=== PATIENT | male | born 1955 | race Caucasian/White ===

== ENCOUNTER → 2016-06-29 | Outpatient (CLI) | payer BC ==
[~2016-06-29] MED LIST: ASPCH81X PO; ASPI81TA28 PO; ESCI10TA17 PO; IMD2X PO; LISI20TA3 PO; LSN20 PO; MENTOIN TD; METO100T14 PO; METO25TA56 PO; NTRSLP4 SL; OMEP40CA41 PO; PRLSR20 PO; PSYL48.59 PO; PSYL55.43 PO; SALI0.657 NAE; SIMV80TA2 PO; TRIA0.5C9
[2016-06-29 13:11] LABS: MEAN CORPUSCULAR HGB CONC 32.9 g/dl (32-36)
[2016-06-29 13:21] LABS: HEMATOCRIT 30.1 % (42-52); MEAN CELL VOLUME 96.8 fL (80-100); MEAN CORPUSCULAR HEMOGLOBIN 31.8 pg (25-34); RED BLOOD COUNT 3.11 M/uL (4.7-6.1); WHITE BLOOD COUNT 4.25 K/uL (4.8-10.8)
[2016-06-29 13:33] LABS: BASO % 1.2 %; BASO ABS # 0.05 K/uL (0-0.2); COMPLETE YES; EOS % 29.4 %; LYMPH % 24.9 %; LYMPH ABS # 1.06 K/uL (1.2-3.4); MONO % 5.2 %; NEUT % 39.3 %; PLATELET COUNT 44 K/uL (130-400); PLT ESTIMATE DECREASED
== END | disposition home or self-care (01) ==
LOC: C.LABMFLN 08:52
PROVIDERS: ATTEND Internal Medicine
DX: D64.9 Anemia, unspecified (principal)

== ENCOUNTER → 2016-07-07 | Outpatient (CLI) | payer BC ==
--- NOTE | 2016-07-07 12:28 | DIAGNOSTIC IMAGING REPORT ---
NUCLEAR HEPATOBILIARY SCAN CLINICAL HISTORY: Right upper quadrant abdominal pain. COMPARISON STUDY: Abdominal CT dated 04/29/2016. TECHNIQUE: Dynamic images of the liver and anterior abdomen were obtained every 5 minutes for a total of 35 minutes following the IV administration of 5.5mCi of technetium 99m Choletec. FINDINGS: The hepatobiliary scan shows prompt and homogeneous hepatic uptake. There is visualized activity within the intra and extrahepatic biliary tree at 15 minutes, and within the gallbladder at 25 minutes. There is normal biliary to bowel transit, with small bowel visualized by 25 minutes. IMPRESSION: Unremarkable nuclear hepatobiliary scan. There is no scintigraphic evidence of cholecystitis. Electronically signed by: Raphael Reed M.D. 07/07/2016 12:26 PM Dictated Date/Time: 07/07/2016 12:25 PM
== END | disposition home or self-care (01) ==
LOC: C.NUCL 10:07
PROVIDERS: ATTEND Internal Medicine
DX: R10.9 Unspecified abdominal pain (principal)

== ENCOUNTER → 2016-09-29 | Day surgery (SDC) | payer BC ==
[2016-09-23 14:36] VITALS: BMI 26.0
[~2016-09-29] VITALS: Ht 177.8 cm; Wt 81.8 kg
[~2016-09-29] MED LIST changes: -ASPI81TA28 PO; -IMD2X PO; +LIDOCAINE HCL 2% 2 ML VIAL (20MG/ML) ONE; -LSN20 PO; -MENTOIN TD; -METO100T14 PO; -PRLSR20 PO; +PROPOFOL IV EMULSION 10 MG/ML 20 ML VIAL IV ONE; -PSYL55.43 PO; -SALI0.657 NAE; +SODIUM CHLORIDE 0.9% 500ML 500 ML IV ONE; -TRIA0.5C9
[2016-09-29 14:47] VITALS: Ht 177.8 cm; Wt 81.8 kg
--- NOTE | 2016-09-29 15:20 | Endo History and Physical ---
History & Physical Date of Service: September 29, 2016. Chief Complaint: ANEMIA Referring Physician: DR. KYLIE CHATTERJEE History of Present Illness 61 yo CM who presents for EGD secondary to anemia. Past Medical History Reflux, CABG, Heart Disease Past Surgical History Hx Cardiac Surgery: Yes (HEART CATH, AVR AND CAGG-3 VESSELS) Hx Internal Defibrillator: No Hx Pacemaker: No Hx Abdominal Surgery: Yes (RT INGUINAL HERNIA) Hx of Implantable Prosthesis: No Hx Post-Op Nausea and Vomiting: No Hx Cancer Surgery: No Hx Thoracic Surgery: No Hx Orthopedic: No Hx Urinary Tract Surgery: No Family History None Social History Smoking Status: Former Smoker Hx Substance Use: No Hx Alcohol Use: No Allergies Coded Allergies: Fluoxetine (Verified Allergy, Severe, rash, 09/23/16) Tramadol (Verified Allergy, Unknown, RASH, 09/23/16) Current Medications Reported Home Medications Medications Dose Route/Sig Max Daily Dose Days Date Category Metamucil (Psyllium) 48.57 % Pow 1 Dose PO DAILY PRN 09/23/16 Reported Zocor (Simvastatin) 80 Mg Tab 80 Mg PO QPM 09/23/16 Reported Prilosec (Omeprazole) 40 Mg Cap 40 Mg PO QAM 09/23/16 Reported Lopressor (Metoprolol Tartrate) 25 Mg Tab 25 Mg PO BID 09/23/16 Reported Prinivil (Lisinopril) 20 Mg Tab 20 Mg PO QAM 09/23/16 Reported Lexapro (Escitalopram Oxalate) 10 Mg Tab 10 Mg PO HS 09/23/16 Reported Aspirin Chewable (Aspirin) 81 Mg Chew 81 Mg PO QAM 09/23/16 Reported Vital Signs Weight (Kilograms): 81.82 Height (Feet): 5 Height (Inches): 10 Date Time Temp Pulse Resp B/P Pulse Ox O2 Delivery O2 Flow Rate FiO2 09/29/16 14:49 36.6 50 24 134/58 96 Room Air Physical Exam General Appearance: WD/WN, no apparent distress Respiratory/Chest: Auscultation: breath sounds normal Cardiovascular: Heart Auscultation: RRR Abdomen: Bowel Sounds: normal Inspection & Palpation: soft, non-distended, no tenderness, guarding & rebound Assessment and Plan Assessment: 61 yo CM who presents for EGD secondary to anemia. Plan: Proceed with EGD.
--- NOTE | 2016-09-29 16:06 | GI REPORT ---
Procedure Date: 09/29/2016 3:39 PM Procedure: Upper GI endoscopy Indications: Unexplained iron deficiency anemia Medicines: Monitored Anesthesia Care Complications: No immediate complications. Estimated Blood Loss: Estimated blood loss: none. Procedure: Pre-Anesthesia Assessment: - Prior to the procedure, a History and Physical was performed, and patient medications and allergies were reviewed. The patient's tolerance of previous anesthesia was also reviewed. The risks and benefits of the procedure and the sedation options and risks were discussed with the patient. All questions were answered, and informed consent was obtained. Prior Anticoagulants: The patient has taken aspirin, last dose was 1 day prior to procedure. ASA Grade Assessment: III - A patient with severe systemic disease. After reviewing the risks and benefits, the patient was deemed in satisfactory condition to undergo the procedure. After obtaining informed consent, the endoscope was passed under direct vision. Throughout the procedure, the patient's blood pressure, pulse, and oxygen saturations were monitored continuously. The scope was introduced through the mouth, and advanced to the second part of duodenum. The upper GI endoscopy was accomplished without difficulty. The patient tolerated the procedure well. Findings: The esophagus was normal. Localized mild inflammation characterized by erythema was found in the gastric antrum. Biopsies were taken with a cold forceps for histology. The examined duodenum was normal. Impression: - Normal esophagus. - Gastritis. Biopsied. - Normal examined duodenum. Recommendation: - Resume previous diet. - Continue present medications. - Await pathology results. - Return to GI office as previously scheduled. Emil Izquierdo DO 09/29/2016 4:06:35 PM This report has been signed electronically. Note Initiated On: 09/29/2016 3:39 PM I attest to the content of the Intraoperative Record and orders documented therein, exceptions below
--- NOTE | 2016-09-29 16:13 | Anesthesiology Progress Note ---
Anesthesia Post Op Note Date & Time September 29, 2016 at 16:12 Vital Signs Pain Intensity: 0 Vital Signs Past 12 Hours Date Time Temp Pulse Resp B/P Pulse Ox O2 Delivery O2 Flow Rate FiO2 09/29/16 16:00 36.6 49 16 131/55 96 Room Air 09/29/16 14:49 36.6 50 24 134/58 96 Room Air Notes Mental Status: alert / awake / arousable, participated in evaluation Pt Amnestic to Procedure: Yes Nausea / Vomiting: adequately controlled Pain: adequately controlled Airway Patency, RR, SpO2: stable & adequate BP & HR: stable & adequate Hydration State: stable & adequate Anesthetic Complications: no major complications apparent Pt doing very well.
[2016-09-29 16:22] VITALS: BP 151/62; PULSE 49; O2SAT 98
--- NOTE | 2016-09-29 16:22 | Discharge Instructions ---
Endoscopy Patient Instructions Date / Procedure(s) Performed September 29, 2016. EGD Allergy Information Coded Allergies: Fluoxetine (Verified Allergy, Severe, rash, 09/23/16) Tramadol (Verified Allergy, Unknown, RASH, 09/23/16) Discharge Date / Findings September 29, 2016. Gastritis s/p biopsies Medication Instructions Stopped Medication(s): ASPIRIN OK to resume all medications today as prescribed Reported Home Medications Medications Dose Route/Sig Max Daily Dose Days Date Category Metamucil (Psyllium) 48.57 % Pow 1 Dose PO DAILY PRN 09/23/16 Reported Zocor (Simvastatin) 80 Mg Tab 80 Mg PO QPM 09/23/16 Reported Prilosec (Omeprazole) 40 Mg Cap 40 Mg PO QAM 09/23/16 Reported Lopressor (Metoprolol Tartrate) 25 Mg Tab 25 Mg PO BID 09/23/16 Reported Prinivil (Lisinopril) 20 Mg Tab 20 Mg PO QAM 09/23/16 Reported Lexapro (Escitalopram Oxalate) 10 Mg Tab 10 Mg PO HS 09/23/16 Reported Aspirin Chewable (Aspirin) 81 Mg Chew 81 Mg PO QAM 09/23/16 Reported Provider Instructions Activity Restrictions - No exercising or heavy lifting for 24 hours. - Do not drink alcohol the day of the procedure. - Do not drive a car or operate machinery until the day after the procedure. - Do not make any important decisions or sign important papers in 24 hours after the procedure. Following Day: - Return to full activity which may include returning to work/school. Diet Start your diet with liquids and light foods (jello, soup, juice, toast). Then eat your usual diet if not nauseated. Treatment For Common After Affects For mild abdominal pain, bloating, or excessive gas: - Rest - Eat lightly - Lie on right side Follow-Up Information Follow-up with DR. KYLIE CHATTERJEE as scheduled Anesthesia Information What You Should Know You have had a procedure that required some medicine to reduce anxiety and discomfort. This treatment is called moderate sedation. After receiving the treatment, you may be sleepy, but you will be able to breathe on your own. The effects of the treatment may last for several hours. Follow these instructions along with Activity/Diet recommendations noted above: * Do NOT do anything where dizziness or clumsiness would be dangerous. * Rest quietly at home today, then you can be up and about tomorrow. * Have a responsible person stay with you the rest of today. * You may have had an I.V. today. If so, you may take the dressing off later today. Recommendations Call your doctor if: * Trouble breathing * Continuous vomiting for more than 24 hours * Temperature above 101 degrees * Severe abdominal pain or bloating * Pain not relieved by pain medicine ordered * There is increased drainage or redness from any incision * A large amount of rectal bleeding greater than 2-3 tablespoons. (If you had a polyp/s removed or have hemorrhoids, a small amount of blood - from the rectum is to be expected.) * You have any unanswered questions or concerns. IN THE EVENT OF A SERIOUS EMERGENCY, GO TO THE NEAREST EMERGENCY ROOM Your discharge instructions were prepared by provider Emil Izquierdo. Patient Instructions Signature Page Sinan Ibarra Patient (or Guardian) Signature/Date: I have read and understand the instructions given to me by my caregivers. Caregiver/RN/Doctor Signature/Date: The above-named patient and/or guardian has received patient instructions on this date. + Original Patient Signature Page (only) stays with chart. Please make copy for patient.
== END | disposition home or self-care (01) ==
LOC: C.GI 14:28
PROVIDERS: ATTEND Internal Medicine
DX: D64.9 Anemia, unspecified (principal); Z87.891 Personal history of nicotine dependence; Z79.82 Long term (current) use of aspirin

== ENCOUNTER → 2016-10-07 | Outpatient (CLI) | payer BC ==
[~2016-10-07] MED LIST changes: -LIDOCAINE HCL 2% 2 ML VIAL (20MG/ML) ONE; -PROPOFOL IV EMULSION 10 MG/ML 20 ML VIAL IV ONE; -SODIUM CHLORIDE 0.9% 500ML 500 ML IV ONE
[2016-10-07 18:30] LABS: BASO % 0.7 %; BASO ABS # 0.03 K/uL (0-0.2); COMPLETE YES; EOS % 7.8 %; IG% 0.2 %; LYMPH % 26.1 %; MEAN CELL VOLUME 100.6 fL (80-100); MEAN CORPUSCULAR HEMOGLOBIN 32.4 pg (25-34); MEAN CORPUSCULAR HGB CONC 32.2 g/dl (32-36); MONO % 9.5 %; NEUT % 55.7 %; PLATELET COUNT 74 K/uL (130-400); PLT ESTIMATE DECREASED; RED BLOOD COUNT 3.18 M/uL (4.7-6.1); WHITE BLOOD COUNT 4.22 K/uL (4.8-10.8)
== END | disposition home or self-care (01) ==
LOC: C.LABMFLN 10:58
PROVIDERS: ATTEND Internal Medicine Hematology & Oncology
DX: D69.6 Thrombocytopenia, unspecified (principal)

== ENCOUNTER 2017-01-21 07:30 | Emergency (ER) | payer BC ==
[~2017-01-21] VITALS: Ht 177.8 cm; Wt 85.8 kg
[~2017-01-21 07:30] MED LIST changes: -NTRSLP4 SL
[2017-01-21] MEDS ORDERED: SODIUM CHLORIDE 0.9% 1000ML 1,000 ML IV STA (07:44)
--- NOTE | 2017-01-21 07:45 | EMERGENCY ROOM VISIT NOTE ---
History Report prepared by Sarbjit: Morris Jeffrey Under the Supervision of: Dr. Moreno Alfaro M.D. First contact with patient: 07:35 Chief Complaint: CHEST PAIN Stated Complaint: CHEST/BACK/STOMACH PAINS Nursing Triage Summary: pt reports cp started 30 min ago radiates into back and abdomen History of Present Illness The patient is a 61 year old male who presents to the Emergency Room with complaints of a tearing chest pain that began 30 minutes ago. He rates his pain a 6/10 in severity. He states that his pain radiates into his back. At this time , the patient states his pain began in his abdomen, but then progressed into his chest. He has a past medical history of a CABG and a valve replacement. He denies any melena or hematochezia. He is not on a blood thinner. He notes that he is more pale than usual. Source of History: patient Onset: 30 minutes ago Position: chest Symptom Intensity: 6/10 Quality: other (tearing) Timing: constant Associated Symptoms: No melena, No hematochezia Note: He notes that he is more pale than usual. Review of Systems See HPI for pertinent positives & negatives. A total of 10 systems reviewed and were otherwise negative. 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 (5) Kidney disease Family History Diabetes mellitus FH: cancer FH: heart disease FH: lung disease Hypertension Idiopathic thrombocytopenic purpura Social History Smoking Status: Former Smoker Alcohol Use: none Drug Use: none Marital Status: Housing Status: lives with family Occupation Status: employed Current/Historical Medications Scheduled Aspirin (Aspirin Chewable), 81 MG PO QAM Escitalopram (Lexapro), 10 MG PO HS Lisinopril (Prinivil), 20 MG PO QAM Metoprolol Tartrate (Lopressor) (Lopressor), 25 MG PO BID Omeprazole (Prilosec), 40 MG PO QAM Simvastatin (Zocor), 80 MG PO QPM Scheduled PRN Psyllium (Metamucil), 1 DOSE PO DAILY PRN for PRN Allergies Coded Allergies: Fluoxetine (Verified Allergy, Severe, rash, 01/21/17) Tramadol (Verified Allergy, Unknown, RASH, 01/21/17) Physical Exam Vital Signs Date Time Temp Pulse Resp B/P (MAP) Pulse Ox O2 Delivery O2 Flow Rate FiO2 01/21/17 09:40 100 Room Air 01/21/17 09:18 53 18 126/70 100 Room Air 01/21/17 08:26 99 Room Air 01/21/17 08:26 59 18 123/57 99 Room Air 01/21/17 08:26 59 123/57 99 Room Air 01/21/17 08:07 50 18 120/51 01/21/17 07:43 55 01/21/17 07:32 36.7 47 20 89/51 96 Room Air Physical Exam GENERAL: Patient is pale, ill appearing, and in mild distress. HEENT: No acute trauma, normocephalic atraumatic, mucous membranes moist, no nasal congestion, no scleral icterus. NECK: No stridor, no adenopathy, no meningismus, trachea is midline. LUNGS: No dyspnea. Clear to auscultation and equal bilaterally. No wheeze, no rhonchi. HEART: Bradycardic rate and regular rhythm. Systolic murmur without any rubs or gallops appreciated. ABDOMEN: Soft, nontender, bowel sounds positive, no masses appreciated, no peritonitis. BACK: No midline tenderness, no CVA tenderness EXTREMITIES: Normal motion all extremities, no cyanosis, no edema. NEUROLOGIC: Alert and oriented, no acute motor or sensory deficits, no focal weakness, cranial nerves grossly intact. SKIN: No rash, no jaundice, no diaphoresis. Medical Decision & Procedures ER Provider Diagnostic Interpretation: Radiology results and stated below per my review and radiologist interpretation: CHEST COMBO ANGIOGRAPHY HISTORY: 61 years-old Male presents with acute chest pain with radiation to the back and abdomen. History of prostatic valve replacement COMPARISON: CT chest 06/25/2015 TECHNIQUE: CT angiogram of the chest was obtained both with and without the use of 94 mL Optiray 320. 3-D coronal and sagittal MIPS were obtained from the axial data set and cemented for review. Additional 3-D rendered images were generated from a separate workstation. A dose lowering technique was used consistent with the principals of [place]. FINDINGS: CTA CHEST: No intramural hematoma identified on the noncontrast scan. There is moderate to extensive atherosclerosis of the thoracic aorta and proximal great vessels. Prior median sternotomy and CABG. [place] coronary arterial calcifications are present. Prosthetic aortic valve is noted. There are annular calcifications of the mitral and aortic valve. Heart is mildly enlarged without pericardial effusion. The thoracic aorta is normal in caliber without aneurysm or dissection. 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 Reflux of contrast into the hepatic veins and IVC is likely secondary to technique. The opacified pulmonary arterial tree is within normal limits. CT CHEST: No dominant thyroid nodule. Mildly prominent likely physiologic right hilar lymph nodes are seen without pathologic adenopathy by CT size criteria. There is no pneumothorax. Small left pleural effusion is present with subsegmental consolidative opacities of the left lung base. There is minimal likely subsegmental atelectasis of the right lung. Central airways are patent with mild bronchial wall thickening of the left lung base. Nonspecific scattered nonenlarged gastrohepatic lymph nodes are seen. There is a small sliding-type hiatal hernia. Soft tissues are unremarkable. Bones are intact. IMPRESSION: 1. No thoracic aortic aneurysm or dissection. 2. Subsegmental consolidative opacities of the left lung base suggest pneumonia with associated small left pleural effusion. 3. Prior median sternotomy and CABG with prosthetic aortic valve. Moderate to extensive atherosclerotic plaquing involves the thoracic aorta and proximal great vessels. The above report was generated using voice recognition software. It may contain grammatical, syntax or spelling errors. Electronically signed by: Wenceslao Perez M.D. 01/21/2017 8:35 AM Dictated Date/Time: 01/21/2017 8:28 AM ANGIO ABD/PELVIS WITH CONTRAST CLINICAL HISTORY: 61 years-old Male presents with acute chest pain which radiates into the abdomen and back. History of aortic valve replacement and atherosclerotic vascular disease. COMPARISON STUDY: CTA chest of same day, CT abdomen and pelvis 04/29/2016. TECHNIQUE: Following the IV administration of 94 cc of Optiray 320, CT angiogram of the abdomen and pelvis was performed from the lung bases the proximal femora. Images are reviewed in the axial, sagittal, and coronal planes. 3-D MIPS images are created and assessed. IV contrast was administered without complication. A dose lowering technique was utilized adhering to the principles of ALARA. FINDINGS: CTA ABDOMEN AND PELVIS: Extensive atherosclerotic plaquing of the abdominal aorta and iliac vasculature is noted without aortic dissection or aneurysm. The celiac trunk, superior and inferior mesenteric arteries and iliac arteries are patent. Plaquing at the origin of the renal arteries, right greater than left appears to cause at least 50% stenosis. Atherosclerotic plaquing at the origins of the celiac trunk and superior mesenteric artery are nicely seen on image 40 of the sagittal MIPS series, with approximately 80% stenosis of the celiac trunk and 90% stenosis of the SMA. No filling defects are seen within the mesenteric vasculature. CT ABDOMEN/PELVIS: Small left pleural effusion is noted with subsegmental consolidative left basilar opacities, better evaluated on CT chest of same day. No pneumoperitoneum. Gallstones are seen layering within the gallbladder lumen. No CT evidence of acute cholecystitis. Liver, pancreas and adrenal glands are within normal limits. Spleen is mildly enlarged, 15 cm. There is mild to moderate right renal atrophy with probable cyst of the inferior pole, 4 mm. Left kidney is unremarkable. Ureters are within normal limits. Urinary bladder is partially collapsed. Scattered nonenlarged mesenteric and retroperitoneal lymph nodes are seen without pathologic adenopathy by CT size criteria. These may be reactive and appear unchanged from comparison. Small sliding type hiatal hernia. No bowel obstruction. Scattered noninflamed colonic diverticula are noted. No CT evidence of acute diverticulitis. Decreased caliber involving the descending colon and splenic flexure suggests nondistention without inflammatory stranding. Appendix is normal. Small left fat filled inguinal hernias present. Small fat filled periumbilical hernia is noted, diastases 1.5 cm. There is facet arthrosis of the lower lumbar spine. IMPRESSION: 1. Extensive atherosclerotic plaquing of the abdominal aorta and proximal branch vasculature without dissection or aneurysm. 2. 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 3. Narrowing of the bilateral renal artery origins, right greater than left is noted with moderate right renal atrophy which may be sequela of long-standing renal arterial hypertension. 4. Nonspecific splenomegaly. 5. Cholelithiasis without CT evidence of acute cholecystitis. 6. Colonic diverticulosis without CT evidence of acute diverticulitis. 7. Small sliding-type hiatal hernia. The above report was generated using voice recognition software. It may contain grammatical, syntax or spelling errors. Electronically signed by: Wenceslao Perez M.D. 01/21/2017 8:51 AM Dictated Date/Time: 01/21/2017 8:35 AM Laboratory Results 01/21/17 07:50 Red Blood Count 3.64, Mean Corpuscular Volume 96.4, Mean Corpuscular Hemoglobin 32.1, Mean Corpuscular Hemoglobin Concent 33.3, Neutrophils (%) (Auto) 59.7, Lymphocytes (%) (Auto) 25.4, Monocytes (%) (Auto) 8.7, Eosinophils (%) (Auto) 5.4, Basophils (%) (Auto) 0.8, Neutrophils # (Auto) 3.00, Lymphocytes # (Auto) 1.28, Monocytes # (Auto) 0.44, Eosinophils # (Auto) 0.27, Basophils # (Auto) 0.04 01/21/17 07:50 Test 01/21/17 07:50 01/21/17 07:55 01/21/17 08:22 White Blood Count 5.03 K/uL (4.8-10.8) Red Blood Count 3.64 M/uL (4.7-6.1) Hemoglobin 11.7 g/dL (14.0-18.0) Hematocrit 35.1 % (42-52) Mean Corpuscular Volume 96.4 fL (80-100) Mean Corpuscular Hemoglobin 32.1 pg (25-34) Mean Corpuscular Hemoglobin Concent 33.3 g/dl (32-36) Platelet Count 85 K/uL (130-400) Neutrophils (%) (Auto) 59.7 % Lymphocytes (%) (Auto) 25.4 % Monocytes (%) (Auto) 8.7 % Eosinophils (%) (Auto) 5.4 % Basophils (%) (Auto) 0.8 % Neutrophils # (Auto) 3.00 K/uL (1.4-6.5) Lymphocytes # (Auto) 1.28 K/uL (1.2-3.4) Monocytes # (Auto) 0.44 K/uL (0.11-0.59) Eosinophils # (Auto) 0.27 K/uL (0-0.5) Basophils # (Auto) 0.04 K/uL (0-0.2) RDW Standard Deviation 51.4 fL (36.4-46.3) RDW Coefficient of Variation 14.6 % (11.5-14.5) Immature Granulocyte % (Auto) 0.0 % Immature Granulocyte # (Auto) 0.00 K/uL (0.00-0.02) Platelet Estimate DECREASED Red Blood Cell Morphology Unremarkable Prothrombin Time 10.9 SECONDS (9.0-12.0) Prothromb Time International Ratio 1.0 (0.9-1.1) Activated Partial Thromboplast Time 23.1 SECONDS (21.0-31.0) Partial Thromboplastin Ratio 0.9 Est Creatinine Clear Calc Drug Dose 56.5 ml/min Estimated GFR () 62.0 Estimated GFR (Non- 53.5 BUN/Creatinine Ratio 22.4 (10-20) Calcium Level 9.1 mg/dl (8.5-10.1) Total Bilirubin 0.6 mg/dl (0.2-1) Aspartate Amino Transf (AST/SGOT) 30 U/L (15-37) Alanine Aminotransferase (ALT/SGPT) 33 U/L (12-78) Alkaline Phosphatase 94 U/L (45-117) Total Creatine Kinase 118 U/L (39-308) Creatine Kinase MB 3.0 ng/ml (0.5-3.6) Creatine Kinase MB Ratio 2.5 (0-3.0) Troponin I < 0.015 ng/ml (0-0.045) Total Protein 7.2 gm/dl (6.4-8.2) Albumin 3.6 gm/dl (3.4-5.0) Globulin 3.6 gm/dl (2.5-4.0) Albumin/Globulin Ratio 1.0 (0.9-2) Bedside Hemoglobin 12.2 g/dl (14.0-18.0) Bedside Hematocrit 36 % (42-52) Bedside Sodium 142 mEq/L (135-144) Bedside Potassium 3.8 mEq/L (3.3-5.0) Bedside Chloride 105 mEq/L (101-112) Bedside Total CO2 25 mEq/l (24-31) Anion Gap 17.0 mmol/L (16-25) Bedside Blood Urea Nitrogen 31 mg/dl (7-18) Bedside Creatinine 1.4 mg/dl (0.6-1.3) Bedside Glucose (other) 144 mg/dl (70-99) Bedside Ionized Calcium (Rogelio) 1.21 mmol/l (1.12-1.32) Bedside Troponin I < 0.030 ng/ml (0-0.045) Laboratory results as reviewed by me. Medications Administered Medications (Trade) Dose Ordered Sig/Brayan Route Start Time Stop Time Status Last Admin Dose Admin Sodium Chloride 1,000 ml @ 999 mls/hr Q1H1M STAT IV 01/21/17 07:44 01/21/17 08:44 DC 01/21/17 07:52 999 MLS/HR Sodium Chloride 1,000 ml @ 80 mls/hr [id number] IV 01/21/17 10:26 02/20/17 10:25 01/21/17 11:42 80 MLS/HR ECG Indication: chest pain Rate (beats per minute): 55 Rhythm: sinus bradycardia Findings: no acute ischemic change, no ectopy ED Course 734: The patient was evaluated in room B6. A complete history and physical exam was performed. 929: Upon reevaluation, the patient is resting. Discussed results and treatment plan with the patient. He verbalized understanding and agreement with the treatment plan. The patient will be evaluated Dr. Maureen CASTILLO, for further management. Medical Decision Differential: Cholecystitis, Gallbladder disfunction, Hepatic Disfunction, Gastritis/PUD, Pancreatitis, ACS, Aortic Pathology, amongst other pathologies entertained. Resident Physician Supervision Note: Dr. Maurilio Krishna was resident physician during care of patient. I separately evaluated patient and did history and exam. I discussed the case with the resident and generally agree with the findings and plan. 61 yr old male arrives with substernal chest pain, abdominal pain tearing in to back and is hypotensive. History of aortic replacement. Ill appearing and tail. Two IVs obtained, Istat with Cr 1.4 and taken emergently to CT to rule out dissection given history and exam. CTs without acute finding though does have severe SMA stenosis. It could be he is having periodic ischemia which would explain periodic abdominal pains. With improvement in BP he has resolution of symptoms and feeling much better. WIll need to come in for cardiac rule out given his history along with discussion of further evaluation of pain/symptoms. Medication Reconcilliation Current Medication List: was personally reviewed by me Blood Pressure Screening Patient's blood pressure: Low blood pressure Will be addressed as an inpatient. Consults Time Called: [phone] Consulting Physician: Dr. Maureen CASTILLO Returned Call: [phone] Discussed the patient's case. The patient will be evaluated for further treatment and disposition. Impression Primary Impression: Substernal chest pain Additional Impression: Hypotension Scribe Attestation The scribe's documentation has been prepared under my direction and personally reviewed by me in its entirety. I confirm that the note above accurately reflects all work, treatment, procedures, and medical decision making performed by me. Departure Information Dispostion Being Evaluated By Hospitalist Referrals Pro,Hill Willson M.D. (PCP) Patient Instructions [facility] Problem Qualifiers
[2017-01-21] MEDS ORDERED: OPTIRAY 320 IV PRN (08:00)
[2017-01-21 08:07] LABS: ISTAT CREATININE 1.4 mg/dl (0.6-1.3); ISTAT HEMOGLOBIN 12.2 g/dl (14.0-18.0); ISTAT IONIZED CALCIUM 1.21 mmol/l (1.12-1.32)
--- NOTE | 2017-01-21 08:11 | EMERGENCY ROOM VISIT NOTE ---
History First contact with patient: 07:35 Chief Complaint: CHEST PAIN Stated Complaint: CHEST/BACK/STOMACH PAINS Nursing Triage Summary: pt reports cp started 30 min ago radiates into back and abdomen History of Present Illness The patient is a 61 year old male with Hx of chronic ITP, paroxysmal atrial fibrillation, CABG and aortic valve replacement in 2014 who presents to the Emergency Room with complaints of abdominal/chest pain radiating to his back. This started 30 minutes before arrival in the ER. It started in his central abdomen then radiated to his chest and back, came on at rest shortly following a normal bowel movement, severity 8/10, was the worse it has been on onset then slowly progressively improved. He does not feel it is related to food. He has been having similar but less intense pains over the last week every other day lasting for around 5 minutes which come on at rest and when lying down. He also reports a similar pain the last year assessed at a different hospital but he cannot remember what he was diagnosed with. He remembers going up on his PPI at that time. He has never had an ME and denies angina but has coronary artery disease which was found on routine cardiac cath for pre-op assessment for his AVR. He took his metoprolol and aspirin as usual this morning. Review of Systems Constitutional: No fever, No chills Eyes: No worsening of vision ENT: No hearing loss Respiratory: No cough, No sputum, No wheezing, No shortness of breath Cardiovascular: + chest pain, No orthopnea, No PND, No edema, No claudication, No palpitations Abdomen: + pain, No nausea, No vomiting, No diarrhea, No constipation, No GI bleeding Musculoskeletal: No joint pain, No muscle pain Genitourinary - Male: No hematuria, No dysuria, No urinary frequency Endocrine: No fatigue, No excessive thirst, No excessive urination Hematologic / Lymphatic: No abnormal bleeding/bruising Integumentary: No rash, No itch Past Medical/Surgical History Medical Problems: (1) Diarrhea (2) Heart disease (3) Hypertension (4) 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 (5) Kidney disease Family History Diabetes mellitus FH: cancer FH: heart disease FH: lung disease Hypertension Idiopathic thrombocytopenic purpura Denies family history of aortic dissection or aneurysm Social History Smoking Status: Former Smoker Alcohol Use: none Drug Use: none Marital Status: Housing Status: lives with family Occupation Status: employed Current/Historical Medications Scheduled Aspirin (Aspirin Chewable), 81 MG PO QAM Escitalopram (Lexapro), 10 MG PO HS Lisinopril (Prinivil), 20 MG PO QAM Metoprolol Tartrate (Lopressor) (Lopressor), 25 MG PO BID Omeprazole (Prilosec), 40 MG PO QAM Simvastatin (Zocor), 80 MG PO QPM Scheduled PRN Psyllium (Metamucil), 1 DOSE PO DAILY PRN for PRN Physical Exam Vital Signs Date Time Temp Pulse Resp B/P (MAP) Pulse Ox O2 Delivery O2 Flow Rate FiO2 01/21/17 09:40 100 Room Air 01/21/17 09:18 53 18 126/70 100 Room Air 01/21/17 08:26 99 Room Air 01/21/17 08:26 59 18 123/57 99 Room Air 01/21/17 08:26 59 123/57 99 Room Air 01/21/17 08:07 50 18 120/51 01/21/17 07:43 55 01/21/17 07:32 36.7 47 20 89/51 96 Room Air Physical Exam General Appearance: no apparent distress, + pertinent finding (appears pale) Eyes: normal inspection, PERRL, EOMI Neck: supple, no adenopathy, no JVD, no carotid bruits, trachea midline Respiratory/Chest: chest non-tender, lungs clear, normal breath sounds, no respiratory distress, no accessory muscle use Cardiovascular: regular rate, rhythm, no murmur, normal peripheral pulses ( no radial-radial or left radial-left femoral delay) Abdomen / GI: normal bowel sounds, non tender, soft, no organomegaly Back: no CVA tenderness Extremities: normal inspection, no calf tenderness, normal capillary refill , no pedal edema 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 History of prostatic valve replacement COMPARISON: CT chest 06/25/2015 TECHNIQUE: CT angiogram of the chest was obtained both with and without the use of 94 mL Optiray 320. 3-D coronal and sagittal MIPS were obtained from the axial data set and cemented for review. Additional 3-D rendered images were generated from a separate workstation. A dose lowering technique was used consistent with the principals of HAMILTON. FINDINGS: CTA CHEST: No intramural hematoma identified on the noncontrast scan. There is moderate to extensive atherosclerosis of the thoracic aorta and proximal great vessels. Prior median sternotomy and CABG. [place] coronary arterial calcifications are present. Prosthetic aortic valve is noted. There are annular calcifications of the mitral and aortic valve. Heart is mildly enlarged without pericardial effusion. The thoracic aorta is normal in caliber without aneurysm or dissection. 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 Reflux of contrast into the hepatic veins and IVC is likely secondary to technique. The opacified pulmonary arterial tree is within normal limits. CT CHEST: No dominant thyroid nodule. Mildly prominent likely physiologic right hilar lymph nodes are seen without pathologic adenopathy by CT size criteria. There is no pneumothorax. Small left pleural effusion is present with subsegmental consolidative opacities of the left lung base. There is minimal likely subsegmental atelectasis of the right lung. Central airways are patent with mild bronchial wall thickening of the left lung base. Nonspecific scattered nonenlarged gastrohepatic lymph nodes are seen. There is a small sliding-type hiatal hernia. Soft tissues are unremarkable. Bones are intact. IMPRESSION: 1. No thoracic aortic aneurysm or dissection. 2. Subsegmental consolidative opacities of the left lung base suggest pneumonia with associated small left pleural effusion. 3. Prior median sternotomy and CABG with prosthetic aortic valve. Moderate to extensive atherosclerotic plaquing involves the thoracic aorta and proximal great vessels. The above report was generated using voice recognition software. It may contain grammatical, syntax or spelling errors. Electronically signed by: Wenceslao Perez M.D. 01/21/2017 8:35 AM Dictated Date/Time: 01/21/2017 8:28 AM ANGIO ABD/PELVIS WITH CONTRAST CLINICAL HISTORY: 61 years-old Male presents with acute chest pain which radiates into the abdomen and back. History of aortic valve replacement and atherosclerotic vascular disease. COMPARISON STUDY: CTA chest of same day, CT abdomen and pelvis 04/29/2016. TECHNIQUE: Following the IV administration of 94 cc of Optiray 320, CT angiogram of the abdomen and pelvis was performed from the lung bases the proximal femora. Images are reviewed in the axial, sagittal, and coronal planes. 3-D MIPS images are created and assessed. IV contrast was administered without complication. A dose lowering technique was utilized adhering to the principles of ALARA. FINDINGS: CTA ABDOMEN AND PELVIS: Extensive atherosclerotic plaquing of the abdominal aorta and iliac vasculature is noted without aortic dissection or aneurysm. The celiac trunk, superior and inferior mesenteric arteries and iliac arteries are patent. Plaquing at the origin of the renal arteries, right greater than left appears to cause at least 50% stenosis. Atherosclerotic plaquing at the origins of the celiac trunk and superior mesenteric artery are nicely seen on image 40 of the sagittal MIPS series, with approximately 80% stenosis of the celiac trunk and 90% stenosis of the SMA. No filling defects are seen within the mesenteric vasculature. CT ABDOMEN/PELVIS: Small left pleural effusion is noted with subsegmental consolidative left basilar opacities, better evaluated on CT chest of same day. No pneumoperitoneum. Gallstones are seen layering within the gallbladder lumen. No CT evidence of acute cholecystitis. Liver, pancreas and adrenal glands are within normal limits. Spleen is mildly enlarged, 15 cm. There is mild to moderate right renal atrophy with probable cyst of the inferior pole, 4 mm. Left kidney is unremarkable. Ureters are within normal limits. Urinary bladder is partially collapsed. Scattered nonenlarged mesenteric and retroperitoneal lymph nodes are seen without pathologic adenopathy by CT size criteria. These may be reactive and appear unchanged from comparison. Small sliding type hiatal hernia. No bowel obstruction. Scattered noninflamed colonic diverticula are noted. No CT evidence of acute diverticulitis. Decreased caliber involving the descending colon and splenic flexure suggests nondistention without inflammatory stranding. Appendix is normal. Small left fat filled inguinal hernias present. Small fat filled periumbilical hernia is noted, diastases 1.5 cm. There is facet arthrosis of the lower lumbar spine. IMPRESSION: 1. Extensive atherosclerotic plaquing of the abdominal aorta and proximal branch vasculature without dissection or aneurysm. 2. 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 3. Narrowing of the bilateral renal artery origins, right greater than left is noted with moderate right renal atrophy which may be sequela of long-standing renal arterial hypertension. 4. Nonspecific splenomegaly. 5. Cholelithiasis without CT evidence of acute cholecystitis. 6. Colonic diverticulosis without CT evidence of acute diverticulitis. 7. Small sliding-type hiatal hernia. The above report was generated using voice recognition software. It may contain grammatical, syntax or spelling errors. Electronically signed by: Wenceslao Perez M.D. 01/21/2017 8:51 AM Dictated Date/Time: 01/21/2017 8:35 AM Laboratory Results 01/21/17 07:50 Red Blood Count 3.64, Mean Corpuscular Volume 96.4, Mean Corpuscular Hemoglobin 32.1, Mean Corpuscular Hemoglobin Concent 33.3, Neutrophils (%) (Auto) 59.7, Lymphocytes (%) (Auto) 25.4, Monocytes (%) (Auto) 8.7, Eosinophils (%) (Auto) 5.4, Basophils (%) (Auto) 0.8, Neutrophils # (Auto) 3.00, Lymphocytes # (Auto) 1.28, Monocytes # (Auto) 0.44, Eosinophils # (Auto) 0.27, Basophils # (Auto) 0.04 01/21/17 07:50 Test 01/21/17 07:50 01/21/17 07:55 01/21/17 08:22 White Blood Count 5.03 K/uL (4.8-10.8) Red Blood Count 3.64 M/uL (4.7-6.1) Hemoglobin 11.7 g/dL (14.0-18.0) Hematocrit 35.1 % (42-52) Mean Corpuscular Volume 96.4 fL (80-100) Mean Corpuscular Hemoglobin 32.1 pg (25-34) Mean Corpuscular Hemoglobin Concent 33.3 g/dl (32-36) Platelet Count 85 K/uL (130-400) Neutrophils (%) (Auto) 59.7 % Lymphocytes (%) (Auto) 25.4 % Monocytes (%) (Auto) 8.7 % Eosinophils (%) (Auto) 5.4 % Basophils (%) (Auto) 0.8 % Neutrophils # (Auto) 3.00 K/uL (1.4-6.5) Lymphocytes # (Auto) 1.28 K/uL (1.2-3.4) Monocytes # (Auto) 0.44 K/uL (0.11-0.59) Eosinophils # (Auto) 0.27 K/uL (0-0.5) Basophils # (Auto) 0.04 K/uL (0-0.2) RDW Standard Deviation 51.4 fL (36.4-46.3) RDW Coefficient of Variation 14.6 % (11.5-14.5) Immature Granulocyte % (Auto) 0.0 % Immature Granulocyte # (Auto) 0.00 K/uL (0.00-0.02) Platelet Estimate DECREASED Red Blood Cell Morphology Unremarkable Prothrombin Time 10.9 SECONDS (9.0-12.0) Prothromb Time International Ratio 1.0 (0.9-1.1) Activated Partial Thromboplast Time 23.1 SECONDS (21.0-31.0) Partial Thromboplastin Ratio 0.9 Est Creatinine Clear Calc Drug Dose 56.5 ml/min Estimated GFR () 62.0 Estimated GFR (Non- 53.5 BUN/Creatinine Ratio 22.4 (10-20) Calcium Level 9.1 mg/dl (8.5-10.1) Total Bilirubin 0.6 mg/dl (0.2-1) Aspartate Amino Transf (AST/SGOT) 30 U/L (15-37) Alanine Aminotransferase (ALT/SGPT) 33 U/L (12-78) Alkaline Phosphatase 94 U/L (45-117) Total Creatine Kinase 118 U/L (39-308) Creatine Kinase MB 3.0 ng/ml (0.5-3.6) Creatine Kinase MB Ratio 2.5 (0-3.0) Troponin I < 0.015 ng/ml (0-0.045) Total Protein 7.2 gm/dl (6.4-8.2) Albumin 3.6 gm/dl (3.4-5.0) Globulin 3.6 gm/dl (2.5-4.0) Albumin/Globulin Ratio 1.0 (0.9-2) Bedside Hemoglobin 12.2 g/dl (14.0-18.0) Bedside Hematocrit 36 % (42-52) Bedside Sodium 142 mEq/L (135-144) Bedside Potassium 3.8 mEq/L (3.3-5.0) Bedside Chloride 105 mEq/L (101-112) Bedside Total CO2 25 mEq/l (24-31) Anion Gap 17.0 mmol/L (16-25) Bedside Blood Urea Nitrogen 31 mg/dl (7-18) Bedside Creatinine 1.4 mg/dl (0.6-1.3) Bedside Glucose (other) 144 mg/dl (70-99) Bedside Ionized Calcium (Rogelio) 1.21 mmol/l (1.12-1.32) Bedside Troponin I < 0.030 ng/ml (0-0.045) Medications Administered Medications (Trade) Dose Ordered Sig/Brayan Route Start Time Stop Time Status Last Admin Dose Admin Sodium Chloride 1,000 ml @ 999 mls/hr Q1H1M STAT IV 01/21/17 07:44 01/21/17 08:44 DC 01/21/17 07:52 999 MLS/HR ECG Indication: chest pain Rate (beats per minute): 55 Rhythm: sinus bradycardia Findings: no acute ischemic change Change: compared with EKG from 30 APR 2016 - no longer in atrial fibrillation, no longer having TWI in anterior leads ED Course 7:38am Brief history and physical performed in room B6 - concerning for aortic dissection 7:40am Patient was hypotensive, appeared pale with Hx chest/abdominal pain radiating to back (no current symptoms) therefore discussed case with Dr Alfaro who came to perform H&P 7:50am Complete history and physical performed by myself 8:50am Patient was reassessed and continues to be asymptomatic. Medical Decision Prior records/ancillary studies reviewed. Triage Nursing notes reviewed. Additional history obtained from patient. The patient's history was concerning for chest pain radiating to his back for aortic dissection. Differential diagnosis: Etiologies such as cardiac ischemia, aortic dissection, pulmonary embolism, pneumonia, pneumothorax, musculoskeletal, infections, pericarditis, myocarditis , esophageal rupture, gastrointestinal, as well as others were entertained. Physical examination: As above. VS initially showed hypotension which improved with fluid bolus. His HR is in the 50's which as per his last outpatient clinic note appears to be at his baseline. ER treatment provided: 1L NSS bolus On reassessment the patient was asymptomatic and blood pressure has improved. Diagnostic interpretation by me: The electrocardiogram was negative for ischemic change. The labs revealed decreased platelets consistent with his chronic ITP Imaging studies: CT Angio Aorta chest and abdo/pelvis did not reveal a dissection but he does have some stenosis of SMA and celiac trunks. Possible consolidation in left lower lobe although history not typical for pneumonia therefore was not treated while in the ER. Consultation: A consultation was placed with the [facility] hospitalist as a chest pain rule out given his cardiac history and severity of symptoms. As his EKG showed no ischemic changes and he took his 81mg of aspirin already this morning and given low platelets - no additional antiplatelet medication was given. The case was discussed and diagnostics were reviewed. The patient was evaluated in the ER for further treatment. Medication Reconcilliation Current Medication List: was personally reviewed by me Consults Time Called: 9:01am Consulting Physician: [facility] Hospitalist Returned Call: 9:28 am Impression Primary Impression: Chest pain, rule out acute myocardial infarction Additional Impression: Chronic ITP (idiopathic thrombocytopenia) Departure Information Dispostion Being Evaluated By Hospitalist Condition GOOD Referrals Pro,Hill Willson M.D. (PCP) Patient Instructions My [facility] Problem Qualifiers
[2017-01-21 08:17] LABS: PARTIAL THROMBOPLASTIN RATIO 0.9; PROTHROMBIN TIME (PATIENT) 10.9 SECONDS (9.0-12.0)
[2017-01-21 08:23] LABS: ALT/SGPT 33 U/L (12-78); BLOOD UREA NITROGEN 31 mg/dl (7-18); BUN/CREATININE RATIO 22.4 (10-20); CALCIUM 9.1 mg/dl (8.5-10.1); CARBON DIOXIDE 25 mmol/L (21-32); CHLORIDE 108 mmol/L (98-107); GLUCOSE 139 mg/dl (70-99); POTASSIUM 3.8 mmol/L (3.5-5.1); SODIUM 142 mmol/L (136-145)
[2017-01-21 08:28] LABS: ALKALINE PHOSPHATASE 94 U/L (45-117); AST/SGOT 30 U/L (15-37); CKMB/CK RATIO 2.5 (0-3.0)
--- NOTE | 2017-01-21 08:36 | DIAGNOSTIC IMAGING REPORT ---
CHEST COMBO ANGIOGRAPHY HISTORY: 61 years-old Male presents with acute chest pain with radiation to the back and abdomen. History of prostatic valve replacement COMPARISON: CT chest 06/25/2015 TECHNIQUE: CT angiogram of the chest was obtained both with and without the use of 94 mL Optiray 320. 3-D coronal and sagittal MIPS were obtained from the axial data set and cemented for review. Additional 3-D rendered images were generated from a separate workstation. A dose lowering technique was used consistent with the principals of H[place]. FINDINGS: CTA CHEST: No intramural hematoma identified on the noncontrast scan. There is moderate to extensive atherosclerosis of the thoracic aorta and proximal great vessels. Prior median sternotomy and CABG. [place] coronary arterial calcifications are present. Prosthetic aortic valve is noted. There are annular calcifications of the mitral and aortic valve. Heart is mildly enlarged without pericardial effusion. The thoracic aorta is normal in caliber without aneurysm or dissection. 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 Reflux of contrast into the hepatic veins and IVC is likely secondary to technique. The opacified pulmonary arterial tree is within normal limits. CT CHEST: No dominant thyroid nodule. Mildly prominent likely physiologic right hilar lymph nodes are seen without pathologic adenopathy by CT size criteria. There is no pneumothorax. Small left pleural effusion is present with subsegmental consolidative opacities of the left lung base. There is minimal likely subsegmental atelectasis of the right lung. Central airways are patent with mild bronchial wall thickening of the left lung base. Nonspecific scattered nonenlarged gastrohepatic lymph nodes are seen. There is a small sliding-type hiatal hernia. Soft tissues are unremarkable. Bones are intact. IMPRESSION: 1. No thoracic aortic aneurysm or dissection. 2. Subsegmental consolidative opacities of the left lung base suggest pneumonia with associated small left pleural effusion. 3. Prior median sternotomy and CABG with prosthetic aortic valve. Moderate to extensive atherosclerotic plaquing involves the thoracic aorta and proximal great vessels. The above report was generated using voice recognition software. It may contain grammatical, syntax or spelling errors. Electronically signed by: Wenceslao Perez M.D. 01/21/2017 8:35 AM Dictated Date/Time: 01/21/2017 8:28 AM
--- NOTE | 2017-01-21 08:52 | DIAGNOSTIC IMAGING REPORT ---
ANGIO ABD/PELVIS WITH CONTRAST CLINICAL HISTORY: 61 years-old Male presents with acute chest pain which radiates into the abdomen and back. History of aortic valve replacement and atherosclerotic vascular disease. COMPARISON STUDY: CTA chest of same day, CT abdomen and pelvis 04/29/2016. TECHNIQUE: Following the IV administration of 94 cc of Optiray 320, CT angiogram of the abdomen and pelvis was performed from the lung bases the proximal femora. Images are reviewed in the axial, sagittal, and coronal planes. 3-D MIPS images are created and assessed. IV contrast was administered without complication. A dose lowering technique was utilized adhering to the principles of ALARA. FINDINGS: CTA ABDOMEN AND PELVIS: Extensive atherosclerotic plaquing of the abdominal aorta and iliac vasculature is noted without aortic dissection or aneurysm. The celiac trunk, superior and inferior mesenteric arteries and iliac arteries are patent. Plaquing at the origin of the renal arteries, right greater than left appears to cause at least 50% stenosis. Atherosclerotic plaquing at the origins of the celiac trunk and superior mesenteric artery are nicely seen on image 40 of the sagittal MIPS series, with approximately 80% stenosis of the celiac trunk and 90% stenosis of the SMA. No filling defects are seen within the mesenteric vasculature. CT ABDOMEN/PELVIS: Small left pleural effusion is noted with subsegmental consolidative left basilar opacities, better evaluated on CT chest of same day. No pneumoperitoneum. Gallstones are seen layering within the gallbladder lumen. No CT evidence of acute cholecystitis. Liver, pancreas and adrenal glands are within normal limits. Spleen is mildly enlarged, 15 cm. There is mild to moderate right renal atrophy with probable cyst of the inferior pole, 4 mm. Left kidney is unremarkable. Ureters are within normal limits. Urinary bladder is partially collapsed. Scattered nonenlarged mesenteric and retroperitoneal lymph nodes are seen without pathologic adenopathy by CT size criteria. These may be reactive and appear unchanged from comparison. Small sliding type hiatal hernia. No bowel obstruction. Scattered noninflamed colonic diverticula are noted. No CT evidence of acute diverticulitis. Decreased caliber involving the descending colon and splenic flexure suggests nondistention without inflammatory stranding. Appendix is normal. Small left fat filled inguinal hernias present. Small fat filled periumbilical hernia is noted, diastases 1.5 cm. There is facet arthrosis of the lower lumbar spine. IMPRESSION: 1. Extensive atherosclerotic plaquing of the abdominal aorta and proximal branch vasculature without dissection or aneurysm. 2. 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 3. Narrowing of the bilateral renal artery origins, right greater than left is noted with moderate right renal atrophy which may be sequela of long-standing renal arterial hypertension. 4. Nonspecific splenomegaly. 5. Cholelithiasis without CT evidence of acute cholecystitis. 6. Colonic diverticulosis without CT evidence of acute diverticulitis. 7. Small sliding-type hiatal hernia. The above report was generated using voice recognition software. It may contain grammatical, syntax or spelling errors. Electronically signed by: Wenceslao Perez M.D. 01/21/2017 8:51 AM Dictated Date/Time: 01/21/2017 8:35 AM
[2017-01-21 08:55] LABS: HEMATOCRIT 35.1 % (42-52); MEAN CELL VOLUME 96.4 fL (80-100); MEAN CORPUSCULAR HEMOGLOBIN 32.1 pg (25-34); MEAN CORPUSCULAR HGB CONC 33.3 g/dl (32-36); PLATELET COUNT 85 K/uL (130-400); RED BLOOD COUNT 3.64 M/uL (4.7-6.1); WHITE BLOOD COUNT 5.03 K/uL (4.8-10.8)
[2017-01-21 08:57] LABS: BASO % 0.8 %; BASO ABS # 0.04 K/uL (0-0.2); COMPLETE YES; EOS % 5.4 %; LYMPH % 25.4 %; LYMPH ABS # 1.28 K/uL (1.2-3.4); MONO % 8.7 %; NEUT % 59.7 %; PLT ESTIMATE DECREASED
[2017-01-21 09:40] VITALS: O2SAT 100; Ht 177.8 cm; Wt 85.8 kg
--- NOTE | 2017-01-21 10:24 | History and Physical ---
History & Physical Date & Time of Service: Jan 21, 2017 at 09:55 Chief Complaint: Chest/Back/Stomach Pains Primary Care Physician: Hill Daniels M.D. History of Present Illness Source: patient This is a 61 yo M with PMHx of paroxysmal atrial fibrillation, HLD, HTN, CAD status post CABG x 3 and bioprosthetic AVR in 01/2015, GERD, thrombocytopenia secondary to ITP, chronic anemia, and anxiety/depression who presents with acute onset of substernal chest pain this morning. The patient's is present with him at bedside. 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 Pain then radiated up into his chest into his back. He notes that he went to the bathroom and moved his bowels, and the pain did not resolve. He denies any palpitation, flutter, shortness of breath, radiation to the jaw or arms. He has never experienced this type of pain before. This morning he took all of his normally scheduled medications. He presented to the ER and at the time the CT scan was being obtained his pain had subsided, which he thinks is between 30 min to 1 hour. The pain is completely resolved at the time of my interview. Here in the ER the patient was resuscitated with normal saline as he was initially slightly hypotensive in the 80s, vital signs otherwise appear to be stable. EKG reviewed showing sinus bradycardia, which he has a history of, and was without any ST-T wave inversions or signs of ischemic changes. Initial troponin was negative. Creatinine is 1.4, around his baseline Past Medical/Surgical History Medical Problems: (1) Heart disease Status: Chronic (2) Hypertension Status: Chronic (3) Kidney disease Status: Chronic Thrombocytopenia secondary to ITP CAD HTN Chronic anemia Dyslipidemia Paroxysmal atrial fibrillation AVR Anxiety/depression GERD Cholelithiasis Surgical history AVR and coronary artery bypass grafting x3 in 2014 Family History Diabetes mellitus FH: cancer FH: heart disease FH: lung disease Hypertension Idiopathic thrombocytopenic purpura Social History Smoking Status: Former Smoker Smokeless Tobacco Use: No Alcohol Use: none Drug Use: none Marital Status: Housing status: lives with significant other Occupational Status: employed Multi-Drug Resistant Organisms History of MDRO: No Allergies Coded Allergies: Fluoxetine (Verified Allergy, Severe, rash, 01/21/17) Tramadol (Verified Allergy, Unknown, RASH, 01/21/17) Home Medications Scheduled Aspirin (Aspirin Chewable), 81 MG PO QAM Escitalopram (Lexapro), 10 MG PO HS Lisinopril (Prinivil), 20 MG PO QAM Metoprolol Tartrate (Lopressor) (Lopressor), 25 MG PO BID Omeprazole (Prilosec), 40 MG PO QAM Simvastatin (Zocor), 80 MG PO QPM Scheduled PRN Psyllium (Metamucil), 1 DOSE PO DAILY PRN for PRN Review of Systems Constitutional: No fever, sweats or chills Eyes: No diplopia, no worsening or blurred vision ENT: normal hearing, no trouble swallowing Respiratory: No cough, sputum, dyspnea at rest or on exertion Cardiovascular: See HPI, no tightness or palpitations Abdomen: See HPI. No nausea, vomiting, diarrhea or constipation Musculoskeletal: No joint pain, calf pain, swelling Neurologic: No weakness, numbness/tingling, or balance problems Psychiatric: No anxiety or depression Skin: No rash or itch Physical Exam Vital Signs Date Time Temp Pulse Resp B/P (MAP) Pulse Ox O2 Delivery O2 Flow Rate FiO2 01/21/17 09:18 53 18 126/70 100 Room Air 01/21/17 08:26 99 Room Air 01/21/17 08:26 59 18 123/57 99 Room Air 01/21/17 08:26 59 123/57 99 Room Air 01/21/17 08:07 50 18 120/51 01/21/17 07:43 55 01/21/17 07:32 36.7 47 20 89/51 96 Room Air General: awake, alert, no apparent distress Head: Normocephalic, atraumatic ENT: PERRL, EOMI, no pharyngeal exudate, mucous membranes moist Chest: Clear to auscultation, on room air, no adventitious breath sounds Cardiac: Chest wall nontender to palpation, + sinus bradycardia, + holosystolic murmur, no JVD, normal peripheral pulses Abdominal: NABS x 4 quadrants, soft, nontender to palpation, no rebound, guarding or tenderness Extremities: Normal inspection, no peripheral edema or erythema, calfs nontender to palpation Psych: Normal mood and affect Neuro: AAO x 3, strength intact bilaterally and related 5/5, no motor deficits, speech is clear, no peripheral sensory deficits Diagnostics Laboratory Results Results Past 24 Hours Test 01/21/17 07:50 01/21/17 07:55 01/21/17 08:22 Range/Units White Blood Count 5.03 4.8-10.8 K/uL Red Blood Count 3.64 4.7-6.1 M/uL Hemoglobin 11.7 14.0-18.0 g/dL Hematocrit 35.1 42-52 % Mean Corpuscular Volume 96.4 80-100 fL Mean Corpuscular Hemoglobin 32.1 25-34 pg Mean Corpuscular Hemoglobin Concent 33.3 32-36 g/dl Platelet Count 85 130-400 K/uL Neutrophils (%) (Auto) 59.7 % Lymphocytes (%) (Auto) 25.4 % Monocytes (%) (Auto) 8.7 % Eosinophils (%) (Auto) 5.4 % Basophils (%) (Auto) 0.8 % Neutrophils # (Auto) 3.00 1.4-6.5 K/uL Lymphocytes # (Auto) 1.28 1.2-3.4 K/uL Monocytes # (Auto) 0.44 0.11-0.59 K/uL Eosinophils # (Auto) 0.27 0-0.5 K/uL Basophils # (Auto) 0.04 0-0.2 K/uL RDW Standard Deviation 51.4 36.4-46.3 fL RDW Coefficient of Variation 14.6 11.5-14.5 % Immature Granulocyte % (Auto) 0.0 % Immature Granulocyte # (Auto) 0.00 0.00-0.02 K/uL Platelet Estimate DECREASED Red Blood Cell Morphology Unremarkable Prothrombin Time 10.9 9.0-12.0 SECONDS Prothromb Time International Ratio 1.0 0.9-1.1 Activated Partial Thromboplast Time 23.1 21.0-31.0 SECONDS Partial Thromboplastin Ratio 0.9 Sodium Level 142 136-145 mmol/L Potassium Level 3.8 3.5-5.1 mmol/L Chloride Level 108 98-107 mmol/L Carbon Dioxide Level 25 21-32 mmol/L Anion Gap 9.0 17.0 16-25 mmol/L Blood Urea Nitrogen 31 7-18 mg/dl Creatinine 1.40 0.60-1.40 mg/dl Est Creatinine Clear Calc Drug Dose 56.5 ml/min Estimated GFR () 62.0 Estimated GFR (Non- 53.5 BUN/Creatinine Ratio 22.4 10-20 Random Glucose 139 70-99 mg/dl Calcium Level 9.1 8.5-10.1 mg/dl Total Bilirubin 0.6 0.2-1 mg/dl Aspartate Amino Transf (AST/SGOT) 30 15-37 U/L Alanine Aminotransferase (ALT/SGPT) 33 12-78 U/L Alkaline Phosphatase 94 45-117 U/L Total Creatine Kinase 118 39-308 U/L Creatine Kinase MB 3.0 0.5-3.6 ng/ml Creatine Kinase MB Ratio 2.5 0-3.0 Troponin I < 0.015 0-0.045 ng/ml Total Protein 7.2 6.4-8.2 gm/dl Albumin 3.6 3.4-5.0 gm/dl Globulin 3.6 2.5-4.0 gm/dl Albumin/Globulin Ratio 1.0 0.9-2 Bedside Hemoglobin 12.2 14.0-18.0 g/dl Bedside Hematocrit 36 42-52 % Bedside Sodium 142 135-144 mEq/L Bedside Potassium 3.8 3.3-5.0 mEq/L Bedside Chloride 105 101-112 mEq/L Bedside Total CO2 25 24-31 mEq/l Bedside Blood Urea Nitrogen 31 7-18 mg/dl Bedside Creatinine 1.4 0.6-1.3 mg/dl Bedside Glucose (other) 144 70-99 mg/dl Bedside Ionized Calcium (Rogelio) 1.21 1.12-1.32 mmol/l Bedside Troponin I < 0.030 0-0.045 ng/ml Diagnostic Radiology CHEST COMBO ANGIOGRAPHY HISTORY: 61 years-old Male presents with acute chest pain with radiation to the back and abdomen. History of prostatic valve replacement COMPARISON: CT chest 06/25/2015 TECHNIQUE: CT angiogram of the chest was obtained both with and without the use of 94 mL Optiray 320. 3-D coronal and sagittal MIPS were obtained from the axial data set and cemented for review. Additional 3-D rendered images were generated from a separate workstation. A dose lowering technique was used consistent with the principals of [place]. FINDINGS: CTA CHEST: No intramural hematoma identified on the noncontrast scan. There is moderate to extensive atherosclerosis of the thoracic aorta and proximal great vessels. Prior median sternotomy and CABG. [place] coronary arterial calcifications are present. Prosthetic aortic valve is noted. There are annular calcifications of the mitral and aortic valve. Heart is mildly enlarged without pericardial effusion. The thoracic aorta is normal in caliber without aneurysm or dissection. 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 Reflux of contrast into the hepatic veins and IVC is likely secondary to technique. The opacified pulmonary arterial tree is within normal limits. CT CHEST: No dominant thyroid nodule. Mildly prominent likely physiologic right hilar lymph nodes are seen without pathologic adenopathy by CT size criteria. There is no pneumothorax. Small left pleural effusion is present with subsegmental consolidative opacities of the left lung base. There is minimal likely subsegmental atelectasis of the right lung. Central airways are patent with mild bronchial wall thickening of the left lung base. Nonspecific scattered nonenlarged gastrohepatic lymph nodes are seen. There is a small sliding-type hiatal hernia. Soft tissues are unremarkable. Bones are intact. IMPRESSION: 1. No thoracic aortic aneurysm or dissection. 2. Subsegmental consolidative opacities of the left lung base suggest pneumonia with associated small left pleural effusion. 3. Prior median sternotomy and CABG with prosthetic aortic valve. Moderate to extensive atherosclerotic plaquing involves the thoracic aorta and proximal great vessels. The above report was generated using voice recognition software. It may contain grammatical, syntax or spelling errors. Electronically signed by: Wenceslao Perez M.D. 01/21/2017 8:35 AM Dictated Date/Time: 01/21/2017 8:28 AM The status of this report is Signed. ANGIO ABD/PELVIS WITH CONTRAST CLINICAL HISTORY: 61 years-old Male presents with acute chest pain which radiates into the abdomen and back. History of aortic valve replacement and atherosclerotic vascular disease. COMPARISON STUDY: CTA chest of same day, CT abdomen and pelvis 04/29/2016. TECHNIQUE: Following the IV administration of 94 cc of Optiray 320, CT angiogram of the abdomen and pelvis was performed from the lung bases the proximal femora. Images are reviewed in the axial, sagittal, and coronal planes. 3-D MIPS images are created and assessed. IV contrast was administered without complication. A dose lowering technique was utilized adhering to the principles of ALARA. FINDINGS: CTA ABDOMEN AND PELVIS: Extensive atherosclerotic plaquing of the abdominal aorta and iliac vasculature is noted without aortic dissection or aneurysm. The celiac trunk, superior and inferior mesenteric arteries and iliac arteries are patent. Plaquing at the origin of the renal arteries, right greater than left appears to cause at least 50% stenosis. Atherosclerotic plaquing at the origins of the celiac trunk and superior mesenteric artery are nicely seen on image 40 of the sagittal MIPS series, with approximately 80% stenosis of the celiac trunk and 90% stenosis of the SMA. No filling defects are seen within the mesenteric vasculature. CT ABDOMEN/PELVIS: Small left pleural effusion is noted with subsegmental consolidative left basilar opacities, better evaluated on CT chest of same day. No pneumoperitoneum. Gallstones are seen layering within the gallbladder lumen. No CT evidence of acute cholecystitis. Liver, pancreas and adrenal glands are within normal limits. Spleen is mildly enlarged, 15 cm. There is mild to moderate right renal atrophy with probable cyst of the inferior pole, 4 mm. Left kidney is unremarkable. Ureters are within normal limits. Urinary bladder is partially collapsed. Scattered nonenlarged mesenteric and retroperitoneal lymph nodes are seen without pathologic adenopathy by CT size criteria. These may be reactive and appear unchanged from comparison. Small sliding type hiatal hernia. No bowel obstruction. Scattered noninflamed colonic diverticula are noted. No CT evidence of acute diverticulitis. Decreased caliber involving the descending colon and splenic flexure suggests nondistention without inflammatory stranding. Appendix is normal. Small left fat filled inguinal hernias present. Small fat filled periumbilical hernia is noted, diastases 1.5 cm. There is facet arthrosis of the lower lumbar spine. IMPRESSION: 1. Extensive atherosclerotic plaquing of the abdominal aorta and proximal branch vasculature without dissection or aneurysm. 2. 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 3. Narrowing of the bilateral renal artery origins, right greater than left is noted with moderate right renal atrophy which may be sequela of long-standing renal arterial hypertension. 4. Nonspecific splenomegaly. 5. Cholelithiasis without CT evidence of acute cholecystitis. 6. Colonic diverticulosis without CT evidence of acute diverticulitis. 7. Small sliding-type hiatal hernia. The above report was generated using voice recognition software. It may contain grammatical, syntax or spelling errors. Electronically signed by: Wenceslao Perez M.D. 01/21/2017 8:51 AM Dictated Date/Time: 01/21/2017 8:35 AM The status of this report is Signed. EKG Vent. rate 55 BPM CA interval 144 ms QRS duration 88 ms QT/QTc 436/417 ms P-R-T axes 46 68 16 Sinus bradycardia Otherwise normal ECG When compared with ECG of 30-APR-2016 14:43, Sinus rhythm has replaced Atrial fibrillation Criteria for Septal infarct are no longer Present Impression Assessment and Plan 61 yo M with PMHx of paroxysmal atrial fibrillation, HLD, HTN, CAD status post CABG x 3 and bioprosthetic AVR in 01/2015, GERD, thrombocytopenia secondary to ITP, chronic anemia, and anxiety/depression who presents with acute onset of substernal chest pain this morning. Chest Pain HLD, HTN, CAD status post CABG x 3 and bioprosthetic AVR in 01/2015 - Admit to tele for observation - Most likely cardiac etiology with pt history, will consult cardiology with patient significant cardiac history. At this time chest pain is resolved. - Initial troponin is negative, trending cardiac biomarkers 2 more sets - CT of the chest and abdomen/ pelvis reviewed and are negative for any pulmonary embolism or other acute findings. - 2-D echo ordered - Continue metoprolol 25 mg BID, lisinopril 20 mg daily, aspirin 81 mg QAM, simvastatin 80 mg QHS - Check lipid panel in A1C for completion ITP: - PLT = 85, hgb stable at 11.7 - follows with Dr. Jacob Stacy as well as Dr. Hill Ervin at the [facility]. - Initially bone marrow biopsy and aspiration was performed in December 2011 revealing scattered immature lobed megakaryocytes, but there was no evidence of MDS or other intrinsic bone marrow disease. - his platelet count hovers in the 60,000-70,000 range regularly. - he has never required any form of treatment including corticosteroids or intravenous immunoglobulin. - Patient nothing by mouth except sips and chips for now, if no plans for procedure then will allow heart healthy diet CKG stage III -Creatinine currently 1.4, appears to be stable and around baseline GERD - Continue omeprazole 40 mg daily Anxiety/depression - Continue Lexapro 10 mg daily DVT prophylaxis: Teds, SCDs, no chemical anticoagulation in light of ITP CODE STATUS: Full code Disposition: Patient from home, lives with , no needs anticipated Level of Care Telemetry Advanced Directives Existing Advance Directive: No Existing Living Will: No Existing Power of Sde: No Existing Health Care Proxy: No Resuscitation Status FULL RESUSCITATION
[2017-01-21] MEDS ORDERED: POLYETHYLENE (MIRALAX) 17 GM PACK PO PRN (10:30)
[2017-01-21] MEDS ORDERED: NITROGLYCERIN 0.4 MG SL PER TAB CHARGE SL PRN (10:30)
[2017-01-21] MEDS ORDERED: ONDANSETRON INJ 2 MG/ML 2 ML VIAL IV PRN (10:30)
[2017-01-21] MEDS ORDERED: ACETAMINOPHEN 325 MG TAB PO PRN (10:30)
[2017-01-21 11:00] VITALS: O2SAT 96
[2017-01-21] MEDS: SODIUM CHLORIDE 0.9% 1000ML 1,000 ML IV SCH ×2 (11:42→22:13)
[2017-01-21 11:45] VITALS: BP 137/75; PULSE 56; TEMP 36.6; O2SAT 98
--- NOTE | 2017-01-21 13:11 | ECHOCARDIOGRAM REPORT ---
*NOTICE TO RECEIVING DEMOCRAT AGENCY This information is strictly Confidential and protected under [place] law. [place] law prohibits you from making any further disclosure of this information unless further disclosure is expressly permitted by the written consent of the person to whom it pertains or is authorized by law. A general authorization for the release of medical or other information is not sufficient for this purpose. Hospital accepts no responsibility if the information is made available to any other person, INCLUDING THE PATIENT. Interpretation Summary * Name: BREANNA LOWE Study Date: 01/21/2017 12:04 PM BP: 149/63 mmHg * Patient Location: .2T\S\E221\S\1 HR: 47 * : 1955 (M/d/yyyy) Gender: Male Height: 70 in * Age: 61 yrs Ethnicity: CA Weight: 189 lb * Ordering Physician: Martha Espino * Performed By: Teresa Oquendo * * Reason For Study: CHEST PAIN * BSA: 2.0 m2 * -- Conclusions -- * Left ventricular systolic function is normal. * No regional wall motion abnormalities noted. * Ejection Fraction = 65-70%. * There is mild concentric left ventricular hypertrophy. * There is mild to moderate tricuspid regurgitation. Procedure Details * A complete two-dimensional transthoracic echocardiogram was performed (2D, M-mode, Doppler and color flow Doppler). * A contrast injection of Definity was performed to improve assessment of LV function. * Contrast was injected into an intravenous site in the right arm. * One vial of Definity ultrasound contrast was diluted in normal saline to a total volume of 10 ml. A total of '3' ml of solution was administered during imaging. * Lot # [id number] of Definity utilized for procedure. * Expiration date 03/08. * The attending nurse who injected the contrast agent was PHILLIP KEARNEY RN. Left Ventricle * The left ventricle is normal in size. * There is mild concentric left ventricular hypertrophy. * Ejection Fraction = 65-70%. * Left ventricular systolic function is normal. * No regional wall motion abnormalities noted. Right Ventricle * The right ventricle is not well visualized. * The right ventricular systolic function is reduced as assessed by tricuspid annular plane systolic excursion (TAPSE) (TAPSE <1.6 cm). Atria * The left atrium is mildly dilated. * Right atrium not well visualized. * There is no evidence of atrial septal defect, but resolution does not allow assessment for a patent foramen ovale. Mitral Valve * The mitral valve is grossly normal. * There is moderate mitral annular calcification. * There is no mitral valve stenosis. * Significant mitral regurgitation is absent. Tricuspid Valve * The tricuspid valve is not well visualized, but is grossly normal. * There is no tricuspid stenosis. * There is mild to moderate tricuspid regurgitation. * Right ventricular systolic pressure is normal. Aortic Valve * There is no significant aortic regurgitation. * The prosthetic aortic valve is well-seated. * The gradient is normal for this prosthetic aortic valve. Pulmonic Valve * The pulmonary valve is not well seen, but the Doppler examination is normal without significant regurgitation or stenosis. Great Vessels * The aortic root and proximal ascending aorta are normal sized. * The pulmonary is not well visualized. Pericardium/Pleural * There is no pericardial effusion. Great Vessels * IVC not well visualized. Left Ventricular Diastolic Function * Grade I diastolic dysfunction, (abnormal relaxation pattern). MMode 2D Measurements and Calculations IVSd 1.5 cm IVSs 2.4 cm LVIDd 4.3 cm LVIDs 2.4 cm LVPWd 1.3 cm LVPWs 1.8 cm IVS/LVPW 1.1 FS 43.6 % EDV(Teich) 84.1 ml ESV(Teich) 20.9 ml EF(Teich) 75.1 % EDV(cubed) 80.7 ml ESV(cubed) 14.5 ml EF(cubed) 82.1 % % IVS thick 62.0 % % LVPW thick 36.5 % LV mass(C)d 233.0 grams LV mass(C)dI 114.3 grams/m\S\2 LV mass(C)s 230.3 grams LV mass(C)sI 113.0 grams/m\S\2 CO(Teich) 3.1 l/min CI(Teich) 1.5 l/min/m\S\2 SV(Teich) 63.2 ml SI(Teich) 31.0 ml/m\S\2 CO(cubed) 3.2 l/min CI(cubed) 1.6 l/min/m\S\2 SV(cubed) 66.3 ml SI(cubed) 32.5 ml/m\S\2 ACS 1.1 cm asc Aorta Diam 3.0 cm LVOT diam 1.5 cm LVOT area 1.7 cm\S\2 LVAd ap4 35.8 cm\S\2 LVLd ap4 8.9 cm EDV(MOD-sp4) 119.0 ml LVAs ap4 13.9 cm\S\2 LVLs ap4 6.1 cm ESV(MOD-sp4) 26.8 ml EF(MOD-sp4) 77.5 % LVAd ap2 33.5 cm\S\2 LVLd ap2 7.9 cm EDV(MOD-sp2) 116.0 ml LVAs ap2 13.4 cm\S\2 LVLs ap2 6.3 cm ESV(MOD-sp2) 23.8 ml EF(MOD-sp2) 79.5 % CO(MOD-sp4) 4.5 l/min CI(MOD-sp4) 2.2 l/min/m\S\2 SV(MOD-sp4) 92.2 ml SI(MOD-sp4) 45.2 ml/m\S\2 CO(MOD-sp2) 4.5 l/min CI(MOD-sp2) 2.2 l/min/m\S\2 SV(MOD-sp2) 92.2 ml SI(MOD-sp2) 45.2 ml/m\S\2 Doppler Measurements and Calculations MV E max ellen 114.0 cm/sec MV dec time 0.26 sec Ao V2 max 234.8 cm/sec Ao max PG 22.1 mmHg Ao max PG (full) 14.1 mmHg HAMMAD(V,A) 1.0 cm\S\2 [facility]AM[facility](V,D) 1.0 cm\S\2 LV V1 max PG 8.0 mmHg LV V1 max 141.2 cm/sec MR max ellen 314.9 cm/sec MR max PG 39.7 mmHg PA V2 max 86.3 cm/sec PA max PG 3.0 mmHg TR max ellen 263.3 cm/sec
[2017-01-21] MEDS ORDERED: IV FLUIDS COMPLETED PRN (13:45)
[2017-01-21 16:14] VITALS: BP 111/63; PULSE 54; TEMP 36.9; O2SAT 96
[2017-01-21 19:30] VITALS: BP 137/72; PULSE 59; TEMP 37; O2SAT 96
[2017-01-21] MEDS: METOPROLOL TARTRATE 25 MG TAB PO SCH (20:38)
[2017-01-21] MEDS ORDERED: SIMVASTATIN 80 MG TAB PO SCH (21:00)
[2017-01-21] MEDS ORDERED: ESCITALOPRAM OXALATE 10 MG TAB PO SCH (21:00)
[2017-01-21] MEDS ORDERED: HEPARIN SOD 5000 UNIT/0.5 ML CARP SQ SCH (21:00)
[2017-01-22] VITALS (7 sets, daily range): BP systolic 128–173; BP diastolic 63–86; PULSE 50–55; TEMP 36.4–36.9; O2SAT 94–97
--- NOTE | 2017-01-22 00:19 | CARDIOLOGY CONSULTATION ---
DATE OF CONSULTATION: 01/21/2017 PERTINENT HISTORY: Mr. Ibarra is a 61-year-old white male with known coronary artery disease, who presented to the Emergency Room earlier today with complaints of abdominal, chest and back discomfort. This consultation was ordered to assist in his cardiac management. Of note, the patient follows with Dr. Fransico Villafuerte in the outpatient setting. The patient claims he was in his usual state of health until approximately 6:00 this morning. After the patient had been moving around trays of bread while at work, he realized he had to use the bathroom. While on the toilet and possibly straining, the patient noted severe abdominal discomfort which radiated to his chest and back. He also became diaphoretic and quite concerned. There was no associated shortness of breath, nausea, vomiting or palpitations. The patient explains his boss said he was "very pale." The patient presented to the Emergency Room and his discomfort resolved spontaneously. Total duration of discomfort was approximately 45 minutes. Of note, the patient claims that he had not taken his daily Metamucil nor had a bowel movement in 48 hours. The patient walks his dogs on a daily basis around the track. He has never experienced exertional angina pectoris or limiting dyspnea. He further denies syncope, presyncope, PND, orthopnea and palpitations. The patient does carry a history of coronary artery disease. He underwent a 3-vessel bypass which included an MARY to the LAD, a vein graft to obtuse marginal branch, and a vein graft to the right PDA in 01/2015 at [facility]. He also had placement of a bioprosthetic aortic valve and an ascending thoracic aortic graft. The patient also carries a history of paroxysmal atrial fibrillation. He is not treated with anticoagulant therapy due to his chronic thrombocytopenia. There has been no recent arrhythmia to the best of his knowledge. Currently, the patient is resting comfortably in bed without complaints. PAST MEDICAL HISTORY: 1. Coronary artery disease. 2. CABG x3 -- 01/2015 -- see above. 3. Bioprosthetic aortic valve and aortic graft -- 01/2015. 4. Paroxysmal atrial fibrillation -- no anticoagulation due to thrombocytopenia. 5. Hypertension. 6. Hypercholesterolemia. 7. Chronic renal failure. 8. ITP - with chronic thrombocytopenia. 9. Anemia of chronic disease. 10. GERD. 11. Anxiety/depression. 12. Cholelithiasis. MEDICATIONS: 1. Metoprolol tartrate 25 mg b.i.d. 2. Lisinopril 20 mg per day. 3. Aspirin 81 mg per day. 4. Simvastatin 80 mg at bedtime. 5. Protonix 40 mg per day. 6. Metamucil 1 packet daily. 7. Lexapro 10 mg at bedtime. ALLERGIES: 1. FLUOXETINE -- RASH. 2. TRAMADOL -- RASH. SOCIAL HISTORY: The patient is and lives with his . He works at the [employer]. Quit tobacco use 30 years ago. Does not use alcohol. FAMILY HISTORY: Father at age 87 from emphysema. Mother is alive at 88. REVIEW OF SYSTEMS: A 10-point review of systems was negative except for that described above. PHYSICAL EXAMINATION: GENERAL: This is a well-developed, well-nourished white male in no acute distress. VITAL SIGNS: Blood pressure 149/63 with a regular pulse of 50. Respiratory rate is 16 and the patient is afebrile at 36.7 degrees Celsius. Saturation is 96% on room air. HEENT: Negative. NECK: Supple with full carotid upstrokes. There are no carotid bruits. Jugular venous pressure is flat at 90 degrees. There is no thyromegaly. CARDIOVASCULAR: Reveals a regular rhythm with normal S1 and S2. A 1/6 systolic murmur is heard along the left sternal border. No S3 or S4. LUNGS: Clear without rales, rhonchi or wheezes. ABDOMEN: Soft and nontender without bruits. EXTREMITIES: Reveal intact radial artery pulses bilaterally. Trace pretibial edema is noted. DATA: CBC notes hemoglobin 12.2, hematocrit 36.0, white count 5.0, platelet count 85,000. Electrolytes note sodium of 142, potassium 3.8, chloride 105, bicarbonate 25, BUN 31, creatinine 1.4, glucose 144. [id number] troponin was undetectable at less than 0.03. Laboratory troponin was undetectable at less than 0.015. CK is 118 with an MB fraction of 3.0. EKG notes sinus rhythm with a nonspecific ST-T wave abnormality. CT scan of the chest fails to show dissection. There is moderate plaquing seen throughout the thoracic aorta. 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 Moderate plaquing again noted. IMPRESSION: Mr. Ibarra was admitted with an atypical chest pain syndrome. EKG is unremarkable and 2 early troponin I levels are undetectable. Would continue to trend cardiac enzymes and monitor his symptoms. He will be seen by Dr. Villafuerte tomorrow and further diagnostic workup will be decided at that time. PLAN: 1. Agree with continuation of usual cardiac medications. 2. Trend cardiac enzymes and EKGs. 3. Further recommendations depending on his clinical course. Dr. Villafuerte will assume care tomorrow.
[2017-01-22 06:22] LABS: BASO % 0.7 %; BASO ABS # 0.02 K/uL (0-0.2); COMPLETE YES; EOS % 5.3 %; HEMATOCRIT 31.5 % (42-52); IG% 0.3 %; LYMPH % 26.2 %; LYMPH ABS # 0.79 K/uL (1.2-3.4); MEAN CELL VOLUME 96.3 fL (80-100); MEAN CORPUSCULAR HEMOGLOBIN 31.2 pg (25-34); MEAN CORPUSCULAR HGB CONC 32.4 g/dl (32-36); MONO % 8.3 %; NEUT % 59.2 %; PLATELET COUNT 53 K/uL (130-400); PLT ESTIMATE DECREASED; RED BLOOD COUNT 3.27 M/uL (4.7-6.1); WHITE BLOOD COUNT 3.02 K/uL (4.8-10.8)
[2017-01-22 06:42] LABS: CHOLESTEROL/HDL RATIO 2.4
[2017-01-22] MEDS: METOPROLOL TARTRATE 25 MG TAB PO SCH (07:46)
[2017-01-22] MEDS ORDERED: PSYLLIUM 58.6% PWD PACK S\\F PO SCH (09:00)
[2017-01-22] MEDS ORDERED: LISINOPRIL 20 MG TAB PO SCH (09:00)
[2017-01-22] MEDS ORDERED: ASPIRIN 81 MG ECTAB PO SCH (09:00)
[2017-01-22] MEDS ORDERED: PANTOprazole SOD 40 MG TAB PO SCH (09:00)
--- NOTE | 2017-01-22 09:04 | Progress Note ---
Subjective Date of Service: Jan 22, 2017. Subjective Pt evaluation today including: conversation w/ patient, conversation w/ family , physical exam, chart review, lab review, review of studies, review of inpatient medication list Doing okay, eating breakfast first, no complaining, denied chest pain, denies any sign or bluish, Problem List Medical Problems: (1) Acute kidney injury Status: Acute (2) Chest pain, rule out acute myocardial infarction Status: Acute (3) Chronic ITP (idiopathic thrombocytopenia) Status: Acute (4) Hypotension Status: Acute (5) Substernal chest pain Status: Acute Review of Systems Constitutional: No fever, No chills, No sweats, No weight loss, No weakness, No fatigue, No problem reported Eyes: No worsening of vision, No eye pain, No redness, No discharge, No diplopia ENT: No hearing loss, No unusual epistaxis, No nasal symptoms, No sore throat, No tinnitus, No dental problems, No trouble swallowing Respiratory: No cough, No sputum, No wheezing, No shortness of breath, No dyspnea on exertion, No dyspnea at rest, No hemoptysis Cardiac: No chest pain, No orthopnea, No PND, No edema, No claudication, No palpitations Abdomen: No pain, No nausea, No vomiting, No diarrhea, No constipation Musculoskeletal: No joint pain, No muscle pain, No swelling, No calf pain Male : No dysuria, No urinary frequency, No incontinence, No nocturia more than once/night, No slowing stream, No hematuria Neurologic: No memory loss, No paralysis, No weakness, No numbness/tingling, No vertigo, No balance problems Psychiatric: No depression symptoms, No anhedonism, No anxiety, No insomnia, No substance abuse Heme: No abnormal bleeding/bruising, No clotting problems, No swollen lymph nodes, No night sweats Endo: No fatigue, No excessive thirst, No excessive urination Skin: No rash, No itch, No new/changing skin lesions, No color change, No bleeding Objective Vital Signs Date Time Temp Pulse Resp B/P (MAP) Pulse Ox O2 Delivery O2 Flow Rate FiO2 01/22/17 07:49 50 01/22/17 07:18 36.7 55 18 156/63 (94) 96 Room Air 01/22/17 04:00 36.6 50 17 139/86 (103) 97 Room Air 01/22/17 04:00 Room Air 01/22/17 00:00 36.8 51 17 128/66 (86) 94 Room Air 01/21/17 23:59 Room Air 01/21/17 20:00 Room Air 01/21/17 19:30 37.0 59 22 137/72 (93) 96 Room Air 01/21/17 16:14 36.9 54 22 111/63 (79) 96 Room Air 01/21/17 16:00 Room Air 01/21/17 12:00 Room Air 01/21/17 11:45 36.6 56 17 137/75 (95) 98 Room Air 01/21/17 11:00 47 16 149/63 96 Room Air 01/21/17 10:50 47 01/21/17 10:34 58 16 132/59 98 Room Air 01/21/17 09:40 100 Room Air 01/21/17 09:18 53 18 126/70 100 Room Air Physical Exam General Appearance: WD/WN, no apparent distress Eyes: normal inspection, PERRL, EOMI, sclerae normal ENT: normal ENT inspection, hearing grossly normal, pharynx normal Neck: supple, no adenopathy, thyroid normal, no JVD, no carotid bruits, trachea midline Respiratory/Chest: chest non-tender, lungs clear, normal breath sounds, no respiratory distress, no accessory muscle use, + decreased breath sounds Cardiovascular: regular rate, rhythm, no edema, no gallop, no JVD, no murmur, + systolic murmur (4 about 6), + irregularly irregular Abdomen: normal bowel sounds, non tender, soft, no organomegaly, no pulsatile mass Extremities: normal range of motion, non-tender, normal inspection, no pedal edema, no calf tenderness, normal capillary refill, pelvis stable Neurologic/Psychiatric: 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, no motor/sensory deficits, alert, normal mood/affect, oriented x 3 Skin: normal color, warm/dry, no rash Lymphatic: no adenopathy Laboratory Results Last 24 Hours Test 01/21/17 16:02 01/22/17 00:10 01/22/17 05:36 Troponin I < 0.015 ng/ml < 0.015 ng/ml White Blood Count 3.02 K/uL Red Blood Count 3.27 M/uL Hemoglobin 10.2 g/dL Hematocrit 31.5 % Mean Corpuscular Volume 96.3 fL Mean Corpuscular Hemoglobin 31.2 pg Mean Corpuscular Hemoglobin Concent 32.4 g/dl Platelet Count 53 K/uL Neutrophils (%) (Auto) 59.2 % Lymphocytes (%) (Auto) 26.2 % Monocytes (%) (Auto) 8.3 % Eosinophils (%) (Auto) 5.3 % Basophils (%) (Auto) 0.7 % Neutrophils # (Auto) 1.79 K/uL Lymphocytes # (Auto) 0.79 K/uL Monocytes # (Auto) 0.25 K/uL Eosinophils # (Auto) 0.16 K/uL Basophils # (Auto) 0.02 K/uL RDW Standard Deviation 51.8 fL RDW Coefficient of Variation 14.9 % Immature Granulocyte % (Auto) 0.3 % Immature Granulocyte # (Auto) 0.01 K/uL Platelet Estimate DECREASED Triglycerides Level 138 mg/dl Cholesterol Level 93 mg/dl HDL Cholesterol 39 mg/dl LDL Cholesterol, Calculated 26 mg/dl VLDL Cholesterol, Calculated 28 mg/dl Cholesterol/HDL Ratio 2.4 Assessment and Plan 61 yo M admitted on 01/21/2017 because of acute onset of substernal chest pain this morning. PMHx of paroxysmal atrial fibrillation, HLD, HTN, CAD status post CABG x 3 and bioprosthetic AVR in 01/2015, GERD, thrombocytopenia secondary to ITP, chronic anemia, and anxiety/depression Chest Pain, need to rule out ACS HLD, HTN, CAD status post CABG x 3 and bioprosthetic AVR in 01/2015 Continue tele for observation Need to have cardiology input because has a significant cardiac history. Cardiac enzyme troponin has been negative 3 sets - CT of the chest and abdomen/ pelvis reviewed and are negative for any pulmonary embolism or other acute findings. - 2-D echo was done, reported below - Continue metoprolol 25 mg BID, lisinopril 20 mg daily, aspirin 81 mg QAM, simvastatin 80 mg QHS - Checked lipid panel, LDL 26 , has ordered A1C , we will follow-up results - Pending cardiology further nput echo 01/21/2017: per report: Left ventricular systolic function is normal. * No regional wall motion abnormalities noted. * Ejection Fraction = 65-70%. * There is mild concentric left ventricular hypertrophy. * There is mild to moderate tricuspid regurgitation. ITP: - PLT = 85 upon admission, today is 53, significant drop - follows with Dr. Jacob Stacy as well as Dr. Hill Ervin at the [facility], has ordered lab to follow, and consult hematology - Per report Initially bone marrow biopsy and aspiration was performed in December 2011 revealing scattered immature lobed megakaryocytes, but there was no evidence of MDS or other intrinsic bone marrow disease. - his platelet count hovers in the 60,000-70,000 range regularly. - he has never required any form of treatment including corticosteroids or intravenous immunoglobulin. CKG stage III, stable -Creatinine currently 1.4, appears to be stable and around baseline Discussed with patient about the care plan, answered all questions next steps Will pending on cardiology input and hematology input Continued [facility] stay due to: home environment unsafe for pt Discharge planning: home
[2017-01-22] MEDS: SODIUM CHLORIDE 0.9% 1000ML 1,000 ML IV SCH (10:56)
--- NOTE | 2017-01-22 15:12 | Cardiology Follow-Up ---
Subjective Subjective Date of Service: Jan 22, 2017. Pt evaluation today including: conversation w/ patient, conversation w/ family , physical exam, chart review, lab review, review of studies, review of inpatient medication list Additional Details: Feeling well. No recurrent chest pain. No other new concerns. Tele reviewed -- no events overnight. Problem List Medical Problems: (1) Acute kidney injury Status: Acute (2) Chest pain, rule out acute myocardial infarction Status: Acute (3) Chronic ITP (idiopathic thrombocytopenia) Status: Acute (4) Hypotension Status: Acute (5) Substernal chest pain Status: Acute Review of Systems Constitutional: No fever, No chills, No sweats, No weight loss, No weakness, No fatigue, No problem reported Eyes: No worsening of vision, No eye pain, No redness, No discharge, No diplopia ENT: No hearing loss, No unusual epistaxis, No nasal symptoms, No sore throat, No tinnitus, No dental problems, No trouble swallowing Respiratory: No cough, No sputum, No wheezing, No shortness of breath, No dyspnea on exertion, No dyspnea at rest, No hemoptysis Cardiac: No chest pain, No orthopnea, No PND, No edema, No claudication, No palpitations Abdomen: No pain, No nausea, No vomiting, No diarrhea, No constipation Musculoskeletal: No joint pain, No muscle pain, No swelling, No calf pain Male : No dysuria, No urinary frequency, No incontinence, No nocturia more than once/night, No slowing stream, No hematuria Neurologic: No memory loss, No paralysis, No weakness, No numbness/tingling, No vertigo, No balance problems Psychiatric: No depression symptoms, No anhedonism, No anxiety, No insomnia, No substance abuse Heme: No abnormal bleeding/bruising, No clotting problems, No swollen lymph nodes, No night sweats Endo: No fatigue, No excessive thirst, No excessive urination Skin: No rash, No itch, No new/changing skin lesions, No color change, No bleeding Objective Vital Signs Last Vital Signs Documentation Date Time Temp Pulse Resp B/P (MAP) Pulse Ox O2 Delivery O2 Flow Rate FiO2 01/22/17 11:31 36.4 55 18 173/72 (105) 97 Room Air Physical Exam: General Appearance: no apparent distress ENT: hearing grossly normal Neck: no JVD Respiratory/Chest: lungs clear, normal breath sounds Cardiovascular: regular rate, rhythm, no edema, + systolic murmur (crisp bioprothestic closure; 2/6 RUBI), + irregularly irregular Abdomen: normal bowel sounds, non tender, soft Extremities: no pedal edema, no calf tenderness Neurologic/Psychiatric: alert, normal mood/affect, oriented x 3 Skin: normal color, warm/dry, no rash Assessment and Plan 1. Chest pain 2. H/o bioprosthetic AVR 3. CAD s/p 3V CABG 4. AF 5. ITP with thrombocytopenia (baseline 40-60K since 2011) Remains chest pain free. Troponins negative. ECG and echocardiogram unremarkable. Suspicion for ACS is low Prior to yesterday had been doing well with no exertional symptoms and concern for progression of stable ischemic heart disease also low. From a cardiac standpoint feel patient safe for discharge. Can follow-up as an outpatient for repeat CBC. Scheduled follow-up with me next month. Continued [facility] stay due to: home environment unsafe for pt Discharge planning: home Medications: Current Inpatient Medications Medications (Trade) Dose Ordered Sig/Brayan Route Start Time Stop Time Status Last Admin Dose Admin Ioversol (Optiray 320) 125 ml UD PRN IV 01/21/17 08:00 01/25/17 07:59 Sodium Chloride 1,000 ml @ 80 mls/hr [id number] IV 01/21/17 10:26 02/20/17 10:25 01/22/17 10:56 80 MLS/HR Acetaminophen (Tylenol Tab) 650 mg Q4H PRN PO 01/21/17 10:30 02/20/17 10:29 Ondansetron HCl (Zofran Inj) 4 mg Q6H PRN IV 01/21/17 10:30 02/20/17 10:29 Nitroglycerin (Nitrostat Tab) 0.4 mg UD PRN SL 01/21/17 10:30 02/20/17 10:29 Aspirin (Ecotrin Tab) 81 mg QAM PO 01/22/17 09:00 02/21/17 08:59 01/22/17 07:47 81 MG Polyethylene (Miralax Powder Packet) 17 gm DAILY PRN PO 01/21/17 10:30 02/20/17 10:29 Escitalopram Oxalate (Lexapro Tab) 10 mg HS PO 01/21/17 21:00 02/20/17 20:59 01/21/17 20:39 10 MG Lisinopril (Zestril Tab) 20 mg QAM PO 01/22/17 09:00 02/21/17 08:59 01/22/17 07:47 20 MG Metoprolol Tartrate (Lopressor Tab) 25 mg BID PO 01/21/17 21:00 02/20/17 20:59 01/21/17 20:38 25 MG Simvastatin (Zocor Tab) 80 mg QPM PO 01/21/17 21:00 02/20/17 20:59 01/21/17 20:39 80 MG Pantoprazole Sodium (Protonix Tab) 40 mg QAM PO 01/22/17 09:00 02/21/17 08:59 01/22/17 07:47 40 MG Psyllium Hydrophilic Mucilloid (Metamucil Powder) 1 pkt QAM PO 01/22/17 09:00 02/21/17 08:59 Miscellaneous (Iv Fluids Completed) 1 ea PRN PRN N/A 01/21/17 13:45 01/21/18 13:44 Lab Results: Test 01/22/17 00:10 01/22/17 05:36 01/22/17 15:03 Troponin I < 0.015 ng/ml (0-0.045) RDW Standard Deviation 51.8 fL (36.4-46.3) RDW Coefficient of Variation 14.9 % (11.5-14.5) Immature Granulocyte % (Auto) 0.3 % White Blood Count 3.02 K/uL (4.8-10.8) Red Blood Count 3.27 M/uL (4.7-6.1) Hemoglobin 10.2 g/dL (14.0-18.0) Hematocrit 31.5 % (42-52) Mean Corpuscular Volume 96.3 fL (80-100) Mean Corpuscular Hemoglobin 31.2 pg (25-34) Mean Corpuscular Hemoglobin Concent 32.4 g/dl (32-36) Platelet Count 53 K/uL (130-400) Neutrophils (%) (Auto) 59.2 % Lymphocytes (%) (Auto) 26.2 % Monocytes (%) (Auto) 8.3 % Eosinophils (%) (Auto) 5.3 % Basophils (%) (Auto) 0.7 % Neutrophils # (Auto) 1.79 K/uL (1.4-6.5) Lymphocytes # (Auto) 0.79 K/uL (1.2-3.4) Monocytes # (Auto) 0.25 K/uL (0.11-0.59) Eosinophils # (Auto) 0.16 K/uL (0-0.5) Basophils # (Auto) 0.02 K/uL (0-0.2) Immature Granulocyte # (Auto) 0.01 K/uL (0.00-0.02) Platelet Estimate DECREASED Triglycerides Level 138 mg/dl (0-150) Cholesterol Level 93 mg/dl (0-200) HDL Cholesterol 39 mg/dl LDL Cholesterol, Calculated 26 mg/dl VLDL Cholesterol, Calculated 28 mg/dl Cholesterol/HDL Ratio 2.4
[2017-01-22 15:59] LABS: HEMATOCRIT 31.3 % (42-52); MEAN CELL VOLUME 95.4 fL (80-100); MEAN CORPUSCULAR HEMOGLOBIN 31.4 pg (25-34); MEAN CORPUSCULAR HGB CONC 32.9 g/dl (32-36); PLATELET COUNT 70 K/uL (130-400); RED BLOOD COUNT 3.28 M/uL (4.7-6.1); WHITE BLOOD COUNT 2.57 K/uL (4.8-10.8)
[2017-01-22 16:00] LABS: GIANT PLATELETS 1+; PLT ESTIMATE DECREASED; POLYCHROMASIA 1+; TEAR DROP CELLS 1+
[2017-01-22 16:01] LABS: BASO ABS # 0.02 K/uL (0-0.2); BASOPHIL % 0.9 % (0-2); EOSINOPHIL % 3.6 %; LYMPH ABS # 0.88 K/uL (1.2-3.4); LYMPHOCYTE % 34.2 %; NEUTROPHILS % 56.8 %
[2017-01-22] MEDS ORDERED: NTRSLP4 SL (16:44)
--- NOTE | 2017-01-22 16:45 | Discharge Instructions ---
Discharge Instructions Date of Service Jan 22, 2017. Admission Reason for Admission: Substernal Chest Pain Discharge Discharge Diagnosis / Problem: acute onset of substernal chest pain, likley atypical chest pain Discharge Goals Goal(s): Decrease discomfort, Improve function, Increase independence, Improve disease control, Improve nutritional status, Learn about illness, Diagnostic testing, Therapeutic intervention, Prevent Disease Progression, Specific goals Activity Recommendations Activity Limitations: resume your previous activity . Instructions / Follow-Up Instructions / Follow-Up you have acute onset of substernal chest pain prior to admission you have history of paroxysmal atrial fibrillation, HLD, HTN, CAD status post CABG x 3 and bioprosthetic AVR in 01/2015, you need to follow up with your health and safety inspector as instructed you have thrombocytopenia secondary to ITP, you need to follow up with your bleach liquor maker in 1 week, repeat labs - you need to follow up with your primary care physician in 1 week, - take medication as instructed, never overdose or any misuse, or take with alcohol, because misuse of medicine may cause organ damage or , call your primary care physician if have questions of medicaitons. - call your primary care physician OR go to local emergency room if has any fever/chill, chest pain, shortness of breathing, nausea/vomiting/abdominal pain , facial droop/slurry speech/local weakness, or if has any questions. - fall precaution - diet as instructed - you need to follow up with your subspecialist - you should understand that it is important to follow up the above instruction , and "not following the above instruction" may cause delayed or missed care of your medical conditions which may cause permanent organ damage and even . Current Hospital Diet Patient's current hospital diet: AHA Diet (Heart Healthy) Discharge Diet Recommended Diet: AHA Diet (Heart Healthy) Procedures Procedures Performed: no Pending Studies Studies pending at discharge: no Laboratory Results Hemoglobin A1c Test 01/22/17 05:36 Range/Units Lipid Panel Test 01/22/17 05:36 Range/Units Triglycerides Level 138 0-150 mg/dl Cholesterol Level 93 0-200 mg/dl HDL Cholesterol 39 mg/dl Cholesterol/HDL Ratio 2.4 LDL Cholesterol, Calculated 26 mg/dl Medical Emergencies . Who to Call and When: Medical Emergencies: If at any time you feel your situation is an emergency, please call 911 immediately. . Non-Emergent Contact Non-Emergency issues call your: Primary Care Provider, Sales Coordinator, Oncologist . . "Provider Documentation" section prepared by Moreno Reddy. . VTE Core Measure Inpt VTE Proph given/why not?: Unfractionated heparin SQ
--- NOTE | 2017-01-22 18:34 | Discharge Summary ---
Discharge Summary Date of Service Jan 22, 2017. Discharge Summary Admission Date: Jan 21, 2017 at 10:31 Discharge Date: Jan 22, 2017 Principal Diagnosis: atypical chest pain Problems/Secondary Diagnoses: history of paroxysmal atrial fibrillation, HLD, HTN, CAD status post CABG x 3 and bioprosthetic AVR in 01/2015, thrombocytopenia secondary to ITP Procedures: no Consultations: cardio Medication Reconciliation New Medications: Nitroglycerin (Nitrostat) 0.4 Mg/1 Tab Subl 0.4 MG SL UD PRN for Chest Pain for 30 Days Continued Medications: Aspirin (Aspirin Chewable) 81 Mg Chew 81 MG PO QAM Escitalopram (Lexapro) 10 Mg Tab 10 MG PO HS, TAB Lisinopril (Prinivil) 20 Mg Tab 20 MG PO QAM, TAB Metoprolol Tartrate (Lopressor) (Lopressor) 25 Mg Tab 25 MG PO BID, TAB Omeprazole (Prilosec) 40 Mg Cap 40 MG PO QAM, CAP Psyllium (Metamucil) 48.57 % Pow 1 DOSE PO DAILY PRN for PRN Simvastatin (Zocor) 80 Mg Tab 80 MG PO QPM, TAB Discharge Exam see today's note Review of Systems: Constitutional: + problem reported (see today's note) Physical Exam: General Appearance: + pertinent finding (see today's note) Hospital Course 61 yo M admitted on 01/21/2017 because of acute onset of substernal chest pain this morning. PMHx of paroxysmal atrial fibrillation, HLD, HTN, CAD status post CABG x 3 and bioprosthetic AVR in 01/2015, GERD, thrombocytopenia secondary to ITP, chronic anemia, and anxiety/depression Chest Pain, need to rule out ACS HLD, HTN, CAD status post CABG x 3 and bioprosthetic AVR in 01/2015 Continue tele for observation Cardiac enzyme troponin has been negative 3 sets - CT of the chest and abdomen/ pelvis reviewed and are negative for any pulmonary embolism or other acute findings. - 2-D echo was done, reported below - Continue metoprolol 25 mg BID, lisinopril 20 mg daily, aspirin 81 mg QAM, simvastatin 80 mg QHS - Checked lipid panel, LDL 26 , has ordered A1C , we will follow-up results operations architect saw patient, feel is very low probability has acs and recs to discharge patient home , with out patient follow up echo 01/21/2017: per report: Left ventricular systolic function is normal. * No regional wall motion abnormalities noted. * Ejection Fraction = 65-70%. * There is mild concentric left ventricular hypertrophy. * There is mild to moderate tricuspid regurgitation. ITP: - PLT = 85 upon admission, today is 53, significant drop - follows with Dr. Jacob Stacy as well as Dr. Hill Ervin at the [facility], has ordered lab to follow, which is better, advised patient to follow up with customer support agent, cancelled consult hematology - Per report Initially bone marrow biopsy and aspiration was performed in December 2011 revealing scattered immature lobed megakaryocytes, but there was no evidence of MDS or other intrinsic bone marrow disease. - his platelet count hovers in the 60,000-70,000 range regularly. - he has never required any form of treatment including corticosteroids or intravenous immunoglobulin. CKG stage III, stable -Creatinine currently 1.4, appears to be stable and around baseline Discussed with patient about the care plan, answered all questions Instructions / Follow-Up you have acute onset of substernal chest pain prior to admission you have history of paroxysmal atrial fibrillation, HLD, HTN, CAD status post CABG x 3 and bioprosthetic AVR in 01/2015, you need to follow up with your operations architect as instructed you have thrombocytopenia secondary to ITP, you need to follow up with your customer support agent in 1 week, repeat labs - you need to follow up with your primary care physician in 1 week, - take medication as instructed, never overdose or any misuse, or take with alcohol, because misuse of medicine may cause organ damage or , call your primary care physician if have questions of medicaitons. - call your primary care physician OR go to local emergency room if has any fever/chill, chest pain, shortness of breathing, nausea/vomiting/abdominal pain , facial droop/slurry speech/local weakness, or if has any questions. - fall precaution - diet as instructed - you need to follow up with your subspecialist - you should understand that it is important to follow up the above instruction , and "not following the above instruction" may cause delayed or missed care of your medical conditions which may cause permanent organ damage and even . Total Time Spent: Less than 30 minutes This includes examination of the patient, discharge planning, medication reconciliation, and communication with other providers. Discharge Instructions Please refer to the electronic Patient Visit Report (Discharge Instructions) for additional information. Additional Copies To Fransico Villafuerte MD; Jacob Stacy MD; Hill Daniels M.D.
[2017-01-23 06:39] LABS: ESTIMATED AVERAGE GLUCOSE 103 mg/dl; HA1C FLAG Normal (Normal)
[2017-01-24 11:23] LABS: COMPLETE YES
== END 2017-01-22 17:57 | disposition home or self-care (01) ==
LOC: C.EDB 07:32 → C.2T 10:31 → ENRESERV 10:52
PROVIDERS: ADMIT Hospitalist; ATTEND Hospitalist
DX: R07.89 Other chest pain (principal); I95.9 Hypotension, unspecified; D69.3 Immune thrombocytopenic purpura; I48.0 Paroxysmal atrial fibrillation; K21.9 Gastro-esophageal reflux disease without esophagitis; E78.5 Hyperlipidemia, unspecified; N18.3 Chronic kidney disease, stage 3 (moderate); I12.9 Hypertensive chronic kidney disease with stage 1 through stage 4 chronic kidney disease, or unspecified chronic kidney disease; F41.8 Other specified anxiety disorders; I25.10 Atherosclerotic heart disease of native coronary artery without angina pectoris; Z83.3 Family history of diabetes mellitus; Z82.49 Family history of ischemic heart disease and other diseases of the circulatory system; Z83.6 Family history of other diseases of the respiratory system; Z87.891 Personal history of nicotine dependence; Z79.82 Long term (current) use of aspirin; Z95.1 Presence of aortocoronary bypass graft; Z95.2 Presence of prosthetic heart valve; Z79.899 Other long term (current) drug therapy

== ENCOUNTER → 2017-05-03 | Outpatient (CLI) | payer BC ==
[~2017-05-03] MED LIST changes: +NTRSLP4 SL
[2017-05-03 12:34] LABS: ALT/SGPT 52 U/L (12-78); AST/SGOT 41 U/L (15-37); BLOOD UREA NITROGEN 25 mg/dl (7-18); BUN/CREATININE RATIO 20.3 (10-20); CALCIUM 8.6 mg/dl (8.5-10.1); CARBON DIOXIDE 23 mmol/L (21-32); CHLORIDE 108 mmol/L (98-107); CREATININE 1.24 mg/dl (0.60-1.40); GLUCOSE 105 mg/dl (70-99); POTASSIUM 3.8 mmol/L (3.5-5.1); SODIUM 139 mmol/L (136-145)
[2017-05-03 12:58] LABS: PROSTATE SPECIFIC ANTIGEN 0.014 ng/ml (0.000-4.000)
== END | disposition home or self-care (01) ==
LOC: C.LABMFLN 08:03
PROVIDERS: ATTEND Internal Medicine
DX: E78.5 Hyperlipidemia, unspecified (principal); I10 Essential (primary) hypertension; Z12.5 Encounter for screening for malignant neoplasm of prostate

== ENCOUNTER → 2017-06-08 | Outpatient (CLI) | payer BC ==
[2017-06-08 18:13] LABS: BLOOD UREA NITROGEN 30 mg/dl (7-18); CREATININE 1.57 mg/dl (0.60-1.40)
== END | disposition home or self-care (01) ==
LOC: C.LABMFLN 15:23
PROVIDERS: ATTEND Psychiatry & Neurology Neurology
DX: H53.2 Diplopia (principal); Z00.00 Encounter for general adult medical examination without abnormal findings

== ENCOUNTER → 2017-06-13 | Outpatient (CLI) | payer BC ==
[~2017-06-13] MED LIST changes: +GADAVIST IV PRN
--- NOTE | 2017-06-13 08:52 | DIAGNOSTIC IMAGING REPORT ---
MRI OF THE BRAIN COMBO CLINICAL HISTORY: Ptosis. Headache. Diplopia. COMPARISON STUDY: No priors. TECHNIQUE: MRI of the brain was performed utilizing various T1 and T2-weighted sequences in the axial, sagittal, and coronal planes. Contrast-enhanced sequences were acquired following the administration of 8.5 cc of Gadavist. FINDINGS: Brain parenchyma: There is mild patchy subcortical and periventricular microangiopathic disease. A tiny chronic lacunar infarct is seen in the right basal ganglia. There is no hemorrhage or mass effect. There is no restricted diffusion to suggest acute ischemia. No enhancing mass lesion is identified on the postcontrast images. Robles-white matter differentiation is preserved. No extra-axial fluid collection is seen. The cerebellar tonsils are normal in configuration. Ventricles, sulci, and cisterns: Normal in configuration. Pituitary and sella: Unremarkable. Intracranial vasculature: Normal flow voids are maintained at the skull base. Orbits: The bony orbits are grossly intact. Orbital contents are normal in appearance. Sinuses and mastoids: The paranasal sinuses are clear. There is a left mastoid effusion. The right mastoid air cells are clear. Calvarium: Unremarkable. Cervical cord: Partially visualized cervical spinal cord is normal in morphology and signal intensity. IMPRESSION: 1. No acute intracranial abnormality. 2. Mild microangiopathic disease as above. Electronically signed by: Raphael Reed M.D. 06/13/2017 8:51 AM Dictated Date/Time: 06/13/2017 8:48 AM
== END | disposition home or self-care (01) ==
LOC: C.MRI 07:30
PROVIDERS: ATTEND Psychiatry & Neurology Neurology
DX: H53.2 Diplopia (principal); R51 Headache; H02.401 Unspecified ptosis of right eyelid

== ENCOUNTER → 2017-08-03 | Outpatient (CLI) | payer BC ==
[~2017-08-03] MED LIST changes: -GADAVIST IV PRN
[2017-08-03 18:26] LABS: BLOOD UREA NITROGEN 26 mg/dl (7-18); CREATININE 1.33 mg/dl (0.60-1.40)
== END | disposition home or self-care (01) ==
LOC: C.LABMFLN 15:14
PROVIDERS: ATTEND Psychiatry & Neurology Neurology
DX: N28.9 Disorder of kidney and ureter, unspecified (principal)

== ENCOUNTER → 2017-08-16 | Outpatient (CLI) | payer BC ==
[~2017-08-16] MED LIST changes: +GADAVIST IV PRN
--- NOTE | 2017-08-16 08:09 | DIAGNOSTIC IMAGING REPORT ---
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 There is moderate artifact from midline sternotomy sutures. Prevascular lymph nodes remain at the upper limits of normal in size. There are no mediastinal masses suspicious for a thymoma, given the limitations of the anterior mediastinal artifact induced by the midline sternotomy clips. Slight infiltration of the anterior mediastinal fat, remain similar to the prior CT scan. This is not masslike, and is likely postsurgical There is a trace right pleural effusion and small left pleural effusion. There is no evidence of thoracic aortic dilatation. There are stable parenchymal opacities at the left lung base, likely atelectatic. IMPRESSION: 1. Anterior mediastinal artifact secondary to midline sternotomy roger 2. No MRI evidence of a thymoma 3. Trace right pleural effusion and small left pleural effusion 4. Left lower lobe parenchymal opacities, likely atelectatic 5. Stable prevascular lymph nodes at the upper limits of normal in size 6. Mild infiltration of the anterior mediastinal fat, unchanged from the prior study and likely related to prior surgery Electronically signed by: Kevin Vargas M.D. 08/16/2017 8:07 AM Dictated Date/Time: 08/16/2017 8:00 AM
== END | disposition home or self-care (01) ==
LOC: C.MRIBC 06:47
PROVIDERS: ATTEND Psychiatry & Neurology Neurology
DX: G70.00 Myasthenia gravis without (acute) exacerbation (principal)

== ENCOUNTER → 2018-01-03 | Outpatient (CLI) | payer BC ==
[~2018-01-03] MED LIST changes: -GADAVIST IV PRN
--- NOTE | 2018-01-03 10:33 | DIAGNOSTIC IMAGING REPORT ---
L FOOT MIN 3 VIEWS ROUTINE CLINICAL HISTORY: 62 years-old Male presenting with M79.672 Acute foot pain, left. TECHNIQUE: Frontal, oblique, and lateral views of the left foot were obtained. COMPARISON: None. FINDINGS: Incidental note made of a bipartite and medial sesamoid at the level of the first metatarsal head. No acute fracture or malalignment. No advanced degenerative change. No radiographic soft tissue abnormality. IMPRESSION: No acute osseous injury. Electronically signed by: Lincoln Rehman M.D. 01/03/2018 10:31 AM Dictated Date/Time: 01/03/2018 10:30 AM
== END | disposition home or self-care (01) ==
LOC: C.RAD1850 09:36
PROVIDERS: ATTEND Physician Assistant
DX: M79.672 Pain in left foot (principal)

== ENCOUNTER 2021-12-08 12:41 | Inpatient (IN) ==
--- NOTE | 2021-12-08 13:25 | Emergency Department Note ---
Impression & Plan Fall, Weak, Acute anemia, Low back pain, Closed fracture of transverse process of lumbar vertebra ED Provider Note Provider: Chip Jacob MD DATE OF SERVICE: 12/08/2021 CHIEF COMPLAINT: Fall, weak HISTORY OF PRESENT ILLNESS: Patient is a 66-year-old with a history of hypertension, CKD, CAD, and atrial fibrillation on Eliquis with a history of anemia requiring transfusion presenting today states he is feeling weak and a bit dizzy at times. With getting up out of his truck today to walk in his house and felt a farley and lightheaded and then fell on the steps trying to get into his house onto his side. States he has some abrasions but no significant pain over the left elbow and forearm region. Patient states he went and and sat down and rested for an hour or 2 and then had some difficulty making the bathroom due to some back pain as well as feeling weak. Had lunch and was feeling bit better but then contacted his doctors at the cancer center given he felt this seemed a bit similar to when he was anemic for and they referred him here for further evaluation. He denies striking his head. Denies headache or nausea. Denies shortness of breath at this time. Denies feeling dizzy at this time. REVIEW OF SYSTEMS: A total of 10 review of systems was obtained and negative exc ept as stated above in the HPI. PAST MEDICAL HISTORY: As noted above MEDICATIONS: SOCIAL HISTORY: PHYSICAL EXAM: GENERAL: alert and oriented in no acute distress on stretcher Head: normocephalic and atraumatic EYES: No injection, discharge or icterus. NECK: Trachea midline. Supple no posterior midline tenderness. ENT: Mucous membranes pink and moist. LUNGS: Airway patent. No retractions. Breath sounds clear HEART: Irregular rate and rhythm. No chest wall tenderness ABDOMEN: Soft and non-tender, without guarding or rebound. BACK: Some slight midline to left lumbar tenderness with an area of contusion here in the low back. No step-offs. SKIN: Acyanotic, warm, dry, without rashes, slightly pale EXTREMITIES: Without swelling, tenderness or deformity NEUROLOGICAL: No focal deficits. No aphasia. No facial droop or slurred speech. Normal strength and tone in the extremities. Sensation to gross touch normal EK bpm atrial fibrillation without acute ST segment elevation with some inferior lateral ST depression and a QTC of 437. Compared to previous from October 04, 2020 similar. CONTINUOUS CARDIAC MONITORING: was ordered and showed a heart rate of 50s-70s bpm in atrial fibrillation PDMP was checked without noted issue. GCS 15. Patient's laboratory studies and imaging reviewed. Differential includes Infection, dehydration, metabolic abnormality, hypo/hyperglycemia, electrolyte disturbance, anemia, hypoxia, cardiac sources, intracerebral event, toxicologic, neurologic, as well as other pathologies. IMPRESSION/MEDICAL DECISION MAKING: Patient with some weakness and suffered a fall this morning. Patient states he has some black stools related to iron usage. Patient states his last transfusion was made with history of anemia and is on Eliquis currently. Complaining of back pain and some bruising to the low back. Denies any numbness in lower extremities. CT the head as well as abdomen pelvis and lumbar spine given the trauma and the use of anticoagulation will be completed. Blood work here does return with significant anemia. Some continued thrombocytopenia is noted. Patient consented for blood and 2 units of blood ordered. Discussed the patient given over the past 3 to 4 weeks he is dropped 4 points of hemoglobin and the need for transfusion given his cardiac history recommend further care here at the hospital. Doubt this represents an upper GI bleed. Troponin not elevated. CT imaging reports reviewed. 2 transverse process fracture lumbar spine noted. No other significant bleeds or findings noted. Discussed with the patient as well as a hospitalist for further care here. Patient declined pain medicine. DIAGNOSIS: Weakness, fall, lower back pain, acute anemia transverse process fractures lumbar spine DISPOSITION: Hospitalist will evaluate Patient was agreeable with this plan. Critical Care I have personally spent 34 minutes of critical care time in the direct management of this patient. This includes bedside care, interpretation of diagnostic studies, and testing, discussion with consultants, patient, and family members, and other required patient management activities. These 34 minutes is in excess of all separately billable procedures. Past Med/Surg History Medical History Anemia HX Anxiety and depression Atrial fibrillation F/U DR MILTON MEDINA CAD (coronary artery disease) Chronic back pain GERD without esophagitis History of anal fissures History of ITP Hyperlipidemia Kidney disease HX MILD Neuropathy Ocular myasthenia gravis Osteoarthritis Plantar fasciitis Surgical History H/O prostate biopsy [facility] History of colonoscopy History of ERCP History of esophagogastroduodenoscopy (EGD) History of herniorrhaphy History of tooth extraction S/P aortic valve replacement with [facility]op[facility] valve 2015 [facility] S/P CABG x 3 2014 [facility] Family History Sister Arthritis Mother Arthritis Cardiac disorder Hypertension Grandfather (Paternal) No problems noted. Grandfather (Maternal) Cancer Father Emphysema lung Brother Cardiac disorder Family/Other Breast cancer Other No family history of adverse response to anesthesia Denies family history of Ovarian cancer Prostate cancer Myocardial infarction Colorectal cancer Social History Smoking Status: Never smoker Second Hand Exposure: Yes ( A CHILD); Hx Alcohol Use: No Hx Substance Use: No Preferred Language: Indian Communication Ability: Effective Visual Impairment: No Limitations Hearing Ability: Normal Executive Assistant Required: No Beliefs That Will Affect Care: None marital status: Current Living Situation: Spouse current occupational status: retired other: Former [employer] employee Feels Safe at Home: Yes Childhood Exposure to Second-Hand Smoke: Yes Dental Care, Regularly: No Physical Activity Frequency: Daily Physical Activity Frequency Comment: 30 min Seatbelt Use: always Sunscreen Use: No Assistive Devices: Denture - Upper, Denture - Lower, Glasses and Hearing Aid - Bilateral Allergies Allergies Allergy/AdvReac Type Severity Reaction Status Date / Time fluoxetine Allergy Intermediate rash Verified 12/08/21 15:27 tramadol Allergy Intermediate RASH Verified 12/08/21 15:27 Home Meds Home Medications Medication Instructions Recorded Confirmed aspirin 81 mg tablet,delayed 81 mg PO QAM 10/04/20 12/08/21 release folic acid 400 mcg tablet 0.4 mg PO QAM 10/04/20 12/08/21 triamcinolone acetonide 0.1 % 1 applic topical BID PRN Skin 10/01/21 12/08/21 topical cream Irritation cholecalciferol (vitamin D3) 50 50 mcg PO QAM 10/04/21 12/08/21 mcg (2,000 unit) capsule pyridostigmine bromide 60 mg tablet See Rx Instructions .Route .COMPLEX 11/05/21 12/08/21 ferrous sulfate 325 mg (65 mg 325 mg PO QAM 11/10/21 12/08/21 iron) tablet,delayed release Previous Rx's Medication Instructions Recorded metoprolol tartrate 50 mg tablet 50 mg PO BID #180 tabs 02/22/21 escitalopram oxalate 10 mg tablet 10 mg PO HS #90 tabs 03/02/21 (Lexapro) fluticasone propionate 50 2 spray intranasal QAM #54 grams 03/22/21 mcg/actuation nasal spray,suspension (Flonase Allergy Relief) apixaban 5 mg tablet (Eliquis) 5 mg PO BID #180 tabs 03/24/21 losartan 50 mg tablet 50 mg PO QAM #90 tabs 05/04/21 simvastatin 40 mg tablet 40 mg PO HS #90 tabs 05/04/21 omeprazole 40 mg capsule,delayed 40 mg PO BID #60 caps 11/15/21 release Results & Data (ED) Vital Signs Vital Signs - 24 hr 12/08/21 12:49 12/08/21 13:31 12/08/21 13:33 Temperature 36.8 C Temperature Source Oral Pulse Rate - Lying Pulse Rate - Sitting Pulse Rate - Standing Pulse Rate 67 Pulse Rate [Right Finger] 58 L Pulse Strength [Right Finger] Normal Respiratory Rate 18 24 Respiratory Effort / Characteristics Non-Labored Non-Labored Spontaneous Respiratory Depth Normal Normal Respiratory Pattern Regular Blood Pressure - Lying Blood Pressure - Sitting Blood Pressure- Standing Blood Pressure 102/64 Blood Pressure [Right Arm] 165/57 H Blood Pressure Mean 76 Blood Pressure Mean [Right Arm] 93 Blood Pressure Position [Right Arm] Lying Pulse Oximetry 98 98 98 Oxygen Delivery Method Room Air Room Air Room Air Sepsis Recent Fever Within 48 Hours No Sepsis New/Unexplained Change in Mental Status No Sepsis Action Taken by Nursing No Action Required 12/08/21 13:35 12/08/21 14:00 12/08/21 15:18 Temperature Temperature Source Pulse Rate - Lying 62 Pulse Rate - Sitting 68 Pulse Rate - Standing 71 Pulse Rate Pulse Rate [Right Finger] 60 64 Pulse Strength [Right Finger] Normal Normal Respiratory Rate 17 17 Respiratory Effort / Characteristics Non-Labored Spontaneous Non-Labored Spontaneous Respiratory Depth Normal Normal Respiratory Pattern Regular Regular Blood Pressure - Lying 125/50 L Blood Pressure - Sitting 106/51 L Blood Pressure- Standing 107/57 L Blood Pressure Blood Pressure [Right Arm] 113/64 115/60 Blood Pressure Mean Blood Pressure Mean [Right Arm] 80 78 Blood Pressure Position [Right Arm] Lying Lying Pulse Oximetry 97 97 Oxygen Delivery Method Room Air Room Air Sepsis Recent Fever Within 48 Hours Sepsis New/Unexplained Change in Mental Status Sepsis Action Taken by Nursing Laboratory Data Result diagrams: 12/08/21 13:08 12/08/21 13:08 Lab Results 12/08/21 12/08/21 12/08/21 Range/Units 13:08 13:08 13:08 WBC 6.52 (4.8-10.8) K/ul RBC 2.10 L (4.63-6.08) M/uL Hgb 6.4 L* (14.0-18.0) g/dl Hct 20.6 L* (40.1-51.0) % MCV 98.1 (80.0-100.0) fL MCH 30.5 (25.0-34.0) pg MCHC 31.1 L (32.0-36.0) g/dL RDW Std Deviation 65.9 H (36.4-46.3) fL RDW Coeff of Juan 18.6 H (11.5-14.5) % Plt Count 78 L (130-400) K/uL Absolute Nucleated RBC 0.05 H (0-0) K/uL Nucleated RBC % (auto) 0.8 % Platelet Estimate Decreased L (Normal) PT 12.4 H (9.0-12.0) Seconds INR 1.2 H (0.9-1.1) APTT 26.3 (21.0-31.0) Seconds PTT Ratio 1.0 Sodium (136-145) mmol/L Potassium (3.5-5.1) mmol/L Chloride (98-107) mmol/L Carbon Dioxide (21-32) mmol/L Anion Gap (3-11) BUN (6-23) mg/dl Creatinine (0.6-1.4) mg/dl Est Cr Clr Drug Dosing ml/min Est GFR ( Amer) ml/min Est GFR (Non-Af Amer) ml/min BUN/Creatinine Ratio (10-20) Glucose (70-99(Fasting)) mg/dl Calcium (8.5-10.1) mg/dl Iron (35-175) mcg/dl TIBC (250-450) mcg/dl Unsaturated IBC (155-355) mcg/dl Transferrin % Sat (20-50) % Ferritin (8-388) ng/ml Total Bilirubin (0.2-1.0) mg/dl AST (13-39) U/L ALT (7-52) U/L Alkaline Phosphatase (34-104) U/L Troponin I High Sens (0-20) pg/ml Total Protein (6.0-8.3) gm/dl Albumin (3.4-5.0) gm/dl Globulin (2.5-4.0) gm/dl Albumin/Globulin Ratio (0.9-2) SARS-CoV-2, RNA, NAAT (NEGATIVE) Blood Type A Positive Antibody Screen NEGATIVE Crossmatch See Detail 12/08/21 12/08/21 12/08/21 Range/Units 13:08 13:08 14:44 WBC (4.8-10.8) K/ul RBC (4.63-6.08) M/uL Hgb (14.0-18.0) g/dl Hct (40.1-51.0) % MCV (80.0-100.0) fL MCH (25.0-34.0) pg MCHC (32.0-36.0) g/dL RDW Std Deviation (36.4-46.3) fL RDW Coeff of Juan (11.5-14.5) % Plt Count (130-400) K/uL Absolute Nucleated RBC (0-0) K/uL Nucleated RBC % (auto) % Platelet Estimate (Normal) PT (9.0-12.0) Seconds INR (0.9-1.1) APTT (21.0-31.0) Seconds PTT Ratio Sodium 136 (136-145) mmol/L Potassium 3.6 (3.5-5.1) mmol/L Chloride 107 (98-107) mmol/L Carbon Dioxide 23 (21-32) mmol/L Anion Gap 6 (3-11) BUN 34 H (6-23) mg/dl Creatinine 1.28 (0.6-1.4) mg/dl Est Cr Clr Drug Dosing 57.8 ml/min Est GFR ( Amer) 66.7 ml/min Est GFR (Non-Af Amer) 57.5 ml/min BUN/Creatinine Ratio 26.6 H (10-20) Glucose 129 H (70-99(Fasting)) mg/dl Calcium 8.5 (8.5-10.1) mg/dl Iron 29 L (35-175) mcg/dl TIBC 333 (250-450) mcg/dl Unsaturated IBC 304 (155-355) mcg/dl Transferrin % Sat 9 L (20-50) % Ferritin 17.9 (8-388) ng/ml Total Bilirubin 0.5 (0.2-1.0) mg/dl AST 22 (13-39) U/L ALT 15 (7-52) U/L Alkaline Phosphatase 67 (34-104) U/L Troponin I High Sens 12.3 (0-20) pg/ml Total Protein 6.5 (6.0-8.3) gm/dl Albumin 3.6 (3.4-5.0) gm/dl Globulin 2.9 (2.5-4.0) gm/dl Albumin/Globulin Ratio 1.2 (0.9-2) SARS-CoV-2, RNA, NAAT NEGATIVE (NEGATIVE) Blood Type Antibody Screen Crossmatch Administered Medications Discontinued Medications Acetaminophen (Acetaminophen 500 Mg Tab) 1,000 mg PO NOW STA Stop: 12/08/21 15:03 Last Admin: 12/08/21 15:19 Dose: 1,000 mg Documented By: CDV Ioversol (Optiray 320 100ml) 95 ml IV ONCE ONE Stop: 12/08/21 14:44 Last Admin: 12/08/21 14:26 Dose: 95 ml Documented By: [facility] Imaging Data Radiologist's Impression: Abdomen/Pelvis CT 12/08/21 13:20 CT SCAN OF THE ABDOMEN AND PELVIS WITH IV CONTRAST; CT SCAN OF THE LUMBAR SPINE WITH IV CONTRAST CLINICAL HISTORY: Dizziness. Fall. Low back pain. COMPARISON STUDY: Abdominal CT dated 10/04/2020. TECHNIQUE: Following the IV administration of 95 cc of Optiray 320, CT scan of the abdomen and pelvis is performed from the lung bases to the proximal femora. Additionally, CT scan of the lumbar spine is performed from the lower thoracic spine to the sacrum. Images for both examinations are reviewed in the axial, sagittal, and coronal planes. IV contrast was administered without complication. A dose lowering technique was utilized adhering to the principles of ALARA. CT DOSE: 1297.07 mGy.cm FINDINGS: Lung bases: The patient is status post midline sternotomy. The heart is enlarged and without pericardial effusion. The coronary arteries are densely calcified. Suspect previous mitral valve surgery. A small hiatal hernia is noted. There is trace left pleural effusion with left basilar scarring/atelectasis. No airspace consolidation is seen typical for pneumonia. Mild intralobular septal thickening is noted at the lung bases. Liver: The contrast-enhanced liver is cirrhotic in morphology and heterogeneous in attenuation. There is hypertrophy of the left lobe and nodularity of the hepatic surface contour. There is no intrahepatic biliary ductal dilatation. The hepatic veins and portal veins are patent. Gallbladder: Surgically absent noting clips in the gallbladder fossa. Spleen: The spleen is enlarged, measuring 16.3 cm in length. Pancreas: Unremarkable. Adrenal glands: Unremarkable. Kidneys: There is asymmetric cortical atrophy of the right kidney as compared to the left. No hydronephrosis is seen. The right kidney enhances heterogeneously. A 14 mm calculus is noted in the right lower pole. No left or a calculi are clearly identified on this contrast-enhanced examination. A 15 mm cyst arises from the lower pole of the right kidney. Abdominal vasculature: The abdominal aorta is normal in course and caliber n oting advanced atherosclerotic calcification. Bowel: There is no bowel obstruction. The appendix is well-visualized and normal. Peritoneum: There is no intraperitoneal free air or abdominal ascites. There is a fat-containing umbilical hernia. Lymphadenopathy: Prominent lymph nodes in the steve hepatis are likely related to chronic liver disease. Pelvic viscera: The prostate gland is diminutive and heterogeneous. The bladder is distended but otherwise normal as imaged. There is a fat-containing left inguinal hernia. Skeletal structures: See below for dedicated discussion of lumbar spine. The bony pelvis and proximal femora appear intact. No lytic or blastic lesions are seen. LUMBAR SPINE: Vertebral body height and alignment are maintained throughout the lumbar spine. There are minimally displaced left transverse process fractures of L3 and L4. The remaining transverse processes and the spinous processes are intact. No additional acute fracture is identified. There is no evidence of spondylolysis. The disc spaces are preserved. The paraspinous soft tissues are within normal limits. IMPRESSION: 1. There is no evidence of solid organ injury in the abdomen or pelvis. 2. There are acute left transverse process fractures of L3 and L4. 3. No additional fracture is identified involving the lumbar spine. 4. Cirrhotic liver morphology and splenomegaly. 5. Cardiomegaly and trace left pleural effusion. Mild intralobular septal thickening at the lung bases could represent acute versus chronic congestive change and clinical correlation will be required. 6. There is asymmetric cortical atrophy of the right kidney as compared to the left, and the right kidney enhances heterogeneously. Correlate with clinical findings and urinalysis. 7. Right-sided nephrolithiasis. 8. Additional findings as above. ACT 112: Negative or not required by law. Electronically signed by: Raphael Reed M.D. 12/08/2021 2:[address] 12/08/21 13:20 CT SCAN OF THE BRAIN WITHOUT IV CONTRAST CLINICAL HISTORY: Dizziness. Fall. COMPARISON STUDY: MRI of the brain dated 06/13/2017. TECHNIQUE: Unenhanced axial CT scan of the brain is performed from the vertex to the skull base. A dose lowering technique was utilized adhering to the principles of ALARA. FINDINGS: Brain parenchyma: There is age-related involutional change noting mild subcortical and periventricular microangiopathic disease. There is no hemorrhage, mass effect, or evidence of acute territorial ischemia by CT criteria. Robles-white matter differentiation is preserved. No extra-axial fluid collection is seen. Mineralization is noted in the basal ganglia. Ventricles, sulci, cisterns: Prominent secondary to involutional change. Intracranial vasculature: There is atherosclerotic calcification of the cavernous carotid and vertebral arteries. Calvarium: No depressed calvarial fracture is identified. Sinuses and mastoids: The visualized paranasal sinuses are clear. There is a left mastoid effusion. The right mastoid air cells are well pneumatized. Orbits: The bony orbits are grossly intact. IMPRESSION: There is no hemorrhage, mass effect, or evidence of acute territorial ischemia by CT criteria. ACT 112: Negative or not required by law. Electronically signed by: Raphael Reed M.D. 12/08/2021 2:[address] 12/08/21 13:20 CT SCAN OF THE ABDOMEN AND PELVIS WITH IV CONTRAST; CT SCAN OF THE LUMBAR SPINE WITH IV CONTRAST CLINICAL HISTORY: Dizziness. Fall. Low back pain. COMPARISON STUDY: Abdominal CT dated 10/04/2020. TECHNIQUE: Following the IV administration of 95 cc of Optiray 320, CT scan of the abdomen and pelvis is performed from the lung bases to the proximal femora. Additionally, CT scan of the lumbar spine is performed from the lower thoracic spine to the sacrum. Images for both examinations are reviewed in the axial, sagittal, and coronal planes. IV contrast was administered without complication. A dose lowering technique was utilized adhering to the principles of ALARA. CT DOSE: 1297.07 mGy.cm FINDINGS: Lung bases: The patient is status post midline sternotomy. The heart is enlarged and without pericardial effusion. The coronary arteries are densely calcified. Suspect previous mitral valve surgery. A small hiatal hernia is noted. There is trace left pleural effusion with left basilar scarring/atelectasis. No airspace consolidation is seen typical for pneumonia. Mild intralobular septal thickening is noted at the lung bases. Liver: The contrast-enhanced liver is cirrhotic in morphology and heterogeneous in attenuation. There is hypertrophy of the left lobe and nodularity of the hepatic surface contour. There is no intrahepatic biliary ductal dilatation. The hepatic veins and portal veins are patent. Gallbladder: Surgically absent noting clips in the gallbladder fossa. Spleen: The spleen is enlarged, measuring 16.3 cm in length. Pancreas: Unremarkable. Adrenal glands: Unremarkable. Kidneys: There is asymmetric cortical atrophy of the right kidney as compared to the left. No hydronephrosis is seen. The right kidney enhances heterogeneously. A 14 mm calculus is noted in the right lower pole. No left or a calculi are clearly identified on this contrast-enhanced examination. A 15 mm cyst arises from the lower pole of the right kidney. Abdominal vasculature: The abdominal aorta is normal in course and caliber noting advanced atherosclerotic calcification. Bowel: There is no bowel obstruction. The appendix is well-visualized and normal. Peritoneum: There is no intraperitoneal free air or abdominal ascites. There is a fat-containing umbilical hernia. Lymphadenopathy: Prominent lymph nodes in the steve hepatis are likely related to chronic liver disease. Pelvic viscera: The prostate gland is diminutive and heterogeneous. The bladder is distended but otherwise normal as imaged. There is a fat-containing left inguinal hernia. Skeletal structures: See below for dedicated discussion of lumbar spine. The bony pelvis and proximal femora appear intact. No lytic or blastic lesions are seen. LUMBAR SPINE: Vertebral body height and alignment are maintained throughout the lumbar spine. There are minimally displaced left transverse process fractures of L3 and L4. The remaining transverse processes and the spinous processes are intact. No additional acute fracture is identified. There is no evidence of spondylolysis. The disc spaces are preserved. The paraspinous soft tissues are within normal limits. IMPRESSION: 1. There is no evidence of solid organ injury in the abdomen or pelvis. 2. There are acute left transverse process fractures of L3 and L4. 3. No additional fracture is identified involving the lumbar spine. 4. Cirrhotic liver morphology and splenomegaly. 5. Cardiomegaly and trace left pleural effusion. Mild intralobular septal thickening at the lung bases could represent acute versus chronic congestive change and clinical correlation will be required. 6. There is asymmetric cortical atrophy of the right kidney as compared to the left, and the right kidney enhances heterogeneously. Correlate with clinical findings and urinalysis. 7. Right-sided nephrolithiasis. 8. Additional findings as above. ACT 112: Negative or not required by law. Electronically signed by: Raphael Reed M.D. 12/08/2021 2:49 PM Chest X-Ray 12/08/21 13:24 XR chest 1V portable CLINICAL HISTORY: fall TECHNIQUE: Single frontal radiograph of the chest was obtained. Comparison: Comparison is made to chest radiograph 10/04/2020 FINDINGS: Median sternotomy wires are unchanged. Cardiomegaly is noted. Atelectasis is noted in the left lung base. No evidence of pleural effusion or pneumothorax. IMPRESSION: No acute chest disease. ACT 112: Negative or not required by law. Electronically signed by: Darren Meade M.D. 12/08/2021 1:49 PM Discharge Plan Visit Data Chief Complaint: Fall Stated Complaint: fall ED Provider: Chip Jacob Discharge Problem: Fall, Weak, Acute anemia, Low back pain, Closed fracture of transverse process of lumbar vertebra Patient Disposition: Being Evaluated by Hospitalist Discharge Instructions Interventions: ED Discharge Assessment Last Done: 12/08/21 17:21
[2021-12-08 13:41] LABS: Hematocrit (blood only) 20.6 % (40.1-51.0); Hemoglobin 6.4 g/dl (14.0-18.0); Mean Corpuscular Hemoglobin 30.5 pg (25.0-34.0); Mean Corpuscular Hgb Conc 31.1 g/dL (32.0-36.0); Mean Corpuscular Volume 98.1 fL (80.0-100.0); Nucleated RBC # (auto) 0.05 K/uL (0-0); Nucleated RBC % (auto) 0.8 %; RDW Coefficient of Variation 18.6 % (11.5-14.5); RDW Standard Deviation 65.9 fL (36.4-46.3); White Blood Count 6.52 K/ul (4.8-10.8)
[2021-12-08 13:49] LABS: INR 1.2 (0.9-1.1); Partial Thromboplastin Time 26.3 Seconds (21.0-31.0); Prothrombin Time 12.4 Seconds (9.0-12.0)
--- NOTE | 2021-12-08 13:51 | XRay Report ---
XR chest 1V portable CLINICAL HISTORY: fall TECHNIQUE: Single frontal radiograph of the chest was obtained. Comparison: Comparison is made to chest radiograph 10/04/2020 FINDINGS: Median sternotomy wires are unchanged. Cardiomegaly is noted. Atelectasis is noted in the left lung b ase. No evidence of pleural effusion or pneumothorax. IMPRESSION: No acute chest disease. ACT 112: Negative or not required by law. Electronically signed by: Darren Meade M.D. 12/08/2021 1:49 PM
[2021-12-08 13:58] LABS: Albumin Globulin Ratio 1.2 (0.9-2); Albumin Level 3.6 gm/dl (3.4-5.0); BUN Creatinine Ratio 26.6 (10-20); Bilirubin,Total 0.5 mg/dl (0.2-1.0); Calcium 8.5 mg/dl (8.5-10.1); Creatinine Clr Calc Pharmacy 57.8 ml/min; Est GFR (African American) 66.7 ml/min; Est GFR (Non-African American) 57.5 ml/min; Globulin 2.9 gm/dl (2.5-4.0); Potassium 3.6 mmol/L (3.5-5.1); Total Protein 6.5 gm/dl (6.0-8.3)
[2021-12-08 14:01] LABS: Troponin I High Sensitivity 12.3 pg/ml (0-20)
[2021-12-08 14:02] LABS: Platelet Count 78 K/uL (130-400)
[2021-12-08] MEDS ORDERED: SODIUM CHLORIDE 0.9% 250 ML IV PRN (14:04)
[2021-12-08 14:05] LABS: Platelet Estimate Decreased (Normal)
--- NOTE | 2021-12-08 14:39 | CT Scan Report ---
CT SCAN OF THE BRAIN WITHOUT IV CONTRAST CLINICAL HISTORY: Dizziness. Fall. COMPARISON STUDY: MRI of the brain dated 06/13/2017. TECHNIQUE: Unenhanced axial CT scan of the brain is performed from the vertex to the skull base. A do se lowering technique was utilized adhering to the principles of ALARA. FINDINGS: Brain parenchyma: There is age-related involutional change noting mild subcortical and periventricula r microangiopathic disease. There is no hemorrhage, mass effect, or evidence of acute territorial isc hemia by CT criteria. Robles-white matter differentiation is preserved. No extra-axial fluid collection is seen. Mineralization is noted in the basal ganglia. Ventricles, sulci, cisterns: Prominent secondary to involutional change. Intracranial vasculature: There is atherosclerotic calcification of the cavernous carotid and vertebr al arteries. Calvarium: No depressed calvarial fracture is identified. Sinuses and mastoids: The visualized paranasal sinuses are clear. There is a left mastoid effusion. T he right mastoid air cells are well pneumatized. Orbits: The bony orbits are grossly intact. IMPRESSION: There is no hemorrhage, mass effect, or evidence of acute territorial ischemia by CT yasmeen rios. ACT 112: Negative or not required by law. Electronically signed by: Raphael Reed M.D. 12/08/2021 2:37 PM
[2021-12-08] MEDS ORDERED: OPTIRAY 320 100ml IV ONE (14:43)
--- NOTE | 2021-12-08 14:51 | CT Scan Report ---
CT SCAN OF THE ABDOMEN AND PELVIS WITH IV CONTRAST; CT SCAN OF THE LUMBAR SPINE WITH IV CONTRAST CLINICAL HISTORY: Dizziness. Fall. Low back pain. COMPARISON STUDY: Abdominal CT dated 10/04/2020. TECHNIQUE: Following the IV administration of 95 cc of Optiray 320, CT scan of the abdomen and pelvi s is performed from the lung bases to the proximal femora. Additionally, CT scan of the lumbar spine is performed from the lower thoracic spine to the sacrum. Images for both examinations are reviewed i n the axial, sagittal, and coronal planes. IV contrast was administered without complication. A dose lowering technique was utilized adhering to the principles of ALARA. CT DOSE: 1297.07 mGy.cm FINDINGS: Lung bases: The patient is status post midline sternotomy. The heart is enlarged and without pericard ial effusion. The coronary arteries are densely calcified. Suspect previous mitral valve surgery. A s mall hiatal hernia is noted. There is trace left pleural effusion with left basilar scarring/atelecta sis. No airspace consolidation is seen typical for pneumonia. Mild intralobular septal thickening is noted at the lung bases. Liver: The contrast-enhanced liver is cirrhotic in morphology and heterogeneous in attenuation. There is hypertrophy of the left lobe and nodularity of the hepatic surface contour. There is no intrahepa tic biliary ductal dilatation. The hepatic veins and portal veins are patent. Gallbladder: Surgically absent noting clips in the gallbladder fossa. Spleen: The spleen is enlarged, measuring 16.3 cm in length. Pancreas: Unremarkable. Adrenal glands: Unremarkable. Kidneys: There is asymmetric cortical atrophy of the right kidney as compared to the left. No hydrone phrosis is seen. The right kidney enhances heterogeneously. A 14 mm calculus is noted in the right lo wer pole. No left or a calculi are clearly identified on this contrast-enhanced examination. A 15 mm cyst arises from the lower pole of the right kidney. Abdominal vasculature: The abdominal aorta is normal in course and caliber noting advanced atheroscle rotic calcification. Bowel: There is no bowel obstruction. The appendix is well-visualized and normal. Peritoneum: There is no intraperitoneal free air or abdominal ascites. There is a fat-containing umbi lical hernia. Lymphadenopathy: Prominent lymph nodes in the steve hepatis are likely related to chronic liver disea se. Pelvic viscera: The prostate gland is diminutive and heterogeneous. The bladder is distended but othe rwise normal as imaged. There is a fat-containing left inguinal hernia. Skeletal structures: See below for dedicated discussion of lumbar spine. The bony pelvis and proximal femora appear intact. No lytic or blastic lesions are seen. LUMBAR SPINE: Vertebral body height and alignment are maintained throughout the lumbar spine. There a re minimally displaced left transverse process fractures of L3 and L4. The remaining transverse proce sses and the spinous processes are intact. No additional acute fracture is identified. There is no ev idence of spondylolysis. The disc spaces are preserved. The paraspinous soft tissues are within osbaldo l limits. IMPRESSION: 1. There is no evidence of solid organ injury in the abdomen or pelvis. 2. There are acute left transverse process fractures of L3 and L4. 3. No additional fracture is identified involving the lumbar spine. 4. Cirrhotic liver morphology and splenomegaly. 5. Cardiomegaly and trace left pleural effusion. Mild intralobular septal thickening at the lung base s could represent acute versus chronic congestive change and clinical correlation will be required. 6. There is asymmetric cortical atrophy of the right kidney as compared to the left, and the right ki dney enhances heterogeneously. Correlate with clinical findings and urinalysis. 7. Right-sided nephrolithiasis. 8. Additional findings as above. ACT 112: Negative or not required by law. Electronically signed by: Raphael Reed M.D. 12/08/2021 2:49 PM
--- NOTE | 2021-12-08 15:01 | History & Physical Report ---
Date of Service December 08, 2021 Assessment & Plan (1) Acute anemia: Plan: Sinan Ibarra is a 66-year-old male with a past medical history of atrial fibrillation on Eliquis with a history of anemia requiring transfusion, CAD, CKD, hypertension who presents with lightheadedness and dizziness when standing from his truck and attempting to walk. Did sustain a fall attempting to walk to his house to his side, did not strike his head. Continue to feel weak through the afternoon, consult the [facility] who were concerned that this was similar to prior anemia and recommended he be seen in the emergency department. Acute on chronic anemia, history of iron deficiency. No clinical bleeding Hemoglobin 6.4 from last 10.1 (11/16/2021) No electrolyte abnormalities Creatinine normal Iron panel pending High-sensitivity troponin normal EGD 11/15/2021: Normal esophagus, gastritis. Recommended to continue PPI twice daily. Normal duodenum Colonoscopy 11/15/2021: Diverticulosis, nonbleeding internal hemorrhoids, no specimens collected. Recommended for 10-year colonoscopy surveillance Patient follows with [facility] and Carmen Wild as outpatient, was pending follow-up bone marrow biopsy next month per patient B12/folate pending Also with paroxysmal A. fib [id number] 3+ at high risk/require anticoagulation given no evidence of acute clinical bleeding, will transfuse with PRBCs, hold DOAC, and if recheck stable with appropriate rise will place on low-dose heparin overnight with trended H&H. If patient experiences continued hemoglobin drop consistent with acute bleeding or does not have appropriate rise hold heparin. History of ITP/pancytopenia with progressively worsening anemia Platelet count as low as 50-80 K, hemoglobin and low nines Has undergone several bone marrow biopsies last 10/2016 without overt features of blasts/dysplastic cells. Flow cytometry unrevealing. Copper level normal, fluorescent in situ hybridization for MDS was negative at the time. Peripheral smear ordered, no additional labs at this time on discussion with [facility] provider - Plt 78, no indication for steroids/xfusion at this time Ocular myasthenia Follows with neurology Recurrent ptosis and double vision when fatigued 2021 acetylcholine receptor antibodies negative, MU SK antibody negative No evidence of thymoma Improved clinically with pyridostigmine 60 mg p.o. 3 times daily with extra half tablet as needed A. fib on anticoagulation, chronic anemia requiring transfusions No signs of active bleeding clinically, recent EGD/[place] unremarkable Undergoing 2 units of transfusion, apixaban held - Rate controlled, continue MTP - In afib at bedside CAD with history of CABG Continue losartan Continue metoprolol, hold for hypotension Continue aspirin, hold if evidence of active acute bleeding as noted Fall due to weakness 2/2 anemia C/B L3/L4 transverse process fracture CXR: No acute findings CT abdomen/pelvis: No solid organ injury appreciated. Left transverse process fracture of L3 and L4. Cirrhotic liver appearance with splenomegaly. Cardiomegaly with trace left pleural effusion. Right cortical atrophy of the kidney. Right-sided nephrolithiasis. CThead: No acute findings Tylenol, lidocaine patch for pain control Liver cirrhosis Appreciated on CT above. Prior imaging 2020 with splenomegaly, steatosis and possible cirrhosis Patient previously refused hepatitis screening Denies alcohol use Lipids, hep C pending DVT prophylaxis: Heparin/NOAC as noted Diet: Heart healthy Disposition: Telemetry CODE STATUS: Full code (2) Low back pain: (3) Iron deficiency anemia: (4) Hypertension: (5) Anxiety disorder: (6) Aortic stenosis: (7) Diastolic heart failure: (8) Thrombocytopenia: (9) Status post coronary artery bypass graft: (10) CAD (coronary artery disease): (11) GERD without esophagitis: (12) Hyperlipidemia: (13) S/P CABG x 3: (14) S/P aortic valve replacement with bioprosthetic valve: (15) Atrial fibrillation: History of Present Illness Primary Care Provider: Hill Daniels MD Sinan Ibarra is a 66-year-old male with a past medical history of atrial fibrillation on Eliquis with a history of anemia requiring transfusion, CAD, CKD, hypertension who presents with lightheadedness and dizziness when standing from his truck and attempting to walk. Did sustain a fall attempting to walk to his house to his side, did not strike his head. Continue to feel weak through the afternoon, consult the cancer care center who were concerned that this was similar to prior anemia and recommended he be seen in the emergency department. No bloody BMS. Recent EGD/[place] Per pt feeling fatigued for a few days. "A had them symptoms like this before my last blood transfusion in October. Dizzy, a little worse when standing and almost falling." Noticed increased lightheadedness and general weakness for ~ 1 week. No bleeding. No chest pain No chest pressure No shortness of breath Last BM this afternoon, dark from iron pills but no blood and no recent change. No abdominal pain, gerd, reflux. Last outpt hematology visit was last month. Sees Carmen Wild. Was pending a followup and repeat testing at the end of this month 'but didn't make it that far.' Talked to [facility] nurse and was recommended to go to ER for ?anemia. Weak & lightheaded. Follows with [facility]. No myesthenia sx w/ pyridostigmine. Low back pain since falling. Medical History: Reviewed Medications: Reviewed Surgical History: Reviewed Allergies: Reviewed Social History: No tobacoc product use, no alcohol use, no MM use Code Status: Surrogate DM would be Pepper Ibarra. Full Code. Allergies Allergy/AdvReac Type Severity Reaction Status Date / Time fluoxetine Allergy Intermediate rash Verified 12/08/21 15:27 tramadol Allergy Intermediate RASH Verified 12/08/21 15:27 Home Medications Medication Instructions Recorded Confirmed Type aspirin 81 mg tablet,delayed 81 mg PO QAM 10/04/20 11/15/21 History release folic acid 400 mcg tablet 0.4 mg PO QAM 10/04/20 11/15/21 History metoprolol tartrate 50 mg tablet 50 mg PO BID #180 tabs 02/22/21 11/15/21 Rx escitalopram oxalate 10 mg tablet 10 mg PO HS #90 tabs 03/02/21 11/15/21 Rx (Lexapro) fluticasone propionate 50 2 spray intranasal QAM #54 grams 03/22/21 11/15/21 Rx mcg/actuation nasal spray,suspension (Flonase Allergy Relief) apixaban 5 mg tablet (Eliquis) 5 mg PO BID #180 tabs 03/24/21 11/15/21 Rx losartan 50 mg tablet 50 mg PO QAM #90 tabs 05/04/21 11/15/21 Rx simvastatin 40 mg tablet 40 mg PO HS #90 tabs 05/04/21 11/15/21 Rx triamcinolone acetonide 0.1 % 1 applic topical BID PRN Skin 10/01/21 11/15/21 History topical cream Irritation cholecalciferol (vitamin D3) 50 50 mcg PO QAM 10/04/21 11/15/21 History mcg (2,000 unit) capsule pyridostigmine bromide 60 mg tablet 60 mg PO DIRECTED 11/05/21 11/15/21 History ferrous sulfate 325 mg (65 mg 325 mg PO QAM 11/10/21 11/15/21 History iron) tablet,delayed release omeprazole 40 mg capsule,delayed 40 mg PO BID #60 caps 11/15/21 Rx release Past Med/Surg History Medical History Anemia HX Anxiety and depression Atrial fibrillation F/U DR MILTON MEDINA CAD (coronary artery disease) Chronic back pain GERD without esophagitis History of anal fissures History of ITP Hyperlipidemia Kidney disease HX MILD Neuropathy Ocular myasthenia gravis Osteoarthritis Plantar fasciitis Surgical History H/O prostate biopsy History of cholecystectomy 11/24/20/[place] History of colonoscopy History of ERCP History of esophagogastroduodenoscopy (EGD) History of herniorrhaphy History of tooth extraction S/P aortic valve replacement with bioprosthetic valve 2014 AT [place] S/P CABG x 3 2014 AT [place] Family History Sister Arthritis Mother Arthritis Cardiac disorder Hypertension Grandfather (Paternal) No problems noted. Grandfather (Maternal) Cancer Father Emphysema lung Brother Cardiac disorder Family/Other Breast cancer Other No family history of adverse response to anesthesia Denies family history of Ovarian cancer Prostate cancer Myocardial infarction Colorectal cancer Social History Smoking Status: Never smoker Second Hand Exposure: Yes ( A CHILD); Hx Alcohol Use: No Hx Substance Use: No Preferred Language: Luxembourgish Communication Ability: Effective Visual Impairment: No Limitations Hearing Ability: Normal Bleach Range Operator Required: No Beliefs That Will Affect Care: None marital status: Current Living Situation: Spouse current occupational status: retired other: Former [employer] employee Feels Safe at Home: Yes Childhood Exposure to Second-Hand Smoke: Yes Dental Care, Regularly: No Physical Activity Frequency: Daily Physical Activity Frequency Comment: 30 min Seatbelt Use: always Sunscreen Use: No Assistive Devices: Denture - Upper, Denture - Lower, Glasses and Hearing Aid - Bilateral Review of Systems Review of Systems: All systems reviewed & are unremarkable except as noted in Subjective Physical Exam Physical Exam: General: A&Ox3. NAD. Cooperative. +pallor HEENT: Atraumatic, normocephalic. Vision grossly intact, hearing grossly intact. ON sustained upward gave minimal L eye ptosis, pt reports more trouble with R eye when sleepy. Pulm: CTAB A&P. -wheezes, -rales, -rhonchi. Symmetrical chest rise. No increased work of breathing. No respiratory distress. Cardiac: irir, +sm Radial pulses intact and symmetrical. Abdominal: Nontender, nondistended, soft. BS present. Sensation to soft touch in ankles intact bilat. Ankle dorsi/plantarflexion 5/5. Hip flexion limited by pain in low back. No saddle anesthesia.x Results & Data Results & Data ([facility]) Vital Signs (Past 12 Hours) Vital Signs Temp Pulse Pulse Resp BP BP Pulse Ox 12/08/21 14:00 60 17 113/64 97 12/08/21 13:33 58 L 24 165/57 H 98 12/08/21 13:31 98 12/08/21 12:49 36.8 C 67 18 102/64 98 O2 Del Method 12/08/21 14:00 Room Air 12/08/21 13:33 Room Air 12/08/21 13:31 Room Air 12/08/21 12:49 Room Air PG Care Time/CCT Total # of Minutes Spent Total Time Spent with Patient: Total time spent is greater than 50% in coordination of care (as documented) at patient's floor/unit and/or counseling patient: Coding Level of Care Code 41109 Initial Inpt Care Lvl 3 Diagnoses Acute anemia D64.9 Low back pain M54.50 Iron deficiency anemia D50.9 Hypertension I10 Anxiety disorder F41.9 Aortic stenosis I35.0 Diastolic heart failure I50.30 Thrombocytopenia D69.6 Status post coronary artery bypass graft Z95.1 CAD (coronary artery disease) I25.10 GERD without esophagitis K21.9 Hyperlipidemia E78.5 S/P CABG x 3 Z95.1 S/P aortic valve replacement with bioprosthetic valve Z95.3 Atrial fibrillation I48.0 Atrial fibrillation type: paroxysmal (1) Atrial fibrillation Atrial fibrillation type: paroxysmal Qualified Code(s): I48.0 - Paroxysmal atrial fibrillation
[2021-12-08] MEDS ORDERED: ACETAMINOPHEN 500 MG TAB PO STA (15:02)
[2021-12-08 15:21] LABS: Ferritin 17.9 ng/ml (8-388)
--- NOTE | 2021-12-08 16:56 | Electrocardiogram Report ---
Test Reason : Blood Pressure : / mmHG Vent. Rate : 058 BPM Atrial Rate : 051 BPM P-R Int : 000 ms QRS Dur : 098 ms QT Int : 446 ms P-R-T Axes : 000 070 -42 degrees QTc Int : 437 ms Atrial fibrillation with slow ventricular response Abnormal ECG When compared with ECG of 04-OCT-2020 09:48, No significant change was found Confirmed by Hill Walsh ([id number]) on 12/08/2021 4:55:28 PM Referred By: REFERRED SELF Confirmed By:Hill Walsh
[2021-12-08] MEDS ORDERED: ONDANSETRON INJ 2 MG/ML 2 ML VIAL IV PRN (17:13)
[2021-12-08] MEDS ORDERED: FLUTICASONE PROPIONATE NA SPR 16 GM BTL PRN (17:13)
[2021-12-08] MEDS ORDERED: POLYETHYLENE (MIRALAX) 17 GM PACK PO PRN (17:13)
[2021-12-08] MEDS: ACETAMINOPHEN 325 MG TAB PO PRN (20:42)
[2021-12-08] MEDS: LIDOCAINE 5% 1 PATCH TD SCH (20:43)
[2021-12-08] MEDS: HEPARIN SODIUM/DEXTROSE 25,000 UNITS/500 ML BAG IV SCH (20:44)
[2021-12-08] MEDS: METOPROLOL TARTRATE 50 MG TAB PO SCH (20:44)
[2021-12-08] MEDS: ESCITALOPRAM OXALATE 10 MG TAB PO SCH (20:44)
[2021-12-08] MEDS: SIMVASTATIN 40 MG TAB PO SCH (20:50)
[2021-12-08] MEDS ORDERED: Heparin IV Adult Wt-Based Low-Dose *NO* Bolus Protocol IV ONE (21:00)
[2021-12-08] MEDS ORDERED: PYRIDOSTIGMINE BROMIDE 60 MG TAB PO SCH (21:00)
[2021-12-08] MEDS ORDERED: Heparin Adult LOW DOSE Wt-Based Dextrose 5% 25,000 units/500 mL IV SCH (21:00)
[2021-12-08] MEDS ORDERED: Nursing to Pharmacy Communication SCH (21:30)
[2021-12-09] MEDS: ACETAMINOPHEN 325 MG TAB PO PRN ×3 (02:16→19:59)
[2021-12-09 03:33] LABS: BUN Creatinine Ratio 21.1 (10-20); Calcium 8.2 mg/dl (8.5-10.1); Chol HDL Ratio 4.3 (0-5); Creatinine Clr Calc Pharmacy 55.6 ml/min; Est GFR (African American) 63.7 ml/min; Est GFR (Non-African American) 54.9 ml/min; Potassium 3.7 mmol/L (3.5-5.1)
[2021-12-09 03:38] LABS: Partial Thromboplastin Ratio 1.8
[2021-12-09 04:01] LABS: Partial Thromboplastin Time 50.2 Seconds (21.0-31.0)
[2021-12-09 04:09] LABS: Folate (Folic Acid) > 22.30 ng/ml (>5.38); Hematocrit (blood only) 26.3 % (40.1-51.0); Hemoglobin 8.3 g/dl (14.0-18.0); Mean Corpuscular Hemoglobin 28.8 pg (25.0-34.0); Mean Corpuscular Hgb Conc 31.6 g/dL (32.0-36.0); Mean Corpuscular Volume 91.3 fL (80.0-100.0); Nucleated RBC # (auto) 0.03 K/uL (0-0); Nucleated RBC % (auto) 0.8 %; Platelet Count 56 K/uL (130-400); RDW Coefficient of Variation 21.8 % (11.5-14.5); RDW Standard Deviation 72.2 fL (36.4-46.3); Red Blood Count 2.88 M/uL (4.63-6.08); Vitamin B12 413 pg/ml (180-914); White Blood Count 3.95 K/ul (4.8-10.8)
[2021-12-09 04:34] LABS: Basophils # (auto) 0.04 K/uL (0-0.2); Eosinophils # (auto) 0.17 K/uL (0-0.50); Eosinophils % (auto) 4.3 %; Immature Granulocytes # (auto) 0.02 K/uL (0.00-0.02); Immature Granulocytes % (auto) 0.5 %; Lymphocytes # (auto) 1.06 K/uL (1.2-3.4); Lymphocytes % (auto) 26.8 %; Monocytes % (auto) 7.6 %; Neutrophils # (auto) 2.36 K/uL (1.4-6.5); Neutrophils % (auto) 59.8 %; Polychromasia 1+
[2021-12-09] MEDS ORDERED: IRON SUCROSE 300 MG in SODIUM CHLORIDE 0.9% 250 ML IV ONE (09:00)
[2021-12-09] MEDS: ASPIRIN 81 MG ECTAB PO SCH (09:26)
[2021-12-09] MEDS: PYRIDOSTIGMINE BROMIDE 60 MG TAB PO SCH ×3 (09:27→16:47)
[2021-12-09] MEDS: LOSARTAN POTASSIUM 50 MG TAB PO SCH (09:27)
[2021-12-09] MEDS: FERROUS SULFATE 325 MG TAB PO SCH (09:27)
[2021-12-09] MEDS: FOLIC ACID 400 MCG TAB PO SCH (09:27)
[2021-12-09] MEDS: PANTOprazole 40 MG TAB PO SCH (09:27)
[2021-12-09] MEDS: METOPROLOL TARTRATE 50 MG TAB PO SCH ×2 (10:13→19:56)
--- NOTE | 2021-12-09 12:14 | Hospitalist Progress Note ---
Date of Service December 09, 2021 Assessment & Plan (1) Acute anemia: Plan: Sinan Ibarra is a 66-year-old male with a past medical history of atrial fibrillation on Eliquis with a history of anemia requiring transfusion, CAD, CKD, hypertension who presents with lightheadedness and dizziness when standing from his truck and attempting to walk. Did sustain a fall attempting to walk to his house to his side, did not strike his head. Continue to feel weak through the afternoon, consult the [facility] who were concerned that this was similar to prior anemia and recommended he be seen in the emergency department. Acute on chronic anemia, history of iron deficiency. No clinical bleeding Hemoglobin 6.4 from last 10.1 (11/16/2021) No electrolyte abnormalities Creatinine normal Iron panel with severe iron deficiency High-sensitivity troponin normal EGD 11/15/2021: Normal esophagus, gastritis. Recommended to continue PPI twice daily. Normal duodenum Colonoscopy 11/15/2021: Diverticulosis, nonbleeding internal hemorrhoids, no specimens collected. Recommended for 10-year colonoscopy surveillance Patient follows with [facility] and Carmen Wild as outpatient, was pending follow-up bone marrow biopsy next month per patient B12/folate pending - Tsat% 9. Venofer ordered. x1 given 12/09. Second dose to be given tomorrow AM. - If patient experiences continued hemoglobin drop consistent with acute bleedi ng or does not have appropriate rise hold heparin. If doing well/stable restart DOAC tomorrow AM. - FOBT+. If hgb stable --> outpt GI followup. If hgb continue sto drop --> inpt consultation. No clinical melena/saniya blood. Has had EGD/[place] in last month as noted above History of ITP/pancytopenia with progressively worsening anemia Platelet trends as low as 50-80 K, hemoglobin generally low nines Has undergone several bone marrow biopsies last 10/2016 without overt features of blasts/dysplastic cells. Flow cytometry unrevealing. Copper level normal, fluorescent in situ hybridization for MDS was negative at the time. Peripheral smear ordered, no additional labs at this time on discussion with [facility] provider - Plt 56, no indication for steroids/xfusion at this time Ocular myasthenia Follows with neurology Recurrent ptosis and double vision when fatigued 2021 acetylcholine receptor antibodies negative, MU SK antibody negative No evidence of thymoma Improved clinically with pyridostigmine 60 mg p.o. 3 times daily with extra half tablet as needed A. fib on anticoagulation, chronic anemia requiring transfusions No signs of active bleeding clinically, recent EGD/[place] unremarkable Undergoing 2 units of transfusion, apixaban held - Rate controlled, continue MTP - In afib at bedside CAD with history of CABG Continue losartan Continue metoprolol, hold for hypotension Continue aspirin, hold if evidence of active acute bleeding as noted Fall due to weakness 2/2 anemia C/B L3/L4 transverse process fracture CXR: No acute findings CT abdomen/pelvis: No solid organ injury appreciated. Left transverse process fracture of L3 and L4. Cirrhotic liver appearance with splenomegaly. Cardiomegaly with trace left pleural effusion. Right cortical atrophy of the kidney. Right-sided nephrolithiasis. CThead: No acute findings Tylenol, lidocaine patch for pain control Liver cirrhosis Appreciated on CT above. Prior imaging 2020 with splenomegaly, steatosis and possible cirrhosis Patient previously refused hepatitis screening Denies alcohol use Lipids, hep C pending DVT prophylaxis: Heparin/NOAC as noted Diet: Heart healthy Disposition: Telemetry CODE STATUS: Full code (2) Low back pain: (3) Iron deficiency anemia: (4) Hypertension: (5) Anxiety disorder: (6) Aortic stenosis: (7) Diastolic heart failure: (8) Thrombocytopenia: (9) Status post coronary artery bypass graft: (10) CAD (coronary artery disease): (11) GERD without esophagitis: (12) Hyperlipidemia: (13) S/P CABG x 3: (14) S/P aortic valve replacement with bioprosthetic valve: (15) Atrial fibrillation: Admission and Anticipated Discharge Date Admission Date: December 08, 2021 Subjective Seen at bedside. Feels much better this AM. Walking the halls with improved energy. No cp/cp/sob/dyspnea. Denies any bleeding. No ab pain. Hemooccult +. Color greatly improved per pts at bedside Review of Systems Review of Systems: All systems reviewed & are unremarkable except as noted in Subjective Physical Exam Physical Exam: General: A&Ox3. NAD. Cooperative. Pallor improved today HEENT: Atraumatic, normocephalic. Vision grossly intact, hearing grossly intact. Pulm: CTAB A&P. -wheezes, -rales, -rhonchi. Symmetrical chest rise. No increased work of breathing. No respiratory distress. Cardiac: irir, +sm Radial pulses intact and symmetrical. Abdominal: Nontender, nondistended, soft. BS present. Sensation to soft touch in ankles intact bilat. Moves all extremities equally. Walking halls prior to exam. Results & Data Results & Data ([facility]) Vital Signs (Past 12 Hours) Vital Signs Temp Pulse Pulse Resp BP BP Pulse Ox 12/09/21 11:44 36.8 C 57 L 18 135/71 96 12/09/21 07:51 36.7 C 61 18 149/72 H 94 12/09/21 07:26 54 L 12/09/21 03:48 36.7 C 61 20 128/60 96 12/09/21 02:14 36.8 C 56 L 18 144/76 H 97 12/09/21 01:13 36.8 C 60 16 133/74 96 12/09/21 00:13 36.8 C 58 L 16 99/61 L 95 O2 Del Method 12/09/21 11:44 Room Air 12/09/21 07:51 Room Air 12/09/21 07:26 12/09/21 03:48 Room Air 12/09/21 02:14 12/09/21 01:13 12/09/21 00:13 PG Care Time/CCT Total # of Minutes Spent Total Time Spent with Patient: Total time spent is greater than 50% in coordination of care (as documented) at patient's floor/unit and/or counseling patient: Coding Level of Care Code 71316 Subseq Hosp Care Lvl 3 Diagnoses Acute anemia D64.9 Low back pain M54.50 Back pain laterality: midline Chronicity: acute Sciatica presence: without sciatica Iron deficiency anemia D50.9 Hypertension I10 Anxiety disorder F41.9 Aortic stenosis I35.0 Diastolic heart failure I50.30 Thrombocytopenia D69.6 Status post coronary artery bypass graft Z95.1 CAD (coronary artery disease) I25.10 GERD without esophagitis K21.9 Hyperlipidemia E78.5 S/P CABG x 3 Z95.1 S/P aortic valve replacement with bioprosthetic valve Z95.3 Atrial fibrillation I48.0 Atrial fibrillation type: paroxysmal (1) Low back pain Back pain laterality: midline Chronicity: acute Sciatica presence: without sciatica Qualified Code(s): M54.50 - Low back pain, unspecified (2) Atrial fibrillation Atrial fibrillation type: paroxysmal Qualified Code(s): I48.0 - Paroxysmal atrial fibrillation
[2021-12-09] MEDS: LIDOCAINE 5% 1 PATCH TD SCH (17:58)
[2021-12-09 18:09] LABS: Hematocrit (blood only) 27.8 % (40.1-51.0); Hemoglobin 8.6 g/dl (14.0-18.0)
--- NOTE | 2021-12-09 18:39 | Discharge Summary ---
Date of Service December 10, 2021 Admission HPI Per Admitting Provider Sinan Ibarra is a 66-year-old male with a past medical history of atrial fibrillation on Eliquis with a history of anemia requiring transfusion, CAD, CKD, hypertension who presents with lightheadedness and dizziness when standing from his truck and attempting to walk. Did sustain a fall attempting to walk to his house to his side, did not strike his head. Continue to feel weak through the afternoon, consult the cancer care center who were concerned that this was similar to prior anemia and recommended he be seen in the emergency department. No bloody BMS. Recent EGD/colo Per pt feeling fatigued for a few days. "A had them symptoms like this before my last blood transfusion in October. Dizzy, a little worse when standing and almost falling." Noticed increased lightheadedness and general weakness for ~ 1 week. No bleeding. No chest pain No chest pressure No shortness of breath Last BM this afternoon, dark from iron pills but no blood and no recent change. No abdominal pain, gerd, reflux. Last outpt hematology visit was last month. Sees [facility]en [facility]. Was pending a followup and repeat testing at the end of this month 'but didn't make it that far.' Talked to [facility] nurse and was recommended to go to ER for ?anemia. Weak & lightheaded. Follows with [facility]. No myesthenia sx w/ pyridostigmine. Low back pain since falling. Medical History: Reviewed Medications: Reviewed Surgical History: Reviewed Allergies: Reviewed Social History: No tobacoc product use, no alcohol use, no MM use Code Status: Surrogate DM would be Pepper Ibarra. Full Code. Principal Diagnosis Acute on Chronic Anemia, severe iron deficiency Discharge Exam General: A&Ox3. NAD. Cooperative. Pallor improved today HEENT: Atraumatic, normocephalic. Vision grossly intact, hearing grossly intact. Pulm: CTAB A&P. -wheezes, -rales, -rhonchi. Symmetrical chest rise. No increased work of breathing. No respiratory distress. Cardiac: irir, +sm Radial pulses intact and symmetrical. Abdominal: Nontender, nondistended, soft. BS present. Sensation to soft touch in ankles intact bilat. Moves all extremities equally. Walking halls prior to exam. Discharge Data Allergies Allergy/AdvReac Type Severity Reaction Status Date / Time fluoxetine Allergy Intermediate rash Verified 12/08/21 15:27 tramadol Allergy Intermediate RASH Verified 12/08/21 15:27 Consultations 12/08/21 14:54 ED Decision to Admit Stat Ordered Studies 12/08/21 13:20 CT abd pelvis IV con only Stat CT head/brain wo con Stat CT lumbar spine w con Stat Hospital Course (1) Acute anemia: Sinan Ibarra is a 66-year-old male with a past medical history of atrial fibrillation on Eliquis with a history of anemia requiring transfusion, CAD, CKD, hypertension who presents with lightheadedness and dizziness when standing from his truck and attempting to walk. Did sustain a fall attempting to walk to his house to his side, did not strike his head. Continue to feel weak through the afternoon, consult the [facility] who were concerned that this was similar to prior anemia and recommended he be seen in the emergency department. He does not show any acute large volume blood loss, did have an occult positive stool with last colonoscopy/EGD within 1 month. Was profoundly iron deficient with TSAT of less than 10%, did have appropriate rise in hemoglobin after 2 units of blood, and was spontaneously uptrending following Venofer infusions. Completed to 300 mg Venofer infusions prior to discharge. To Do As Outpatient: 1. Followup to PCP, GI, Hemeonc 2. Repeat Hgb for stability in ~1 week 3. COntinue oral iron (may take QoD to minimize constipation) Acute on chronic anemia, history of iron deficiency. No clinical bleeding Hemoglobin 6.4 from last 10.1 (11/16/2021) No electrolyte abnormalities Creatinine normal Iron panel with severe iron deficiency High-sensitivity troponin normal EGD 11/15/2021: Normal esophagus, gastritis. Recommended to continue PPI twice daily. Normal duodenum Colonoscopy 11/15/2021: Diverticulosis, nonbleeding internal hemorrhoids, no specimens collected. Recommended for 10-year colonoscopy surveillance Patient follows with [facility] and [facility]en [facility] as outpatient, was pending follow-up bone marrow biopsy next month per patient B12/folate pending - Tsat% 9. Venofer ordered. x1 given 12/09. Second dose given 12/10 prior to discharge. - Hgb uptrending and stable - FOBT positive, pt with recent colo and EGD. Hemodynamically stable, outpt f/u History of ITP/pancytopenia with progressively worsening anemia Platelet trends as low as 50-80 K, hemoglobin generally low nines Has undergone several bone marrow biopsies last 10/2016 without overt features of blasts/dysplastic cells. Flow cytometry unrevealing. Copper level normal, fluorescent in situ hybridization for MDS was negative at the time. Peripheral smear ordered, no additional labs at this time on discussion with [facility] provider - Plt <100k during admit, no indication for steroids/xfusion Ocular myasthenia Follows with neurology Recurrent ptosis and double vision when fatigued 2021 acetylcholine receptor antibodies negative, MU SK antibody negative No evidence of thymoma Improved clinically with pyridostigmine 60 mg p.o. 3 times daily with extra half tablet as needed A. fib on anticoagulation, chronic anemia requiring transfusions No signs of active bleeding clinically, recent EGD/[place] unremarkable Undergoing 2 units of transfusion, apixaban held - Rate controlled, continue MTP - In afib at bedside CAD with history of CABG Continue losartan Continue metoprolol, hold for hypotension Continue aspirin, hold if evidence of active acute bleeding as noted Fall due to weakness 2/2 anemia C/B L3/L4 transverse process fracture CXR: No acute findings CT abdomen/pelvis: No solid organ injury appreciated. Left transverse process fracture of L3 and L4. Cirrhotic liver appearance with splenomegaly. Cardiomegaly with trace left pleural effusion. Right cortical atrophy of the kidney. Right-sided nephrolithiasis. CThead: No acute findings Tylenol, lidocaine patch for pain control Liver cirrhosis Appreciated on CT above. Prior imaging 2020 with splenomegaly, steatosis and possible cirrhosis Patient previously refused hepatitis screening Denies alcohol use Lipids, hep C pending DVT prophylaxis: Heparin/NOAC as noted Diet: Heart healthy Disposition: Telemetry CODE STATUS: Full code (2) Low back pain: (3) Iron deficiency anemia: (4) Hypertension: (5) Anxiety disorder: (6) Aortic stenosis: (7) Diastolic heart failure: (8) Thrombocytopenia: (9) Status post coronary artery bypass graft: (10) CAD (coronary artery disease): (11) GERD without esophagitis: (12) Hyperlipidemia: (13) S/P CABG x 3: (14) S/P aortic valve replacement with bioprosthetic valve: (15) Atrial fibrillation: Total Time Total Time Spent Total Time Spent (In Minutes): Time spend day of discharge 35 minutes including direct patient care, documentation, review of labs and images, and coordination of care. Discharge Plan Discharge Items Patient Disposition: Home - Self-Care Reason For Visit: ACUTE ON CHRONIC ANEMIA Discharge Diagnosis: Acute on chronic anemia, iron deficiency Activity: Resume your previous activity Non-emergency contact: Primary Care Provider Call non-emergency contact if: you have any medication questions, your symptoms worsen and your pain is not controlled Follow-up/Referrals: Hill Daniels MD [Primary Care Provider] - Diet: Heart Healthy Addtl Attending Provider Instructions: You were seen in the hospital for acute on chronic anemia. You received 2 units of blood with an appropriate rise in your blood levels, and did not show evidence of severe ongoing bleeding. You did have trace blood in your bowel movement (a fecal occult blood test was positive). You had a recent colonoscopy and EGD, a repeat as inpatient was not recommended and your blood levels remained stable and were increasing at time of discharge. Follow-up with your primary care provider and outpatient follow-up with GI is being arranged for you. You had sustained a fall fall with transverse process fractures of your back which did not require surgical intervention. He may take Tylenol [id number] as directed by package labeling for pain control. If you have not adequate pain control with Tylenol alone please discuss potential lidocaine patches and other interventions with your primary care provider at follow-up. You are at increased risk of stroke due to your A. fib. Your anticoagulation was converted to a heparin drip which could be stopped quickly in the case that you continued bleeding, fortunately you tolerated your anticoagulation well without further signs of bleeding or decreased blood levels. Your apixaban was continued at discharge, Your labs show evidence of extreme iron deficiency, with a transferrin saturation of less than 10% (normal is 20 to 50%). You received 2 infusions of IV iron 300 mg prior to discharge, and have been continued on an iron supplement every other day. There is no difference in efficacy between taking oral iron daily versus every other day. Follow-up is being scheduled for your primary care provider as above. If you do not receive a call to confirm your appointment within 48 hours please call their office directly. If you develop any new or worsening symptoms including fever, chills, sweats, chest pain, chest pressure, difficulty breathing, uncontrolled nausea/vomiting, rash, wheezing, passing out or nearly passing out, bleeding, black/bloody bowel movements, or other new or concerning symptoms please call your primary care physician, or call 911 for re-evaluation in the emergency department if you are very concerned. Pending Studies at Discharge: No Stand-Alone Forms: My [facility], Smoking Cessation Medications and DC Order Prescriptions: Continued metoprolol tartrate 50 mg tablet 50 mg PO BID Qty: 180 3RF escitalopram oxalate [Lexapro] 10 mg tablet 10 mg PO HS Qty: 90 3RF Rx Instructions: 1 tablet per day. fluticasone propionate [Flonase Allergy Relief] 50 mcg/actuation spray,suspension 2 spray INTNAS QAM Qty: 54 3RF Rx Instructions: administer into each nostril Eliquis 5 mg tablet 5 mg PO BID Qty: 180 3RF losartan 50 mg tablet 50 mg PO QAM Qty: 90 3RF simvastatin 40 mg tablet 40 mg PO HS Qty: 90 3RF cholecalciferol (vitamin D3) 50 mcg (2,000 unit) capsule 50 mcg PO QAM triamcinolone acetonide 0.1 % cream 1 applic topical BID PRN (Reason: Skin Irritation) ferrous sulfate 325 mg (65 mg iron) tablet,delayed release (DR/EC) 325 mg PO QAM omeprazole 40 mg capsule,delayed release(DR/EC) 40 mg PO BID Qty: 60 5RF pyridostigmine bromide 60 mg tablet See Rx Instructions .ROUTE .COMPLEX Rx Instructions: 60 mg orally; TAKES 60 MG QAM, THEN 30 MG WITH LUNCH AND DINNER folic acid 400 mcg Tablet 0.4 mg PO QAM aspirin 81 mg Tablet,Delayed Release (Dr/Ec) 81 mg PO QAM Discharge Orders: Discharge Order (Routine); Ordered 12/10/21 Ordered By: Lincoln Jackson Admission Data Admit Date/Time: 12/08/21 15:35 Attending Provider: Lincoln Jackson Admit Provider: Lincoln Jackson Primary Care Provider: Hill Daniels Other Providers: Lincoln Jackson Coding Level of Care Code D/C DAY MANAGEMENT >30 MINS Diagnoses Acute anemia D64.9 Low back pain M54.50 Back pain laterality: midline Chronicity: acute Sciatica presence: without sciatica Iron deficiency anemia D50.9 Hypertension I10 Anxiety disorder F41.9 Aortic stenosis I35.0 Diastolic heart failure I50.30 Thrombocytopenia D69.6 Status post coronary artery bypass graft Z95.1 CAD (coronary artery disease) I25.10 GERD without esophagitis K21.9 Hyperlipidemia E78.5 S/P CABG x 3 Z95.1 S/P aortic valve replacement with bioprosthetic valve Z95.3 Atrial fibrillation I48.0 Atrial fibrillation type: paroxysmal
[2021-12-09] MEDS: HEPARIN SODIUM/DEXTROSE 25,000 UNITS/500 ML BAG IV SCH (19:55)
[2021-12-09] MEDS: SIMVASTATIN 40 MG TAB PO SCH (19:55)
[2021-12-09] MEDS: ESCITALOPRAM OXALATE 10 MG TAB PO SCH (19:56)
[2021-12-10 07:34] LABS: BUN Creatinine Ratio 19.4 (10-20); Calcium 8.7 mg/dl (8.5-10.1); Creatinine Clr Calc Pharmacy 57.4 ml/min; Est GFR (African American) 66.1 ml/min; Potassium 3.7 mmol/L (3.5-5.1)
[2021-12-10 07:40] LABS: Anisocytosis Present; Basophils # (auto) 0.04 K/uL (0-0.2); Basophils % (auto) 0.9 %; Eosinophils # (auto) 0.29 K/uL (0-0.50); Eosinophils % (auto) 6.3 %; Hematocrit (blood only) 28.5 % (40.1-51.0); Hemoglobin 8.7 g/dl (14.0-18.0); Hypochromasia Present; Immature Granulocytes # (auto) 0.02 K/uL (0.00-0.02); Immature Granulocytes % (auto) 0.4 %; Lymphocytes # (auto) 1.07 K/uL (1.2-3.4); Lymphocytes % (auto) 23.3 %; Mean Corpuscular Hemoglobin 28.2 pg (25.0-34.0); Mean Corpuscular Hgb Conc 30.5 g/dL (32.0-36.0); Mean Corpuscular Volume 92.5 fL (80.0-100.0); Monocytes # (auto) 0.37 K/uL (0.24-0.82); Neutrophils # (auto) 2.81 K/uL (1.4-6.5); Neutrophils % (auto) 61.1 %; Nucleated RBC # (auto) 0.07 K/uL (0-0); Nucleated RBC % (auto) 1.5 %; Platelet Count 68 K/uL (130-400); Polychromasia 1+; RDW Coefficient of Variation 21.9 % (11.5-14.5); RDW Standard Deviation 72.4 fL (36.4-46.3); Red Blood Count 3.08 M/uL (4.63-6.08)
[2021-12-10 07:53] LABS: Partial Thromboplastin Ratio 2.6
[2021-12-10 08:22] LABS: Partial Thromboplastin Time 71.9 Seconds (21.0-31.0)
[2021-12-10] MEDS: ASPIRIN 81 MG ECTAB PO SCH (08:49)
[2021-12-10] MEDS: PANTOprazole 40 MG TAB PO SCH (08:49)
[2021-12-10] MEDS: METOPROLOL TARTRATE 50 MG TAB PO SCH (08:49)
[2021-12-10] MEDS: LOSARTAN POTASSIUM 50 MG TAB PO SCH (08:49)
[2021-12-10] MEDS: PYRIDOSTIGMINE BROMIDE 60 MG TAB PO SCH ×2 (08:49→12:42)
[2021-12-10] MEDS: FOLIC ACID 400 MCG TAB PO SCH (08:49)
[2021-12-10] MEDS: FERROUS SULFATE 325 MG TAB PO SCH (08:50)
[2021-12-10] MEDS ORDERED: IRON SUCROSE 300 MG in SODIUM CHLORIDE 0.9% 250 ML IV ONE (09:00)
[2021-12-10] MEDS ORDERED: APIXABAN 5 MG TABLET PO SCH (09:15)
== END 2021-12-10 13:11 | disposition home or self-care (01) | DRG 812 ==
LOC: ED 12:41 → EDINP 15:35 → 2S 17:21 → 2N 12-09 20:44

== ENCOUNTER 2023-02-28 15:11 | Inpatient (IN) ==
--- NOTE | 2023-02-28 15:19 | ED Triage Note ---
Date of Service February 28, 2023 History of Present Illness This patient was briefly evaluated while in triage. An abbreviated physical exam was performed. This patient is a 68-year-old Male who presents to the ED for evaluation of inability to void x 1 week. Normally able to void without problems. CKD-on dialysis x 1.5 months, told he had a kidney stone recently. No hematuria Physical Exam GENERAL: NAD CARDIOVASCULAR: RRR RESPIRATORY: CTA ABDOMEN: BS x 4. Nontender to palpation. Initial orders for labs and / or imaging were placed and patient was placed in the waiting area until a bed is available. Please see further documentation for the full ED course.
[2023-02-28 16:41] LABS: Basophils # (auto) 0.06 K/uL (0.00-0.20); Eosinophils % (auto) 1.7 %; Hematocrit (blood only) 35.3 % (42.0-52.0); Hemoglobin 11.2 g/dl (14.0-18.0); Immature Granulocytes # (auto) 0.01 K/uL (0.01-0.20); Immature Granulocytes % (auto) 0.2 %; Lymphocytes # (auto) 0.71 K/uL (1.20-3.40); Mean Corpuscular Hemoglobin 28.1 pg (25.0-34.0); Mean Corpuscular Hgb Conc 31.7 g/dL (32.0-36.0); Mean Corpuscular Volume 88.7 fL (80.0-100.0); Mean Platelet Volume 11.7 fL (9.4-12.4); Monocytes # (auto) 0.53 K/uL (0.11-0.59); Monocytes % (auto) 8.9 %; Neutrophils # (auto) 4.53 K/uL (1.40-6.50); Neutrophils % (auto) 76.2 %; Platelet Count 185 K/uL (130-400); RDW Coefficient of Variation 16.6 % (11.5-14.5); RDW Standard Deviation 54.3 fL (36.4-46.3); Red Blood Count 3.98 M/uL (4.70-6.10); White Blood Count 5.94 K/ul (4.8-10.8)
[2023-02-28 16:57] LABS: Alanine Aminotransferase 4 U/L (7-52); Albumin Level 3.2 gm/dl (3.4-5.0); Alkaline Phosphatase 70 U/L (34-104); Anion Gap 15 (3-11); Aspartate Aminotransferase 19 U/L (13-39); BUN Creatinine Ratio 7.4 (10-20); Bilirubin,Total 0.4 mg/dl (0.2-1.0); Blood Urea Nitrogen 27 mg/dl (6-23); Calcium 8.7 mg/dl (8.6-10.3); Carbon Dioxide 34 mmol/L (21-32); Chloride 88 mmol/L (98-107); Est GFR (African American) 18.6 ml/min; Globulin 3.2 gm/dl (2.5-4.0); Glucose 111 mg/dl (70-99(Fasting)); Potassium 3.5 mmol/L (3.5-5.1); Sodium 137 mmol/L (136-145); Total Protein 6.4 gm/dl (6.0-8.3)
--- NOTE | 2023-02-28 20:38 | CT Scan Report ---
Exam(s): CT ABDOMEN + PELVIS Without Contrast EXAM: CT Abdomen and Pelvis Without Intravenous Contrast CLINICAL HISTORY: Reason for exam: no urine output, hx of ckd, abd pain. TECHNIQUE: Axial computed tomography images of the abdomen and pelvis without intravenous contrast. CTDI is 26.15 mGy and DLP is 1458.93 mGy-cm. Automated exposure control was utilized for the study. A dose lowering technique was utilized adhering to the principles of ALARA. COMPARISON: No relevant prior studies available. FINDINGS: Lung bases: See below. Pleural space: Moderate RIGHT and small LEFT pleural effusions. Airspace consolidation at the lung bases, likely atelectasis. Cardiomegaly. Sternotomy wires. Prosthetic aortic valve. ABDOMEN: Liver: Unremarkable. Gallbladder and bile ducts: Cholecystectomy. No ductal dilation. Pancreas: Unremarkable. No ductal dilation. Spleen: Mild splenomegaly. Adrenals: Unremarkable. No mass. Kidneys and ureters: Obstructing 9 mm RIGHT proximal ureter stone. Mild hydronephrosis of the RIGHT kidney. Nonobstructing 10 mm RIGHT lower pole renal stone. Stomach and bowel: Diverticulosis, without acute diverticulitis. No small bowel obstruction. No free intraperitoneal air. PELVIS: Appendix: No findings to suggest acute appendicitis. Bladder: Unremarkable. No stones. Reproductive: Unremarkable as visualized. ABDOMEN and PELVIS: Intraperitoneal space: Abdominal ascites accumulating in the pelvis. No free air. Bones/joints: Degenerative changes of the spine. No acute fracture. No dislocation. Soft tissues: Anasarca. Vasculature: Atherosclerotic changes of the aorta. No abdominal aortic aneurysm. Lymph nodes: Unremarkable. No enlarged lymph nodes. IMPRESSION: 1. Obstructing 9 mm RIGHT proximal ureter stone. Mild hydronephrosis of the RIGHT kidney. 2. Nonobstructing 10 mm RIGHT lower pole renal stone. Electronically signed by: Yuri Leonard MD 02/28/23 20:37 PM
--- NOTE | 2023-02-28 21:43 | History & Physical Report ---
Date of Service February 28, 2023 Assessment & Plan (1) Calculus of proximal right ureter: (2) Hydronephrosis of right kidney: (3) End-stage renal disease on hemodialysis: (4) DVT (deep venous thrombosis): (5) (HFpEF) heart failure with preserved ejection fraction: (6) Hypertension: (7) CAD (coronary artery disease): (8) S/P CABG x 3: (9) S/P aortic valve replacement with bioprosthetic valve: (10) History of ITP: Plan 9 mm proximal right ureteral calculus/mild hydroureteronephrosis- N.p.o. after midnight NSS at 60 mils per hour x500 mL Follow urine culture and sensitivity, if produces urine Ceftriaxone 1 g IV every 24 hours Tylenol 1 g IV every 6 hours as needed for mild pain or fever Morphine sulfate 2 mg IV every 3 hours as needed for moderate to mild pain Zofran 4 mg IV every 6 hours as needed Consult urology ESRD on HD- Had dialysis earlier in the day today Still with significant lower extremity edema Consult nephrology CAD/hypertension/HFpEF/atrial fibrillation/status post AVR with bioprosthetic valve/status post CABG x3- Last apixaban dose was in the morning, will hold until after procedure and resume once cleared with urology Holding amlodipine Continue carvedilol History of Present Illness Chief Complaint: The patient presents to the emergency department with complaint of inability to void for the past week and having some mild abdominal and pelvic pain on the right side. He had been at dialysis today, who asked him to call nephrology, who is on asked him to call his PCPs office, who then referred him to the ED for assessment Primary Care Provider: Myranda Osorio MD The patient is a 68-year-old male with a past medical history including ESRD on HD, DVT, metabolic acidosis, acute GI bleeding, symptomatic anemia, right ventricular failure, HFpEF, hypertension, anxiety, aortic stenosis, CAD, GERD without esophagitis, atrial fibrillation, ITP, idiopathic polyneuropathy and cirrhosis. He presents to the emergency department with symptoms as noted above. Of note he has been on dialysis for the past 1-1/2 months. He also reports continued lower extremity swelling, that has not seem to be improved by dialysis today. Work-up in the emergency department included CT scan of abdomen pelvis which showed a 9 mm proximal ureteral stone with mild hydronephrosis and a 10 mm right lower pole renal stone. Allergies Allergy/AdvReac Type Severity Reaction Status Date / Time fluoxetine Allergy Intermediate rash Verified 01/31/23 08:40 tramadol Allergy Intermediate RASH Verified 01/31/23 08:40 Home Medications Medication Instructions Recorded Confirmed Type folic acid 400 mcg tablet 0.4 mg PO QAM 10/04/20 02/28/23 History cholecalciferol (vitamin D3) 50 50 mcg PO QAM 10/04/21 02/28/23 History mcg (2,000 unit) capsule apixaban 5 mg tablet (Eliquis) 5 mg PO BID #180 tabs 03/22/22 02/28/23 Rx gabapentin 100 mg capsule 100 mg PO TID #90 caps 09/15/22 02/28/23 Rx omeprazole 40 mg capsule,delayed 40 mg PO BID #180 caps 01/02/23 02/28/23 Rx release calcium acetate(phosphat bind) 667 667 mg PO TIDM #90 caps 02/07/23 02/28/23 Rx mg capsule amlodipine 10 mg tablet 10 mg PO DAILY #30 tabs 02/11/23 02/28/23 Rx rosuvastatin 10 mg tablet 10 mg PO DAILY #30 tabs 02/11/23 02/28/23 Rx escitalopram oxalate 10 mg tablet 10 mg PO HS #90 tabs 02/15/23 02/28/23 Rx (Lexapro) carvedilol 25 mg tablet 25 mg PO BIDM 02/28/23 02/28/23 History Past Med/Surg History Medical History (Updated 02/28/23 @ 21:39 by Sang Matias MD) Anemia HX Anxiety and depression Atrial fibrillation F/U DR [facility] CAD (coronary artery disease) Chronic back pain Cirrhosis Closed fracture of transverse process of lumbar vertebra GERD without esophagitis Hemorrhoids History of anal fissures History of ITP Hyperlipidemia Idiopathic thrombocytopenic purpura (ITP) Kidney disease HX MILD Metabolic acidosis Neuropathy Ocular myasthenia gravis Osteoarthritis Pancytopenia Plantar fasciitis Splenomegaly Thrombocytopenia Surgical History H/O prostate biopsy History of cholecystectomy 11/24/20/[facility] History of colonoscopy History of ERCP History of esophagogastroduodenoscopy (EGD) History of herniorrhaphy History of tooth extraction S/P aortic valve replacement with bioprosthetic valve 2015 AT [facility] S/P CABG x 3 2014 AT [facility] S/P laser cataract surgery Family History Sister Arthritis Mother Arthritis Cardiac disorder Hypertension Grandfather (Paternal) No problems noted. Grandfather (Maternal) Cancer Father Emphysema lung Brother Cardiac disorder Family/Other Breast cancer Other No family history of adverse response to anesthesia Denies family history of Ovarian cancer Prostate cancer Myocardial infarction Colorectal cancer Social History Smoking Status: Unknown if ever smoked Second Hand Exposure: Yes ( A CHILD); Do You Dip or Chew Tobacco: No (QUIT 30 YRS AGO); Hx Alcohol Use: No Hx Substance Use: No Preferred Language: Urdu Communication Ability: Effective Visual Impairment: No Limitations Hearing Ability: Normal Instructor Physical Education Required: No Beliefs That Will Affect Care: None marital status: Current Living Situation: Spouse current occupational status: retired How many Children do You have: 0 other: Former [employer] employee Feels Safe at Home: Yes Childhood Exposure to Second-Hand Smoke: Yes Dental Care, Regularly: No Physical Activity Frequency: Daily Physical Activity Frequency Comment: 30 min Seatbelt Use: always Sunscreen Use: No Assistive Devices: None Review of Systems Review of Systems: The patient denies chest pain, palpitations, shortness of breath, dyspnea on exertion, cough, sore throat, fevers, chills, sweats, weight change, fatigue, nausea, vomiting, diarrhea , constipation, abdominal pain, pelvic pain, blood in urine or stool, lightheadedness, dizziness, headache, memory loss, loss of consciousness, rash, abnormal bruising or bleeding, imbalance, focal or generalized weakness, numbness or tingling in arms or legs, generalized arthralgias or myalgias, back or neck pain, or night sweats. The review of systems is otherwise negative other than for that already noted above, and at least 10 systems have been reviewed. Physical Exam Physical Exam: The patient is awake, alert and oriented 3, well developed and well nourished, normocephalic and atraumatic, lying in bed and in no acute distress. HEENT--PERRL, EOMI, mucous membranes and oropharynx mildly dry. Neck--supple. No JVD. No bruits. Thyroid normal, trachea midline, no adenopathy. Heart--normal S1 and S2. No murmurs, rubs or gallops. Lungs--clear bilaterally, no respiratory distress, no accessory muscle use. Abdomen--normal bowel sounds and soft. Nontender. Nondistended Extremities--3+ bilateral pretibial and pedal pitting edema Dermatologic--normal skin turgor, normal color Neurologic--cranial nerves II through XII grossly intact. Rheumatologic--limited exam Psychiatric--normal affect. Results & Data Results & Data Vital Signs (Past 12 Hours) Vital Signs Temp Pulse Pulse Resp BP BP Pulse Ox 02/28/23 21:05 89 L 02/28/23 20:33 69 18 139/72 91 02/28/23 15:17 36.7 C 66 20 122/74 93 O2 Del Method 02/28/23 21:05 Room Air 02/28/23 20:33 Room Air 02/28/23 15:17 Room Air Laboratory Results Laboratory Results WBC 5.94 K/ul (4.8-10.8) 02/28/23 16:12 RBC 3.98 M/uL (4.70-6.10) L 02/28/23 16:12 Hgb 11.2 g/dl (14.0-18.0) L 02/28/23 16:12 Hct 35.3 % (42.0-52.0) L 02/28/23 16:12 MCV 88.7 fL (80.0-100.0) 02/28/23 16:12 MCH 28.1 pg (25.0-34.0) 02/28/23 16:12 MCHC 31.7 g/dL (32.0-36.0) L 02/28/23 16:12 RDW Std Deviation 54.3 fL (36.4-46.3) H 02/28/23 16:12 RDW Coeff of Juan 16.6 % (11.5-14.5) H 02/28/23 16:12 Plt Count 185 K/uL (130-400) 02/28/23 16:12 MPV 11.7 fL (9.4-12.4) 02/28/23 16:12 Immature Gran % (Auto) 0.2 % 02/28/23 16:12 Neut % (Auto) 76.2 % 02/28/23 16:12 Lymph % (Auto) 12.0 % 02/28/23 16:12 [place] % (Auto) 8.9 % 02/28/23 16:12 Eos % (Auto) 1.7 % 02/28/23 16:12 Baso % (Auto) 1.0 % 02/28/23 16:12 Neut # (Auto) 4.53 K/uL (1.40-6.50) 02/28/23 16:12 Lymph # (Auto) 0.71 K/uL (1.20-3.40) L 02/28/23 16:12 [place] # (Auto) 0.53 K/uL (0.11-0.59) 02/28/23 16:12 Eos # (Auto) 0.10 K/uL (0.00-0.50) 02/28/23 16:12 Baso # (Auto) 0.06 K/uL (0.00-0.20) 02/28/23 16:12 Immature Gran # (Auto) 0.01 K/uL (0.01-0.20) 02/28/23 16:12 Sodium 137 mmol/L (136-145) 02/28/23 16:12 Potassium 3.5 mmol/L (3.5-5.1) 02/28/23 16:12 Chloride 88 mmol/L (98-107) L 02/28/23 16:12 Carbon Dioxide 34 mmol/L (21-32) H 02/28/23 16:12 Anion Gap 15 (3-11) H 02/28/23 16:12 BUN 27 mg/dl (6-23) H 02/28/23 16:12 Creatinine 3.64 mg/dl (0.6-1.4) H 02/28/23 16:12 Est Cr Clr Drug Dosing Not Reportable 02/28/23 16:12 Est GFR ( Amer) 18.6 ml/min 02/28/23 16:12 Est GFR (Non-Af Amer) 16.0 ml/min 02/28/23 16:12 BUN/Creatinine Ratio 7.4 (10-20) L 02/28/23 16:12 Glucose 111 mg/dl (70-99(Fasting)) H 02/28/23 16:12 Calcium 8.7 mg/dl (8.6-10.3) 02/28/23 16:12 Total Bilirubin 0.4 mg/dl (0.2-1.0) 02/28/23 16:12 AST 19 U/L (13-39) 02/28/23 16:12 ALT 4 U/L (7-52) L 02/28/23 16:12 Alkaline Phosphatase 70 U/L (34-104) 02/28/23 16:12 Total Protein 6.4 gm/dl (6.0-8.3) 02/28/23 16:12 Albumin 3.2 gm/dl (3.4-5.0) L 02/28/23 16:12 Globulin 3.2 gm/dl (2.5-4.0) 02/28/23 16:12 Albumin/Globulin Ratio 1.0 (0.9-2) 02/28/23 16:12 Impressions Abdomen/Pelvis CT 02/28/23 19:16 Exam(s): CT ABDOMEN + PELVIS Without Contrast EXAM: CT Abdomen and Pelvis Without Intravenous Contrast CLINICAL HISTORY: Reason for exam: no urine output, hx of ckd, abd pain. TECHNIQUE: Axial computed tomography images of the abdomen and pelvis without intravenous contrast. CTDI is 26.15 mGy and DLP is 1458.93 mGy-cm. Automated exposure control was utilized for the study. A dose lowering technique was utilized adhering to the principles of ALARA. COMPARISON: No relevant prior studies available. FINDINGS: Lung bases: See below. Pleural space: Moderate RIGHT and small LEFT pleural effusions. Airspace consolidation at the lung bases, likely atelectasis. Cardiomegaly. Sternotomy wires. Prosthetic aortic valve. ABDOMEN: Liver: Unremarkable. Gallbladder and bile ducts: Cholecystectomy. No ductal dilation. Pancreas: Unremarkable. No ductal dilation. Spleen: Mild splenomegaly. Adrenals: Unremarkable. No mass. Kidneys and ureters: Obstructing 9 mm RIGHT proximal ureter stone. Mild hydronephrosis of the RIGHT kidney. Nonobstructing 10 mm RIGHT lower pole renal stone. Stomach and bowel: Diverticulosis, without acute diverticulitis. No small bowel obstruction. No free intraperitoneal air. PELVIS: Appendix: No findings to suggest acute appendicitis. Bladder: Unremarkable. No stones. Reproductive: Unremarkable as visualized. ABDOMEN and PELVIS: Intraperitoneal space: Abdominal ascites accumulating in the pelvis. No free air. Bones/joints: Degenerative changes of the spine. No acute fracture. No dislocation. Soft tissues: Anasarca. Vasculature: Atherosclerotic changes of the aorta. No abdominal aortic aneurysm. Lymph nodes: Unremarkable. No enlarged lymph nodes. IMPRESSION: 1. Obstructing 9 mm RIGHT proximal ureter stone. Mild hydronephrosis of the RIGHT kidney. 2. Nonobstructing 10 mm RIGHT lower pole renal stone. Electronically signed by: Yuri Leonard MD 02/28/23 20:37 PM Code Status & VTE Plan Code Status Full code VTE Prophylaxis Plan VTE Prophylaxis will be ordered: Yes PG Care Time/CCT Total # of Minutes Spent Total Time Spent with Patient: Total time spent is greater than 50% in coordination of care (as documented) at patient's floor/unit and/or counseling patient: Coding Level of Care Code 96204 INT INP/OBS CARE 3/75MIN Diagnoses Calculus of proximal right ureter N20.1 Hydronephrosis of right kidney N13.30 End-stage renal disease on hemodialysis N18.6; Z99.2 DVT (deep venous thrombosis) I82.409 (HFpEF) heart failure with preserved ejection fraction I50.30 Hypertension I10 CAD (coronary artery disease) I25.10 S/P CABG x 3 Z95.1 S/P aortic valve replacement with bioprosthetic valve Z95.3 History of ITP Z86.2
--- NOTE | 2023-02-28 21:49 | Urology Consultation ---
Date of Consultation February 28, 2023 Assessment & Plan (1) Calculus of proximal right ureter: The patient is being admitted on the hospitalist service. From a urologic perspective we recommend proceeding as follows: Provide as needed analgesics and antiemetics if needed Serial labs to be followed Would recommend making the patient n.p.o. after midnight the patient will be reevaluated in the morning to determine if cystoscopic intervention is required. I discussed with my attending physician Dr. Dickson and although the patient is no longer producing urine he is on dialysis and there is no need for urgent urologic intervention as the patient is normotensive and afebrile without leukocytosis. And Additional recommendations to be forthcoming based on ensuing evaluation in the morning and his clinical course as it History of Present Illness Reason for Consultation: Nephrolithiasis History of Present Illness This is a 68-year-old male who was referred to the emergency department by his primary care team secondary to the inability to urinate. Patient notes that he has been on dialysis he and his estimate for approximately 2 months. The patient notes up until about 1 week ago he was still able to make urine but for the past week he has been unable to urinate at all. He does undergo hemodialysis on Monday and Monday and he did undergo a full dialysis session today. He did report some bilateral flank pain while at dialysis and he was therefore referred to the emergency department. The patient specifically denies any fevers, shakes, or chills. He denies any hematuria when he was able to produce urine. When he was producing urine he did not report any dysuria. He has no prior history of kidney stones. Since arrival to the emergency department the patient notes that any discomfort he may have been experiencing has abated and he has not received any analgesics in the emergency department. Of note, the patient does take Eliquis for history of atrial fibrillation Since arrival to the hospital emergency department the patient has had labs and imaging which I independent reviewed. A CT scan of the abdomen pelvis showed th e patient had an obstructing 9 mm right proximal ureteral stone resulting in mild hydronephrosis of the right kidney. He was also noted to have a nonobstructing 10 mm right lower renal pole stone. There is noted some abdominal ascites in the pelvic area. There is no intraperitoneal free air. Labs include a CBC her white blood cell count and platelet count were normal. Hemoglobin and hematocrit were 11.2 and 35.3. Chemistry profile showed sodium and potassium are normal. His BUN and creatinine were 27 and 3.6. A urinalysis was unable to be obtained. At the time of my interview the patient was resting comfortably in bed and he was in no distress Allergies Allergy/AdvReac Type Severity Reaction Status Date / Time fluoxetine Allergy Intermediate rash Verified 01/31/23 08:40 tramadol Allergy Intermediate RASH Verified 01/31/23 08:40 Home Medications Medication Instructions Recorded Confirmed Type folic acid 400 mcg tablet 0.4 mg PO QAM 10/04/20 02/28/23 History cholecalciferol (vitamin D3) 50 50 mcg PO QAM 10/04/21 02/28/23 History mcg (2,000 unit) capsule apixaban 5 mg tablet (Eliquis) 5 mg PO BID #180 tabs 03/22/22 02/28/23 Rx gabapentin 100 mg capsule 100 mg PO TID #90 caps 09/15/22 02/28/23 Rx omeprazole 40 mg capsule,delayed 40 mg PO BID #180 caps 01/02/23 02/28/23 Rx release calcium acetate(phosphat bind) 667 667 mg PO TIDM #90 caps 02/07/23 02/28/23 Rx mg capsule amlodipine 10 mg tablet 10 mg PO DAILY #30 tabs 02/11/23 02/28/23 Rx rosuvastatin 10 mg tablet 10 mg PO DAILY #30 tabs 02/11/23 02/28/23 Rx escitalopram oxalate 10 mg tablet 10 mg PO HS #90 tabs 02/15/23 02/28/23 Rx (Lexapro) carvedilol 25 mg tablet 25 mg PO BIDM 02/28/23 02/28/23 History Patient History Medical History Anemia HX Anxiety and depression Atrial fibrillation F/U DR [facility] CAD (coronary artery disease) Chronic back pain Cirrhosis Closed fracture of transverse process of lumbar vertebra GERD without esophagitis Hemorrhoids History of anal fissures History of ITP Hyperlipidemia Idiopathic thrombocytopenic purpura (ITP) Kidney disease HX MILD Metabolic acidosis Neuropathy Ocular myasthenia gravis Osteoarthritis Pancytopenia Plantar fasciitis Splenomegaly Thrombocytopenia Surgical History H/O prostate biopsy History of cholecystectomy 11/24/20/[facility] History of colonoscopy History of ERCP History of esophagogastroduodenoscopy (EGD) History of herniorrhaphy History of tooth extraction S/P aortic valve replacement with bioprosthetic valve 2015 AT [facility] S/P CABG x 3 2014 AT [facility] S/P laser cataract surgery Family History Sister Arthritis Mother Arthritis Cardiac disorder Hypertension Grandfather (Paternal) No problems noted. Grandfather (Maternal) Cancer Father Emphysema lung Brother Cardiac disorder Family/Other Breast cancer Other No family history of adverse response to anesthesia Denies family history of Ovarian cancer Prostate cancer Myocardial infarction Colorectal cancer Social History Smoking Status: Unknown if ever smoked Second Hand Exposure: Yes ( A CHILD); Do You Dip or Chew Tobacco: No (QUIT 30 YRS AGO); Hx Alcohol Use: No Hx Substance Use: No Preferred Language: [place] Islander Communication Ability: Effective Visual Impairment: No Limitations Hearing Ability: Normal Dairy Clerk Required: No Beliefs That Will Affect Care: None marital status: Current Living Situation: Spouse current occupational status: retired How many Children do You have: 0 other: Former [employer] employee Feels Safe at Home: Yes Childhood Exposure to Second-Hand Smoke: Yes Dental Care, Regularly: No Physical Activity Frequency: Daily Physical Activity Frequency Comment: 30 min Seatbelt Use: always Sunscreen Use: No Assistive Devices: None Review of Systems Constitutional: no fever and no chills Eyes: + corrective lenses Ear, Nose, Mouth, Throat: no ear pain Respiratory: no cough and no dyspnea Cardiovascular: no chest pain Gastrointestinal: no abdominal pain, no nausea and no vomiting Genitourinary: + as per Subjective / HPI Musculoskeletal: + back pain (Right-sided flank pain that has resolved) Integumentary: no rash Neurologic: no localized weakness Physical Exam Constitutional: WD/WN, vitals as above Eyes: no conjunctival abnormality Wears glasses ENMT: Ears: no hearing impairment and no external ear abnormality Mouth: no oropharynx abnormality Neck: trachea midline The patient had a tunneled hemodialysis catheter which appeared to be in the right subclavian position Respiratory: normal respiratory effort; no respiratory distress and no labored breathing Cardiovascular: Rate/Rhythm: regular rate and regular rhythm Gastrointestinal (Abdomen): Abdomen is soft and nondistended. It is nonrigid. There is no rebound tenderness or guarding. There is no pain with palpation Musculoskeletal: No calf tenderness. Bilateral lower extremity edema noted approximately 2+ Skin: no rashes Neurologic: moves all extremities Psychiatric: A+Ox3, euthymic affect Genitourinary: No CVA tenderness with percussion bilateral Results & Data Vital Signs (Past 12 Hours) Vital Signs Temp Pulse Pulse Resp BP BP Pulse Ox 02/28/23 21:05 89 L 02/28/23 20:33 69 18 139/72 91 02/28/23 15:17 36.7 C 66 20 122/74 93 O2 Del Method 02/28/23 21:05 Room Air 02/28/23 20:33 Room Air 02/28/23 15:17 Room Air PG Care Time/CCT Total # of Minutes Spent Total Time Spent with Patient: Total time spent is greater than 50% in coordination of care (as documented) at patient's floor/unit and/or counseling patient: Coding Level of Care Code 37580 INT INP/OBS CARE 3/75MIN Diagnoses Calculus of proximal right ureter N20.1
--- NOTE | 2023-02-28 22:15 | Emergency Department Note ---
Impression & Plan Ureterolithiasis, Pleural effusion, Hydronephrosis, Volume overload ED Provider Note INFORMANT: Patient and significant other ED PROVIDER(S): Niraj Patton MD CHIEF COMPLAINT: Unable to void PLAN: Disposition: Admitted Outpatient prescription management: none Referral: None MEDICAL DECISION MAKING: Patient presented because of difficulty with voiding over the last week. He is recently been started on dialysis. Patient has a moderate amount of lower extremity and abdominal wall edema. notes this started after his last hospitalization. Patient underwent a work-up here. He had a elevated creatinine but not significantly in light of his dialysis status. Chemistries were unremarkable. The patient underwent CT imaging of the abdomen pelvis. He was found to have right-sided nephrolithiasis as well as right-sided ureterolithiasis with hydronephrosis. There was a right pleural effusion and there was some fluid in the pelvis as well as abdominal wall edema. I did discuss the urologic findings with Dr. Dickson of urology. He did review the images. Spraggs like this was an obstructing stone and noted that the right kidney was small in stature. Recommended the patient be n.p.o. after midnight and will be reevaluated in the morning for possible stenting. Consultation was made with Dr. Sang Matias of the [facility] service. Patient was evaluated in the ER for further management. Care/management discussed with: Discussed with application release manager Level of care consideration(s): After review of the information above and other included data, I feel the patient requires escalation of care to admission Triage Nursing notes: reviewed and agree them. Vital Signs: reviewed and remarkable for no significant abnormalities Additional History obtained from: Patient's significant other regarding his hospitalization, amount of edema present, and his status over the last week at home. Chronic Medical/Social Conditions affecting care: Acute renal failure, GI bleed, CAD Prior /Outside records reviewed: none Differential Diagnosis: End-stage renal disease, obstruction, renal colic, UTI, appendicitis, diverticulitis, mesenteric ischemia, aortic pathology, infections, inflammatory bowel disease, PUD, biliary pathology, as well as other pathologies. Diagnostics, independently interpreted by me: ECG: none. Cardiac Monitoring: Cardiac monitoring ordered by me: The patient was placed on continuous cardiac monitoring and observed. It revealed a normal sinus rhythm at 69 beats per minute without ectopy or evidence of dysrhythmia. Medical decision rules: none Imaging studies: CT scan as above. Right ureterolithiasis. I refer you to the EMR for further details. HPI: The patient is a 68-year-old male who arrives for evaluation of unable to void. Patient notes that he recently was diagnosed with renal failure and started on dialysis after his last hospitalization. Patient notes he has not been urinating hardly at all over the last week. He has had some intermittent abdominal pain as well. Patient has been getting dialysis on Monday, , and Monday. 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 When he called the nephrology office they noted that dialysis should have contacted him. He needed to follow-up with his family doctor. Patient contacted his family doctor's office and was referred to the emergency department. Pt denies LOC, headache, fevers, chills, diaphoresis, visual changes, neck pain, chest pain, breathing difficulties, nausea, vomiting, back pain, melena, hematochezia, numbness, weakness, lymphadenopathy, rash, or other complaints. PAST MEDICAL HISTORY: See Below, WILLIAM, ARF, GI bleed PAST SURGICAL HISTORY: See Below, SOCIAL HISTORY: See Below, retired HOME MEDICATIONS: See Below ALLERGIES: See Below VITALS: See Below PHYSICAL EXAMINATION: GENERAL: Awake, alert, well-appearing, in no distress HENT: Normocephalic, atraumatic. Oropharynx unremarkable. EYES: Pale conjunctiva. Sclera non-icteric. NECK: Inspection normal. Non-tender. Supple. No nuchal rigidity. FROM. No masses. RESPIRATORY: Clear to auscultation. No wheezes. No rales. Normal respiratory effort. CARDIAC: Normal rate. Normal rhythm. No murmurs. No rubs. Extremities warm and well perfused. Pulses equal. No JVD. GI: Soft, non-distended. Mild abdominal wall edema present. No tenderness to palpation. No rebound or guarding. No masses. RECTAL: Deferred. MUSCULOSKELETAL: Atraumatic. Chest examination reveals no tenderness. The back is symmetrical on inspection without obvious abnormality. There is no CVA tenderness to palpation. There is edema noted to the left upper extremity. Patient has no tenderness. LOWER EXTREMITIES: Calves are equal size bilaterally and non-tender. 3+ pitting edema. No discoloration. NEURO: Normal sensorium. No sensory or motor deficits noted. SKIN: No rash or jaundice noted. PROCEDURES: none CRITICAL CARE: none OBSERVATION NOTE: none Past Med/Surg History Medical History Anemia HX Anxiety and depression Atrial fibrillation F/U DR MILTON MEDINA CAD (coronary artery disease) Chronic back pain Cirrhosis Closed fracture of transverse process of lumbar vertebra GERD without esophagitis Hemorrhoids History of anal fissures History of ITP Hyperlipidemia Idiopathic thrombocytopenic purpura (ITP) Kidney disease HX MILD Metabolic acidosis Neuropathy Ocular myasthenia gravis Osteoarthritis Pancytopenia Plantar fasciitis Splenomegaly Thrombocytopenia Surgical History H/O prostate biopsy History of cholecystectomy 11/24/20/[facility] History of colonoscopy History of ERCP History of esophagogastroduodenoscopy (EGD) History of herniorrhaphy History of tooth extraction S/P aortic valve replacement with bioprosthetic valve 2014 [facility] S/P CABG x 3 2014 AT [facility] S/P laser cataract surgery Family History Sister Arthritis Mother Arthritis Cardiac disorder Hypertension Grandfather (Paternal) No problems noted. Grandfather (Maternal) Cancer Father Emphysema lung Brother Cardiac disorder Family/Other Breast cancer Other No family history of adverse response to anesthesia Denies family history of Ovarian cancer Prostate cancer Myocardial infarction Colorectal cancer Social History Smoking Status: Unknown if ever smoked Second Hand Exposure: Yes ( A CHILD); Do You Dip or Chew Tobacco: No (QUIT 30 YRS AGO); Hx Alcohol Use: No Hx Substance Use: No Preferred Language: Sri Lankan Communication Ability: Effective Visual Impairment: No Limitations Hearing Ability: Normal Porcelain Enameling Supervisor Required: No Beliefs That Will Affect Care: None marital status: Current Living Situation: Spouse current occupational status: retired How many Children do You have: 0 other: Former [employer] employee Feels Safe at Home: Yes Childhood Exposure to Second-Hand Smoke: Yes Dental Care, Regularly: No Physical Activity Frequency: Daily Physical Activity Frequency Comment: 30 min Seatbelt Use: always Sunscreen Use: No Assistive Devices: None Allergies Allergies Allergy/AdvReac Type Severity Reaction Status Date / Time fluoxetine Allergy Intermediate rash Verified 01/31/23 08:40 tramadol Allergy Intermediate RASH Verified 01/31/23 08:40 Home Meds Home Medications Medication Instructions Recorded Confirmed folic acid 400 mcg tablet 0.4 mg PO QAM 10/04/20 02/28/23 cholecalciferol (vitamin D3) 50 50 mcg PO QAM 10/04/21 02/28/23 mcg (2,000 unit) capsule carvedilol 25 mg tablet 25 mg PO BIDM 02/28/23 02/28/23 Previous Rx's Medication Instructions Recorded apixaban 5 mg tablet (Eliquis) 5 mg PO BID #180 tabs 03/22/22 gabapentin 100 mg capsule 100 mg PO TID #90 caps 09/15/22 omeprazole 40 mg capsule,delayed 40 mg PO BID #180 caps 01/02/23 release calcium acetate(phosphat bind) 667 667 mg PO TIDM #90 caps 02/07/23 mg capsule amlodipine 10 mg tablet 10 mg PO DAILY #30 tabs 02/11/23 rosuvastatin 10 mg tablet 10 mg PO DAILY #30 tabs 02/11/23 escitalopram oxalate 10 mg tablet 10 mg PO HS #90 tabs 02/15/23 (Lexapro) Results & Data (ED) Vital Signs Vital Signs - 24 hr 02/28/23 15:17 02/28/23 20:33 02/28/23 21:05 Temperature 36.7 C Temperature Source Temporal Artery Scan Pulse Rate 66 Pulse Rate [Apical] 69 Respiratory Rate 20 18 Respiratory Effort / Characteristics Non-Labored Spontaneous Non-Labored Respiratory Depth Normal Normal Respiratory Pattern Regular Blood Pressure 122/74 Blood Pressure [Right Arm] 139/72 Blood Pressure Mean 90 Blood Pressure Mean [Right Arm] 94 Pulse Oximetry 93 91 89 L Oxygen Delivery Method Room Air Room Air Room Air Sepsis Recent Fever Within 48 Hours No Sepsis New/Unexplained Change in Mental Status No Sepsis Action Taken by Nursing No Action Required Oxygen Flow Rate - Titration 2 Pulse Oximetry Post Tiitration 95 Laboratory Data 02/28/23 16:12 02/28/23 16:12 Lab Results 02/28/23 02/28/23 Range/Units 16:12 16:12 WBC 5.94 (4.8-10.8) K/ul RBC 3.98 L (4.70-6.10) M/uL Hgb 11.2 L (14.0-18.0) g/dl Hct 35.3 L (42.0-52.0) % MCV 88.7 (80.0-100.0) fL MCH 28.1 (25.0-34.0) pg MCHC 31.7 L (32.0-36.0) g/dL RDW Std Deviation 54.3 H (36.4-46.3) fL RDW Coeff of Juan 16.6 H (11.5-14.5) % Plt Count 185 (130-400) K/uL MPV 11.7 (9.4-12.4) fL Immature Gran % (Auto) 0.2 % Neut % (Auto) 76.2 % Lymph % (Auto) 12.0 % Loving % (Auto) 8.9 % Eos % (Auto) 1.7 % Baso % (Auto) 1.0 % Neut # (Auto) 4.53 (1.40-6.50) K/uL Lymph # (Auto) 0.71 L (1.20-3.40) K/uL Loving # (Auto) 0.53 (0.11-0.59) K/uL Eos # (Auto) 0.10 (0.00-0.50) K/uL Baso # (Auto) 0.06 (0.00-0.20) K/uL Immature Gran # (Auto) 0.01 (0.01-0.20) K/uL Sodium 137 (136-145) mmol/L Potassium 3.5 (3.5-5.1) mmol/L Chloride 88 L (98-107) mmol/L Carbon Dioxide 34 H (21-32) mmol/L Anion Gap 15 H (3-11) BUN 27 H (6-23) mg/dl Creatinine 3.64 H (0.6-1.4) mg/dl Est Cr Clr Drug Dosing Not Reportable Est GFR ( Amer) 18.6 ml/min Est GFR (Non-Af Amer) 16.0 ml/min BUN/Creatinine Ratio 7.4 L (10-20) Glucose 111 H (70-99(Fasting)) mg/dl Calcium 8.7 (8.6-10.3) mg/dl Total Bilirubin 0.4 (0.2-1.0) mg/dl AST 19 (13-39) U/L ALT 4 L (7-52) U/L Alkaline Phosphatase 70 (34-104) U/L Total Protein 6.4 (6.0-8.3) gm/dl Albumin 3.2 L (3.4-5.0) gm/dl Globulin 3.2 (2.5-4.0) gm/dl Albumin/Globulin Ratio 1.0 (0.9-2) Imaging Data Radiologist's Impression: Abdomen/Pelvis CT 02/28/23 19:16 Exam(s): CT ABDOMEN + PELVIS Without Contrast EXAM: CT Abdomen and Pelvis Without Intravenous Contrast CLINICAL HISTORY: Reason for exam: no urine output, hx of ckd, abd pain. TECHNIQUE: Axial computed tomography images of the abdomen and pelvis without intravenous contrast. CTDI is 26.15 mGy and DLP is 1458.93 mGy-cm. Automated exposure control was utilized for the study. A dose lowering technique was utilized adhering to the principles of ALARA. COMPARISON: No relevant prior studies available. FINDINGS: Lung bases: See below. Pleural space: Moderate RIGHT and small LEFT pleural effusions. Airspace consolidation at the lung bases, likely atelectasis. Cardiomegaly. Sternotomy wires. Prosthetic aortic valve. ABDOMEN: Liver: Unremarkable. Gallbladder and bile ducts: Cholecystectomy. No ductal dilation. Pancreas: Unremarkable. No ductal dilation. Spleen: Mild splenomegaly. Adrenals: Unremarkable. No mass. Kidneys and ureters: Obstructing 9 mm RIGHT proximal ureter stone. Mild hydronephrosis of the RIGHT kidney. Nonobstructing 10 mm RIGHT lower pole renal stone. Stomach and bowel: Diverticulosis, without acute diverticulitis. No small bowel obstruction. No free intraperitoneal air. PELVIS: Appendix: No findings to suggest acute appendicitis. Bladder: Unremarkable. No stones. Reproductive: Unremarkable as visualized. ABDOMEN and PELVIS: Intraperitoneal space: Abdominal ascites accumulating in the pelvis. No free air. Bones/joints: Degenerative changes of the spine. No acute fracture. No dislocation. Soft tissues: Anasarca. Vasculature: Atherosclerotic changes of the aorta. No abdominal aortic aneurysm. Lymph nodes: Unremarkable. No enlarged lymph nodes. IMPRESSION: 1. Obstructing 9 mm RIGHT proximal ureter stone. Mild hydronephrosis of the RIGHT kidney. 2. Nonobstructing 10 mm RIGHT lower pole renal stone. Electronically signed by: Yuri Leonard MD 02/28/23 20:37 PM Discharge Plan Visit Data Chief Complaint: Unable to Void Stated Complaint: UNABLE TO VOID ED Provider: Niraj Patton Discharge Problem: Ureterolithiasis, Pleural effusion, Hydronephrosis, Volume overload Forms Stand Alone Forms: My [facility] Prescriptions Prescriptions: No Action Eliquis 5 mg tablet 5 mg PO BID Qty: 180 3RF omeprazole 40 mg capsule,delayed release(DR/EC) 40 mg PO BID Qty: 180 1RF escitalopram oxalate [Lexapro] 10 mg tablet 10 mg PO HS Qty: 90 3RF cholecalciferol (vitamin D3) 50 mcg (2,000 unit) capsule 50 mcg PO QAM amlodipine 10 mg tablet 10 mg PO DAILY Qty: 30 11RF rosuvastatin 10 mg tablet 10 mg PO DAILY Qty: 30 11RF gabapentin 100 mg capsule 100 mg PO TID Qty: 90 2RF folic acid 400 mcg Tablet 0.4 mg PO QAM calcium acetate(phosphat bind) 667 mg Capsule 667 mg PO TIDM Qty: 90 3RF carvedilol 25 mg tablet 25 mg PO BIDM Rx Instructions: must administer with a meal/food Referrals Referrals: Myranda Osorio MD [Primary Care Provider] -
[2023-02-28] MEDS ORDERED: ONDANSETRON INJ 2 MG/ML 2 ML VIAL IV PRN (23:18)
[2023-02-28] MEDS ORDERED: cefTRIAXone SODIUM 1,000 MG in DEXTROSE 5 % MINI-B 50 ML IV SCH (23:18)
[2023-02-28] MEDS ORDERED: SODIUM CHLORIDE 0.9% 1,000 ML IV SCH (23:18)
[2023-02-28] MEDS ORDERED: MoRPHine SULFATE 2 MG/ML CARP IV PRN (23:34)
[2023-03-01] MEDS: cefTRIAXone SODIUM 2,000 MG in DEXTROSE 5 % MINI-B 50 ML IV SCH ×2 (00:03→21:47)
[2023-03-01] MEDS: PANTOprazole 40 MG TAB PO SCH ×3 (00:03→21:00)
[2023-03-01] MEDS: ESCITALOPRAM OXALATE 10 MG TAB PO SCH ×2 (01:11→21:00)
[2023-03-01 07:11] LABS: Basophils # (auto) 0.05 K/uL (0.00-0.20); Basophils % (auto) 1.1 %; Eosinophils # (auto) 0.15 K/uL (0.00-0.50); Eosinophils % (auto) 3.2 %; Hematocrit (blood only) 34.6 % (42.0-52.0); Hemoglobin 10.6 g/dl (14.0-18.0); Immature Granulocytes # (auto) 0.02 K/uL (0.01-0.20); Immature Granulocytes % (auto) 0.4 %; Lymphocytes # (auto) 0.54 K/uL (1.20-3.40); Lymphocytes % (auto) 11.5 %; Mean Corpuscular Hemoglobin 27.5 pg (25.0-34.0); Mean Corpuscular Hgb Conc 30.6 g/dL (32.0-36.0); Mean Corpuscular Volume 89.6 fL (80.0-100.0); Mean Platelet Volume 12.3 fL (9.4-12.4); Monocytes # (auto) 0.49 K/uL (0.11-0.59); Monocytes % (auto) 10.4 %; Neutrophils # (auto) 3.45 K/uL (1.40-6.50); Neutrophils % (auto) 73.4 %; Platelet Count 145 K/uL (130-400); RDW Coefficient of Variation 16.5 % (11.5-14.5); RDW Standard Deviation 53.8 fL (36.4-46.3); Red Blood Count 3.86 M/uL (4.70-6.10)
[2023-03-01 07:36] LABS: Albumin Level 2.7 gm/dl (3.4-5.0); BUN Creatinine Ratio 7.5 (10-20); Creatinine Clr Calc Pharmacy 17.7 ml/min; Est GFR (African American) 14.3 ml/min; Est GFR (Non-African American) 12.3 ml/min; Magnesium 1.7 mg/dl (1.7-2.4); Phosphorus 2.6 mg/dl (2.5-4.9); Potassium 3.4 mmol/L (3.5-5.1)
[2023-03-01] MEDS: ACETAMINOPHEN 1000 MG/100 ML IV IV PRN ×2 (08:08→18:46)
[2023-03-01] MEDS: carvediloL 25 MG TAB PO SCH ×2 (08:08→18:30)
[2023-03-01] MEDS: GABAPENTIN 100 MG CAP PO SCH ×3 (08:08→20:59)
[2023-03-01] MEDS: FOLIC ACID 400 MCG TAB PO SCH (08:08)
--- NOTE | 2023-03-01 08:28 | Urology Progress Note ---
Date of Service March 01, 2023 Assessment & Plan (1) Calculus of proximal right ureter: (2) Hydronephrosis of right kidney: Plan: Follow-up of right proximal ureteral calculus Patient afebrile and hemodynamically stable Labs todaycreatinine 4.53, WBC 4.70, hemoglobin 10.6 Patient had HD yesterday No acute issues overnightdenies flank pain today We discussed options for stone management including observation vs surgical intervention with right ureteral stent placement while inpatient. Discussed stone treatment will be at a later date. Discussed outpatient surgical options with ESWL or ureteroscopy, laser lithotripsy, and stent placement if pain is co ntrolled. Procedures, success rates, risks, benefits and clinical courses reviewed. Ureteral stents were discussed as well as post-operative issues and pain management. After discussion, the patient would like to proceed with ureteral stent placement today. Will proceed to OR for cystoscopy, retrograde pyelogram and right ureteral stent placement. Risks and benefits of procedure to be reviewed with patient by Dr. Caban. Keep n.p.o. for procedure. Continue with Ceftriaxone preoperatively. Continue supportive care and medical management per hospital medicine service. will follow. Admission and Anticipated Discharge Date Admission Date: February 28, 2023 Supervising Physician Co-Signing Physician Notes Reviewed imaging. Patient stopped making urine last week. Currently asymptomatic but would like stone treated. Plan for right stent placement today. Subjective Patient seen and examined at bedside, chart reviewed No acute issues overnight Denies flank pain No nausea or vomiting No fever or chills Denies urine output Currently NPO Review of Systems Constitutional: as per Subjective / HPI Gastrointestinal: as per Subjective / HPI Genitourinary: + as per Subjective / HPI Physical Exam Constitutional: comfortable; no acute distress Eyes: no scleral abnormality Respiratory: normal respiratory effort; no respiratory distress and no labored breathing Cardiovascular: Extremities: + edema (b/l lower extremity edema) Gastrointestinal (Abdomen): Inspection/Auscultation: abdomen normal to inspection; abdomen not distended Musculoskeletal: Head/Neck/Chest: normocephalic Skin: no visible rashes Neurologic: moves all extremities and awake Psychiatric: Orientation: alert and oriented x 3 Results & Data Vital Signs (Past 12 Hours) Vital Signs Temp Pulse Pulse Resp BP Pulse Ox O2 Del Method 03/01/23 07:22 36.9 C 67 18 161/77 H 94 Nasal Cannula 03/01/23 01:25 Nasal Cannula 03/01/23 00:09 52 L 147/70 H 02/28/23 23:18 36.6 C 70 18 149/84 H 96 Nasal Cannula 02/28/23 22:00 Nasal Cannula 02/28/23 21:05 89 L Room Air 02/28/23 20:33 69 18 139/72 91 Room Air O2 Flow Rate 03/01/23 07:22 2 03/01/23 01:25 1 03/01/23 00:09 02/28/23 23:18 1 02/28/23 22:00 2 02/28/23 21:05 02/28/23 20:33 PG Care Time/CCT Total # of Minutes Spent Total Time Spent with Patient: Total time spent is greater than 50% in coordination of care (as documented) at patient's floor/unit and/or counseling patient: Coding Level of Care Code 13803 SUB INP/OBS CARE 2/35MIN Diagnoses Calculus of proximal right ureter N20.1 Hydronephrosis of right kidney N13.30
--- NOTE | 2023-03-01 09:48 | Nephrology Consultation ---
Date of Consultation March 01, 2023 Assessment & Plan (1) Acute renal failure: WILLIAM requiring hemodialysis. No signs of renal recovery. On HD since January 31. WILLIAM attributed to ATN. Atrophic right kidney. Notable calcific vascular disease on imaging. Prognosis for recovery is poor. Sinan has been relatively oliguric or anuric. Volume status acceptable. Notable 3rd spacing of fluids and pleural effusion, however no indication for emergent HD today. Electrolytes controlled. Volume status is improving with TTS treatments. Clearance acceptable. Plan next HD tomorrow. Renal diet - low in sodium. Daily fluid restriction <1.2 L. Repeat metabolic profile tomorrow AM. Medications are appropriate dosed for kidney dysfunction. (2) Hydronephrosis of right kidney: No pain. No signs of infection. Urology planning URS and LL. (3) Pleural effusion: Relatively asymptomatic. Defer management to primary service. Will continue to challenge UF with HD as tolerated. (4) Calculus of proximal right ureter: Urology consultation and imaging reviewed. (5) Anemia: Chronic, stable. JOSE EDUARDO therapy with HD. No signs of persistent blood loss since recent hospitalization. History of Present Illness Reason for Consultation: ESRD on HD,kidney stone,volume overload Requesting Physician: Yesi Denton MD Attending Physician: Yesi Denton MD History of Present Illness Mr. Sinan Ibarra is a 68 year-old male with a complex medical history including coronary artery disease s/p CABG, atrial fibrillation, aortic stenosis, cirrhosis, CKD, and history of nephrolithiasis. He was admitted to [facility] in January with acute blood loss anemia due to GI bleed. Hospitalization complicated by acute on chronic kidney injury. Unfortunately, Sinan never recovered kidney function and progressed to dialysis dependence. TDC was placed on 01/31/23 and first HD treatment provided same day. I met Sinan during the hospitalization. He otherwise follows with Dr. Regan. Sinan has been maintained on IHD at [facility] in [place] under Dr. Regan's care. He receives dialysis on a TTS schedule and has been tolerating treatments well. He completed treatment yesterday without complications. Clearance has been at goal. Unfortunately, there has been no evidence of kidney recovery. A 24 hour urine completed last week demonstrated a creatinine clearance of <5 ml/min with 200 ml of net urine. Sinan was notable volume overloaded at the start of HD. This has been improving with UF. His EDW has been steadily challenged. IDWG acceptable. Weight down from 93.5 to 91.5 kg post HD in the past few weeks. Unfortunately, urine output has dropped off. Sinan was referred to [facility] for evaluation when he reported becoming anuric. Imaging demonstrates 2 large stones in the right kidney. There is a proximally obstructing stone for which urologic intervention is planned. Thankfully, there is no evidence of infection. Sinan denies notable pain or discomfort. Sinan was seen and evaluated in his hospital room this morning. He was resting comfortably in bed. He denies any dyspnea. He is oxygenating well on room air. I discussed recent history with staff at [facility]. Allergies Allergy/AdvReac Type Severity Reaction Status Date / Time fluoxetine Allergy Intermediate rash Verified 01/31/23 08:40 tramadol Allergy Intermediate RASH Verified 01/31/23 08:40 Home Medications Medication Instructions Recorded Confirmed Type folic acid 400 mcg tablet 0.4 mg PO QAM 10/04/20 02/28/23 History cholecalciferol (vitamin D3) 50 50 mcg PO QAM 10/04/21 02/28/23 History mcg (2,000 unit) capsule apixaban 5 mg tablet (Eliquis) 5 mg PO BID #180 tabs 03/22/22 02/28/23 Rx gabapentin 100 mg capsule 100 mg PO TID #90 caps 09/15/22 02/28/23 Rx omeprazole 40 mg capsule,delayed 40 mg PO BID #180 caps 01/02/23 02/28/23 Rx release calcium acetate(phosphat bind) 667 667 mg PO TIDM #90 caps 02/07/23 02/28/23 Rx mg capsule amlodipine 10 mg tablet 10 mg PO DAILY #30 tabs 02/11/23 02/28/23 Rx rosuvastatin 10 mg tablet 10 mg PO DAILY #30 tabs 02/11/23 02/28/23 Rx escitalopram oxalate 10 mg tablet 10 mg PO HS #90 tabs 02/15/23 02/28/23 Rx (Lexapro) carvedilol 25 mg tablet 25 mg PO BIDM 02/28/23 02/28/23 History Patient History Medical History Anemia HX Anxiety and depression Atrial fibrillation F/U DR MILTON MEDINA CAD (coronary artery disease) Chronic back pain Cirrhosis Closed fracture of transverse process of lumbar vertebra GERD without esophagitis Hemorrhoids History of anal fissures History of ITP Hyperlipidemia Idiopathic thrombocytopenic purpura (ITP) Kidney disease HX MILD Metabolic acidosis Neuropathy Ocular myasthenia gravis Osteoarthritis Pancytopenia Plantar fasciitis Splenomegaly Thrombocytopenia Surgical History H/O prostate biopsy History of cholecystectomy 11/24/20/TIFFANIE History of colonoscopy History of ERCP History of esophagogastroduodenoscopy (EGD) History of herniorrhaphy History of tooth extraction S/P aortic valve replacement with bioprosthetic valve 2014 AT [place] S/P CABG x 3 2014 AT [place] S/P laser cataract surgery Family History Sister Arthritis Mother Arthritis Cardiac disorder Hypertension Grandfather (Paternal) No problems noted. Grandfather (Maternal) Cancer Father Emphysema lung Brother Cardiac disorder Family/Other Breast cancer Other No family history of adverse response to anesthesia Denies family history of Ovarian cancer Prostate cancer Myocardial infarction Colorectal cancer Social History Smoking Status: Former smoker Tobacco Type: Smokeless Tobacco (Dip or Chew) Second Hand Exposure: Yes (as child); Do You Dip or Chew Tobacco: Yes; Hx Alcohol Use: Yes Alcohol type: beer Hx Substance Use: No Preferred Language: Scottish Communication Ability: Effective Visual Impairment: No Limitations Hearing Ability: Normal Spreader Box Operator Required: No Beliefs That Will Affect Care: None marital status: Current Living Situation: Spouse Current Living Situation Comment: 1 floor 4 HYUN current occupational status: retired How many Children do You have: 0 other: Former [employer] employee Feels Safe at Home: Yes Safety Concerns: Feels Safe At This Time Childhood Exposure to Second-Hand Smoke: Yes Dental Care, Regularly: No Physical Activity Frequency: Daily Physical Activity Frequency Comment: 30 min Seatbelt Use: always Sunscreen Use: No Assistive Devices: Denture - Upper, Denture - Lower, Glasses and Hearing Aid - Bilateral Review of Systems Review of Systems: All systems reviewed & are unremarkable except as noted in HPI & below Physical Exam Constitutional: WD/WN, vitals as above no acute distress Eyes: + anicteric sclerae ENMT: Ears: no hearing impairment Neck: normal visual inspection Respiratory: Auscultation: lungs clear to auscultation bilaterally Cardiovascular: Rate/Rhythm: regular rate and regular rhythm Extremities: + edema (2+ LE edema.) and + vascular access device (RT IJ TDC.) Musculoskeletal: Extremities: extremities normal to inspection Skin: no rashes, warm and dry Neurologic: no focal motor deficits Psychiatric: Orientation: alert and oriented x 3 Affect: euthymic affect Results & Data Vital Signs (Past 12 Hours) Vital Signs Temp Pulse Pulse Resp BP Pulse Ox O2 Del Method 03/01/23 07:30 Nasal Cannula 03/01/23 07:22 36.9 C 67 18 161/77 H 94 Nasal Cannula 03/01/23 01:25 Nasal Cannula 03/01/23 00:09 52 L 147/70 H 02/28/23 23:18 36.6 C 70 18 149/84 H 96 Nasal Cannula 02/28/23 22:00 Nasal Cannula O2 Flow Rate 03/01/23 07:30 2 03/01/23 07:22 2 03/01/23 01:25 1 03/01/23 00:09 02/28/23 23:18 1 02/28/23 22:00 2 Laboratory Results Laboratory Results - last 24 hr 02/28/23 02/28/23 03/01/23 16:12 16:12 06:51 WBC 5.94 4.70 L RBC 3.98 L 3.86 L Hgb 11.2 L 10.6 L Hct 35.3 L 34.6 L MCV 88.7 89.6 MCH 28.1 27.5 MCHC 31.7 L 30.6 L RDW Std Deviation 54.3 H 53.8 H RDW Coeff of Juan 16.6 H 16.5 H Plt Count 185 145 MPV 11.7 12.3 Immature Gran % (Auto) 0.2 0.4 Neut % (Auto) 76.2 73.4 Lymph % (Auto) 12.0 11.5 Grimes % (Auto) 8.9 10.4 Eos % (Auto) 1.7 3.2 Baso % (Auto) 1.0 1.1 Neut # (Auto) 4.53 3.45 Lymph # (Auto) 0.71 L 0.54 L Grimes # (Auto) 0.53 0.49 Eos # (Auto) 0.10 0.15 Baso # (Auto) 0.06 0.05 Immature Gran # (Auto) 0.01 0.02 Sodium 137 Potassium 3.5 Chloride 88 L Carbon Dioxide 34 H Anion Gap 15 H BUN 27 H Creatinine 3.64 H Est Cr Clr Drug Dosing Not Reportable Est GFR ( Amer) 18.6 Est GFR (Non-Af Amer) 16.0 BUN/Creatinine Ratio 7.4 L Glucose 111 H Calcium 8.7 Phosphorus Magnesium Total Bilirubin 0.4 AST 19 ALT 4 L Alkaline Phosphatase 70 Total Protein 6.4 Albumin 3.2 L Globulin 3.2 Albumin/Globulin Ratio 1.0 03/01/23 06:51 WBC RBC Hgb Hct MCV MCH MCHC RDW Std Deviation RDW Coeff of Juan Plt Count MPV Immature Gran % (Auto) Neut % (Auto) Lymph % (Auto) Grimes % (Auto) Eos % (Auto) Baso % (Auto) Neut # (Auto) Lymph # (Auto) Grimes # (Auto) Eos # (Auto) Baso # (Auto) Immature Gran # (Auto) Sodium 134 L Potassium 3.4 L Chloride 94 L Carbon Dioxide 33 H Anion Gap 7 BUN 34 H Creatinine 4.53 H* D Est Cr Clr Drug Dosing 17.7 Est GFR ( Amer) 14.3 Est GFR (Non-Af Amer) 12.3 BUN/Creatinine Ratio 7.5 L Glucose 107 H Calcium 8.0 L Phosphorus 2.6 Magnesium 1.7 Total Bilirubin AST ALT Alkaline Phosphatase Total Protein Albumin 2.7 L Globulin Albumin/Globulin Ratio Diagnostic Findings XR chest 1V portable 02/28/2023 Comparison: Comparison is made to chest radiograph 12/08/2021 FINDINGS: Dual lumen catheter is seen. Median sternotomy wires are seen. Cardiomegaly is noted. The aortic arch is calcified. Left greater than right lower lung airspace opacities are seen. Moderate left and mild right pleural effusion noted. IMPRESSION: 1. Left greater than right lower lung airspace opacities bilaterally without atelectasis, pneumonia, and/or aspiration. 2. Bilateral pleural effusions. CT ABDOMEN + PELVIS Without Contrast 02/28/2023 FINDINGS: Lung bases: See below. Pleural space: Moderate RIGHT and small LEFT pleural effusions. Airspace consolidation at the lung bases, likely atelectasis. Cardiomegaly. Sternotomy wires. Prosthetic aortic valve. ABDOMEN: Liver: Unremarkable. Gallbladder and bile ducts: Cholecystectomy. No ductal dilation. Pancreas: Unremarkable. No ductal dilation. Spleen: Mild splenomegaly. Adrenals: Unremarkable. No mass. Kidneys and ureters: Obstructing 9 mm RIGHT proximal ureter stone. Mild hydronephrosis of the RIGHT kidney. Nonobstructing 10 mm RIGHT lower pole renal stone. Stomach and bowel: Diverticulosis, without acute diverticulitis. No small bowel obstruction. No free intraperitoneal air. PELVIS: Appendix: No findings to suggest acute appendicitis. Bladder: Unremarkable. No stones. Reproductive: Unremarkable as visualized. ABDOMEN and PELVIS: Intraperitoneal space: Abdominal ascites accumulating in the pelvis. No free air. Bones/joints: Degenerative changes of the spine. No acute fracture. No dislocation. Soft tissues: Anasarca. Vasculature: Atherosclerotic changes of the aorta. No abdominal aortic aneurysm. Lymph nodes: Unremarkable. No enlarged lymph nodes. IMPRESSION: 1. Obstructing 9 mm RIGHT proximal ureter stone. Mild hydronephrosis of the RIGHT kidney. 2. Nonobstructing 10 mm RIGHT lower pole renal stone. ULTRASOUND KIDNEYS AND BLADDER 01/28/2023 COMPARISON STUDY: Abdominal CT dated 12/08/2021. Kidneys: The right kidney is atrophic and echogenic. The left kidney is normal in size and echotexture. The right kidney measures 7.2 cm in length and the left kidney measures 10.4 cm in length. There is no hydronephrosis. A 5 mm shadowing calculus is seen in the right lower pole. No shadowing calculi are identified on the left. A 1.5 cm cyst is seen on the right. There is no sonographic evidence of contour deforming renal mass lesion. No perinephric fluid is identified. Bladder: The bladder is partially decompressed and grossly unremarkable. Ureteral jets were not seen. Spleen: The spleen is enlarged measuring 14.0 cm in length. IMPRESSION: 1. The right kidney is atrophic and echogenic consistent with medical renal disease. 2. The left kidney is normal in size and without hydronephrosis. 3. Right-sided nephrolithiasis. 4. The bladder is partially decompressed and grossly unremarkable. 5. Splenomegaly. PG Care Time/CCT Total # of Minutes Spent Total Time Spent with Patient: Total time spent is greater than 50% in coordination of care (as documented) at patient's floor/unit and/or counseling patient: Coding Level of Care Code 27759 INT INP/OBS CARE MIN Diagnoses Acute renal failure N17.9 Hydronephrosis of right kidney N13.30 Pleural effusion J90 Calculus of proximal right ureter N20.1 Anemia D64.9 Anemia type: unspecified type (5) Anemia Anemia type: unspecified type Qualified Code(s): D64.9 - Anemia, unspecified
--- NOTE | 2023-03-01 10:02 | Anesthesiology Consultation ---
Date of Service March 01, 2023 Assessment & Plan Chart Review Chart Review: entry specialists initiated History Surgery Operation Date: 03/01/23 10:30 Proposed Procedures p Cystoscopy, Retrograde Pyelogram, Right Ureteral Stent Placement - Jonas Caban MD Height/Weight Height: 5 ft 10 in Weight: 94.1 kg Allergies Allergy/AdvReac Type Severity Reaction Status Date / Time fluoxetine Allergy Intermediate rash Verified 01/31/23 08:40 tramadol Allergy Intermediate RASH Verified 01/31/23 08:40 Medications Home Medications Medication Instructions Recorded Confirmed Last Taken folic acid 400 mcg tablet 0.4 mg PO QAM 10/04/20 02/28/23 01/25/23 cholecalciferol (vitamin D3) 50 50 mcg PO QAM 10/04/21 02/28/23 01/25/23 mcg (2,000 unit) capsule apixaban 5 mg tablet (Eliquis) 5 mg PO BID #180 tabs 03/22/22 02/28/23 01/25/23 08:00 gabapentin 100 mg capsule 100 mg PO TID #90 caps 09/15/22 02/28/23 01/25/23 14:00 omeprazole 40 mg capsule,delayed 40 mg PO BID #180 caps 01/02/23 02/28/23 01/25/23 08:00 release calcium acetate(phosphat bind) 667 667 mg PO TIDM #90 caps 02/07/23 02/28/23 Unknown mg capsule amlodipine 10 mg tablet 10 mg PO DAILY #30 tabs 02/11/23 02/28/23 Unknown rosuvastatin 10 mg tablet 10 mg PO DAILY #30 tabs 02/11/23 02/28/23 Unknown escitalopram oxalate 10 mg tablet 10 mg PO HS #90 tabs 02/15/23 02/28/23 Unknown (Lexapro) carvedilol 25 mg tablet 25 mg PO BIDM 02/28/23 02/28/23 Unknown Active Medications Generic Name Dose Route Start Last Admin Trade Name Freq PRN Reason Stop Dose Admin Acetaminophen 1,000 mg 02/28/23 23:18 03/01/23 08:08 Acetaminophen 1000 Mg/100 Ml Iv IV 03/03/23 23:17 1,000 mg Q8H PRN Administration Pain or Fever Carvedilol 25 mg 03/01/23 08:00 03/01/23 08:08 Carvedilol 25 Mg Tab PO 03/31/23 07:59 25 mg BIDM MIL Administration Escitalopram Oxalate 10 mg 03/01/23 00:45 03/01/23 01:11 Escitalopram Oxalate 10 Mg Tab PO 03/31/23 00:44 10 mg HS MIL Administration Folic Acid 400 mcg 03/01/23 09:00 03/01/23 08:08 Folic Acid 400 Mcg Tab PO 03/31/23 08:59 400 mcg QAM MIL Administration Gabapentin 100 mg 03/01/23 09:00 03/01/23 08:08 Gabapentin 100 Mg Cap PO 03/31/23 08:59 100 mg TID MIL Administration Ceftriaxone Sodium 2,000 mg/ 50 mls @ 100 mls/hr 02/28/23 21:00 03/01/23 00:33 Dextrose IV 03/10/23 20:59 Infused Q24H MIL Infusion Pantoprazole Sodium 40 mg 02/28/23 23:18 03/01/23 08:08 Pantoprazole 40 Mg Tab PO 03/30/23 23:17 40 mg BID MIL Administration Past Medical History Medical History Anemia HX Anxiety and depression Atrial fibrillation F/U DR FRANSICO MEDINA CAD (coronary artery disease) Chronic back pain Cirrhosis Closed fracture of transverse process of lumbar vertebra GERD without esophagitis Hemorrhoids History of anal fissures History of ITP Hyperlipidemia Idiopathic thrombocytopenic purpura (ITP) Kidney disease HX MILD Metabolic acidosis Neuropathy Ocular myasthenia gravis Osteoarthritis Pancytopenia Plantar fasciitis Splenomegaly Thrombocytopenia Past Family History Family History Sister Arthritis Mother Arthritis Cardiac disorder Hypertension Grandfather (Paternal) No problems noted. Grandfather (Maternal) Cancer Father Emphysema lung Brother Cardiac disorder Family/Other Breast cancer Other No family history of adverse response to anesthesia Denies family history of Ovarian cancer Prostate cancer Myocardial infarction Colorectal cancer Past Surgical History Surgical History H/O prostate biopsy History of cholecystectomy 11/24/20/TIFFANIE History of colonoscopy History of ERCP History of esophagogastroduodenoscopy (EGD) History of herniorrhaphy History of tooth extraction S/P aortic valve replacement with bioprosthetic valve 2015 AT [facility] S/P CABG x 3 2015 AT [facility] S/P laser cataract surgery Social History Smoking Status: Former smoker tobacco type: cigarettes Do You Dip or Chew Tobacco: Yes Hx Alcohol Use: Yes Alcohol type: beer alcohol intake frequency: 0-2 drinks per day Hx Substance Use: No substance use type: does not use Physical Exam Vital Signs Last Vital Signs Temp 98.4 F 03/01/23 07:22 Pulse 67 03/01/23 07:22 Resp 18 03/01/23 07:22 BP 161/77 H 03/01/23 07:22 Pulse Ox 94 03/01/23 07:22 O2 Del Method Nasal Cannula 03/01/23 07:30 O2 Flow Rate 2 03/01/23 07:30 Testing Laboratory Results 03/01/23 06:51 03/01/23 06:51 Electrocardiogram Date: 01/25/23 Atrial fibrillation, rate [address] & T wave abnormality, consider inferior ischemia Abnormal ECG When compared with ECG of 24-DEC-2021 14:12, T wave inversion no longer evident in Anterior leads Confirmed by Fransico Cronin ([id number]) on 01/26/2023 6:53:12 PM Chest X-Ray Date: 02/06/23 IMPRESSION: 1. Left greater than right lower lung airspace opacities bilaterally without atelectasis, pneumonia, and/or aspiration. 2. Bilateral pleural effusions. Echocardiogram Date: 01/09/23 EF 60-64% RV cavity size is enlarged RV cavity cavity is mod dilated RV systolic function is mildly reduced AV bioprosthetic present AV prosthesis stenosis is absent Significant AV prosthesis regurgitation is absent Mild MR is present Elevated right atrial pressure of 15mmHg Estimated PASP is 53mm Hg
--- NOTE | 2023-03-01 15:32 | Hospitalist Progress Note ---
Date of Service March 01, 2023 Assessment & Plan (1) Calculus of proximal right ureter: (2) Hydronephrosis of right kidney: (3) End-stage renal disease on hemodialysis: (4) DVT (deep venous thrombosis): (5) (HFpEF) heart failure with preserved ejection fraction: (6) Hypertension: (7) CAD (coronary artery disease): (8) S/P CABG x 3: (9) S/P aortic valve replacement with bioprosthetic valve: (10) History of ITP: Plan 9 mm proximal right ureteral calculus/mild hydroureteronephrosis- Not able to void--> awaiting ureteral stent placement by Urology today Ceftriaxone 1 g IV every 24 hours ordered in case of infection but no leukocytosis or fever. No UA collected due to anuria Tylenol 1 g IV every 6 hours as needed for mild pain or fever dc morphine due to ESRD Zofran 4 mg IV every 6 hours as needed Consult urology appreciated ESRD on HD- consult Nephro for HD management in hospital Still with significant lower extremity edema and pleural effusions CAD/hypertension/HFpEF/atrial fibrillation/status post AVR with bioprosthetic valve/status post CABG x3- Last apixaban dose was in the morning, will hold until after procedure and resume once cleared with urology ok to restart amlodipine as BPs elevated Continue carvedilol ANemia-of chronic kidney disease-managed by [facility] Admission and Anticipated Discharge Date Admission Date: February 28, 2023 Subjective Pt reports still no urination since yesterday AM. No abd pain or back pain. Denies CP, SOB. Feels like there is fluid in his abdomen and leg swelling Headed for OR shortly for ureteral stent Physical Exam Constitutional: WD/WN, vitals as above Respiratory: normal respiratory effort; no cough Auscultation: + diminished lung sounds (at bases ); no crackles, no rhonchi and no wheezes Cardiovascular: Rate/Rhythm: regular rate and regular rhythm Heart Sounds: + murmur (2/6 RUBI at RUSB) Chest (Breasts): Chest: + vascular access device or port (Right tunneled IJ catheter) Gastrointestinal (Abdomen): normal bowel sounds, soft, nontender, no hepatosplenomegaly Results & Data Results & Data Vital Signs (Past 12 Hours) Vital Signs Temp Pulse Resp BP Pulse Ox O2 Del Method O2 Flow Rate 03/01/23 14:54 36.8 C 85 16 152/78 H 90 Nasal Cannula 2 03/01/23 07:30 Nasal Cannula 2 03/01/23 07:22 36.9 C 67 18 161/77 H 94 Nasal Cannula 2 Laboratory Results CBC, BMP reviewed PG Care Time/CCT Total # of Minutes Spent Total Time Spent with Patient: Total time spent is greater than 50% in coordination of care (as documented) at patient's floor/unit and/or counseling patient: Coding Level of Care Code 91874 SUB INP/OBS CARE 2/35MIN Diagnoses Calculus of proximal right ureter N20.1 Hydronephrosis of right kidney N13.30 End-stage renal disease on hemodialysis N18.6; Z99.2 DVT (deep venous thrombosis) I82.409 (HFpEF) heart failure with preserved ejection fraction I50.30 Hypertension I10 CAD (coronary artery disease) I25.10 S/P CABG x 3 Z95.1 S/P aortic valve replacement with bioprosthetic valve Z95.3 History of ITP Z86.2
[2023-03-01] MEDS ORDERED: MIDAZOLAM HCL 1 MG/ML 2ML VIAL ONE (16:42)
[2023-03-01] MEDS ORDERED: KETAMINE 50 MG/5 ML SYRINGE ONE (16:42)
[2023-03-01] MEDS ORDERED: fentaNYL citrate PF 100 MCG/2 ML VIAL ONE (16:52)
--- NOTE | 2023-03-01 17:01 | Post Operative Brief Note ---
PG Immediate Post Op with CF Date of Surgery March 01, 2023 Pre & Post Diagnosis Right urolithiasis Operation Date: 03/01/23 10:30 <No data on this case meets the specified criteria> Right urolithiasis I identified the patient and participated in the time-out.: Yes Procedure Cystoscopy, right retrograde pyelogram, right stent placement Operation Date: 03/01/23 10:30 <No data on this case meets the specified criteria> Surgeon Jonas Caban MD Paving Block Cutter None Estimated Blood Loss 0 Findings Consistent with Post-Op Diagnosis Anesthesia Type MAC Complications none
[2023-03-01] MEDS ORDERED: DIATRIZOATE MEGLUMINE 30% 100ML VIAL INSTIL ONE (17:02)
--- NOTE | 2023-03-01 17:03 | Operative Report ---
PG Post Operative Report Pre & Post Diagnosis Right urolithiasis Operation Date: 03/01/23 10:30 <No data on this case meets the specified criteria> Right urolithiasis I identified the patient and participated in the time-out.: Yes Procedure Cystoscopy, right retrograde pyelogram with radiographic interpretation, right ureteral stent placement Operation Date: 03/01/23 10:30 <No data on this case meets the specified criteria> Surgeon Jonas Caban MD Acid Correction Hand None Estimated Blood Loss 0 Findings Consistent with Post-Op Diagnosis Right ureteral stent in appropriate position. Normal bladder. Retrograde showed no filling defects in distal ureter Specimens None Drains 6 Canadian by 26 cm right ureteral stent Anesthesia Type MAC Complications none Indications 68-year-old male with a history of CKD with recent and urea. He is currently on dialysis. CT scan showed a right proximal obstructing ureteral calculus with hydronephrosis. Otherwise stable. Risks and benefits discussed and patient opted for stent placement. Description of Procedure After informed consent was obtained, the patient was transported to the operative suite. MAC anesthesia was induced. They were placed in dorsal lithotomy position and prepped and draped in sterile fashion. They received preoperative ceftriaxone. An appropriate surgical timeout was performed. A rigid cystoscope was inserted per urethra into the bladder. I turned my attention to the right ureteral orifice. A 5 Canadian open-ended catheter was intubated in the ureteral orifice and a retrograde pyelogram was shot which showed no filling defects in the distal ureter. Contrast did not move past the stone in the proximal ureter. A sensor wire was advanced in the upper pole of the kidney and confirmed fluoroscopically. I deployed a 6 Canadian by 26 cm right ureteral stent with a good proximal coil in the kidney confirmed fluoroscopically and a good distal coil confirmed by direct visualization. Bladder was emptied and scope was removed. This concluded the end of the case. All counts were correct at the end of the case. I was present, scrubbed and actively participated for the entire the procedure. I attest to the content of the Intraoperative Record and any orders documented therein. Any exceptions are noted below.
--- NOTE | 2023-03-01 17:35 | Anesthesiology Progress Note ---
Date of Service March 01, 2023 Anesthesia Post Procedure Vital Signs Vital Signs: Temp Pulse Pulse Resp BP Pulse Ox O2 Del Method 03/01/23 17:25 78 22 156/73 H 92 Nasal Cannula 03/01/23 17:15 69 22 161/67 H 92 Oxymask 03/01/23 17:09 97.5 F L 76 16 167/73 H 90 Oxymask 03/01/23 15:40 98.1 F 81 18 142/79 H 93 Room Air 03/01/23 14:54 98.2 F 85 16 152/78 H 90 Nasal Cannula 03/01/23 07:30 Nasal Cannula 03/01/23 07:22 98.4 F 67 18 161/77 H 94 Nasal Cannula 03/01/23 01:25 Nasal Cannula 03/01/23 00:09 52 L 147/70 H 02/28/23 23:18 97.9 F 70 18 149/84 H 96 Nasal Cannula 02/28/23 22:00 Nasal Cannula 02/28/23 21:05 89 L Room Air 02/28/23 20:33 69 18 139/72 91 Room Air O2 Flow Rate 03/01/23 17:25 3 03/01/23 17:15 9 03/01/23 17:09 6 03/01/23 15:40 03/01/23 14:54 2 03/01/23 07:30 2 03/01/23 07:22 2 03/01/23 01:25 1 03/01/23 00:09 02/28/23 23:18 1 02/28/23 22:00 2 02/28/23 21:05 02/28/23 20:33 Pain Intensity Left Knee: Pain Intensity: 5 Transfer of Care Handoff Completed per policy Notes Mental Status: alert / awake / arousable and participated in evaluation Patient Amnestic to Procedure: Yes Nausea / Vomiting: adequately controlled Pain: adequately controlled Airway Patency, RR, SpO2: stable & adequate BP & HR: stable & adequate Hydration State: stable & adequate Anesthetic Complications: no major complications apparent and Pt Satisfied with anesthetic care
[2023-03-01] MEDS: CALCIUM ACETATE 667 MG CAP/TAB PO SCH (18:30)
--- NOTE | 2023-03-01 18:38 | Fluoroscopy Report ---
FL retrograde includes kub CLINICAL HISTORY: RIGHTright-sided cystourethrogram COMPARISON STUDY: CT 02/28/2023 FLUOROSCOPY TIME: 12.5 seconds FLUOROSCOPY IMAGES: 2 EXPOSURE DOSE: 3.67 mGy FINDINGS: A right-sided ureteroscope is present. Retrograde injection of contrast into the right uret er. Subsequent images demonstrate placement of a right ureteral stent, proximal portion within satisf actory positioning, distal portion is not imaged. Cholecystectomy. IMPRESSION: Fluoroscopic assistance as above. ACT 112: Negative or not required by law. Electronically signed by: Wenceslao Perez M.D. 03/01/2023 6:37 PM
[2023-03-01] MEDS: APIXABAN 5 MG TABLET PO SCH (20:59)
[2023-03-01] MEDS ORDERED: ESCITALOPRAM OXALATE 10 MG TAB PO SCH (21:00)
[2023-03-02] MEDS ORDERED: HYDROmorphone INJ 0.5 MG/0.5 ML SYR IV STA (01:51)
--- NOTE | 2023-03-02 07:35 | Urology Progress Note ---
Date of Service March 02, 2023 Assessment & Plan (1) Calculus of proximal right ureter: (2) Hydronephrosis of right kidney: Plan: Follow-up of right proximal ureteral calculus - Pt POD#1 s/p cystoscopy, retrograde pyelogram, and right ureteral placement - Doing well, progressing as expected - Afebrile, hemodynamically stable, no new labs at time of visit this am - Tolerating right ureteral stent with minimal bother - Okay to d/c from perspective when medically stable - Recommend d/c with course of Tamsulosin, prn Pyridium and prn Oxybutynin for stent management - Expected clinical course reviewed, all questions answered - Will arrange outpatient follow-up with our service to discuss definitive stone management Admission and Anticipated Discharge Date Admission Date: February 28, 2023 Subjective Patient seen and examined at bedside this morning, chart reviewed No acute issues overnight Reports some flank discomfort yesterday evening, relieved by pain medication No flank discomfort this morning Reports he voided and notes hematuria post procedure Denies nausea, vomiting, fever or chills Review of Systems Constitutional: as per Subjective / HPI Gastrointestinal: as per Subjective / HPI Genitourinary: + as per Subjective / HPI Physical Exam Physical Exam: General: no acute distress HEENT: Normocephalic Pulmonary: Nonlabored respirations Abdomen: Nondistended Extremities: Moves all 4 spontaneously Neuro: No gross deficits Psych: alert and oriented, normal mood Skin: Warm, dry, no rashes noted Results & Data Vital Signs (Past 12 Hours) Vital Signs Temp Pulse Resp BP Pulse Ox O2 Del Method O2 Flow Rate 03/02/23 07:21 36.5 C 72 16 166/76 H 94 Nasal Cannula 2 03/02/23 04:30 36.4 C L 77 16 148/90 H 94 Nasal Cannula 2 03/02/23 00:37 36.3 C L 77 18 130/73 94 Nasal Cannula 2 03/01/23 21:00 Nasal Cannula 2 03/01/23 20:50 36.4 C L 82 16 143/82 H 96 Nasal Cannula 2 03/01/23 19:50 36.4 C L 77 16 136/80 94 Nasal Cannula 2 PG Care Time/CCT Total # of Minutes Spent Total Time Spent with Patient: Total time spent is greater than 50% in coordination of care (as documented) at patient's floor/unit and/or counseling patient: Coding Level of Care Code 12980 SUB INP/OBS CARE 06/15MIN Diagnoses Calculus of proximal right ureter N20.1 Hydronephrosis of right kidney N13.30
[2023-03-02 07:46] LABS: Basophils # (auto) 0.06 K/uL (0.00-0.20); Basophils % (auto) 1.3 %; Eosinophils # (auto) 0.19 K/uL (0.00-0.50); Hematocrit (blood only) 38.2 % (42.0-52.0); Hemoglobin 11.4 g/dl (14.0-18.0); Immature Granulocytes # (auto) 0.02 K/uL (0.01-0.20); Immature Granulocytes % (auto) 0.4 %; Lymphocytes # (auto) 0.61 K/uL (1.20-3.40); Lymphocytes % (auto) 12.7 %; Mean Corpuscular Hemoglobin 27.3 pg (25.0-34.0); Mean Corpuscular Hgb Conc 29.8 g/dL (32.0-36.0); Mean Corpuscular Volume 91.6 fL (80.0-100.0); Mean Platelet Volume 12.3 fL (9.4-12.4); Monocytes # (auto) 0.45 K/uL (0.11-0.59); Monocytes % (auto) 9.4 %; Neutrophils # (auto) 3.46 K/uL (1.40-6.50); Neutrophils % (auto) 72.2 %; Platelet Count 133 K/uL (130-400); RDW Coefficient of Variation 15.9 % (11.5-14.5); RDW Standard Deviation 53.7 fL (36.4-46.3); Red Blood Count 4.17 M/uL (4.70-6.10); White Blood Count 4.79 K/ul (4.8-10.8)
[2023-03-02 08:13] LABS: Albumin Level 2.7 gm/dl (3.4-5.0); BUN Creatinine Ratio 7.1 (10-20); Calcium 8.6 mg/dl (8.6-10.3); Creatinine Clr Calc Pharmacy 13.5 ml/min; Est GFR (African American) 10.3 ml/min; Est GFR (Non-African American) 8.9 ml/min; Magnesium 1.7 mg/dl (1.7-2.4); Phosphorus 4.1 mg/dl (2.5-4.9); Potassium 3.6 mmol/L (3.5-5.1)
[2023-03-02] MEDS: carvediloL 25 MG TAB PO SCH ×2 (08:17→16:57)
[2023-03-02] MEDS: GABAPENTIN 100 MG CAP PO SCH ×2 (08:17→14:40)
[2023-03-02] MEDS: FOLIC ACID 400 MCG TAB PO SCH (08:17)
[2023-03-02] MEDS: APIXABAN 5 MG TABLET PO SCH (08:17)
[2023-03-02] MEDS: PANTOprazole 40 MG TAB PO SCH (08:17)
[2023-03-02] MEDS: CALCIUM ACETATE 667 MG CAP/TAB PO SCH ×3 (08:17→16:57)
[2023-03-02 08:41] LABS: Appearance Urine Turbid (Clear); Bilirubin Urine 1+ (Negative); Blood Urine 3+ (Negative); Glucose Urine UA Negative (Negative); Ketones Urine Trace (Negative); Leukocyte Esterase Urine 3+ (Negative); Nitrite Urine Positive (Negative); Protein Urine 3+ (Negative); Urobilinogen Urine Negative (Negative); pH Urine 8.5 (4.5-7.5)
[2023-03-02 08:42] LABS: Color Urine Red
[2023-03-02 08:49] LABS: Bacteria Urine 2+ (Negative); Epithelial Cell Urine 0-5 /lpf (0-5); Hyaline Casts Urine 0-5 /lpf (0-5); RBC Urine >30 /hpf (0-4); WBC Urine >30 /hpf (0-5)
[2023-03-02] MEDS ORDERED: amLODIPine BESYLATE 5 MG TAB PO SCH (09:00)
[2023-03-02] MEDS ORDERED: ROSUVASTATIN CALCIUM 10 MG TAB PO SCH (09:00)
--- NOTE | 2023-03-02 12:58 | Nephrology Progress Note ---
Date of Service March 02, 2023 Assessment & Plan (1) Acute renal failure: Plan: WILLIAM requiring hemodialysis. No signs of renal recovery. On HD since January 31. WILLIAM attributed to ATN. Atrophic right kidney. Notable calcific vascular disease on imaging. Sinan has been relatively oliguric or anuric. Volume status hypervolemic. Orders for HD today entered into the EHR and reviewed with HD RN. Continue HD TTS post discharge. Renal diet - low in sodium. Daily fluid restriction <1.2 L. Medications are appropriate dosed for kidney dysfunction. (2) Hydronephrosis of right kidney: Plan: No pain. No signs of infection. s/p stent placement POD #1. (3) Pleural effusion: Plan: Relatively asymptomatic. Defer management to primary service. Will continue to challenge UF with HD as tolerated. (4) Calculus of proximal right ureter: Plan: Urology consultation and imaging reviewed. (5) Anemia: Plan: Chronic, stable. JOSE EDUARDO therapy with HD. No signs of persistent blood loss since recent hospitalization. Admission and Anticipated Discharge Date Admission Date: February 28, 2023 Subjective s/p Ureteral stent placement without complications. No complaints this AM. No fevers or chills. Denies pain. Review of Systems Review of Systems: All systems reviewed & are unremarkable except as noted in HPI & below Physical Exam Constitutional: WD/WN, vitals as above no acute distress Eyes: + anicteric sclerae ENMT: Ears: no hearing impairment Neck: normal visual inspection Respiratory: Auscultation: lungs clear to auscultation bilaterally Cardiovascular: Rate/Rhythm: regular rate and regular rhythm Extremities: + edema (2+ LE edema.) and + vascular access device (RT IJ TDC.) Musculoskeletal: Extremities: extremities normal to inspection Skin: no rashes, warm and dry Neurologic: no focal motor deficits Psychiatric: Orientation: alert and oriented x 3 Affect: euthymic affect Results & Data Vital Signs (Past 12 Hours) Vital Signs Temp Pulse Pulse Pulse Resp BP BP 03/02/23 12:00 73 156/79 H 03/02/23 11:30 78 157/83 H 03/02/23 11:00 74 133/73 03/02/23 10:30 71 138/99 03/02/23 10:23 36.5 C 72 03/02/23 08:05 03/02/23 07:21 36.5 C 72 16 166/76 H 03/02/23 04:30 36.4 C L 77 16 148/90 H Pulse Ox O2 Del Method O2 Flow Rate 03/02/23 12:00 03/02/23 11:30 03/02/23 11:00 03/02/23 10:30 03/02/23 10:23 03/02/23 08:05 Nasal Cannula 1 03/02/23 07:21 94 Nasal Cannula 2 03/02/23 04:30 94 Nasal Cannula 2 Laboratory Results Laboratory Results - last 24 hr 03/01/23 03/02/23 03/02/23 21:30 07:05 07:05 WBC 4.79 L RBC 4.17 L Hgb 11.4 L Hct 38.2 L MCV 91.6 MCH 27.3 MCHC 29.8 L RDW Std Deviation 53.7 H RDW Coeff of Juan 15.9 H Plt Count 133 MPV 12.3 Immature Gran % (Auto) 0.4 Neut % (Auto) 72.2 Lymph % (Auto) 12.7 [place] % (Auto) 9.4 Eos % (Auto) 4.0 Baso % (Auto) 1.3 Neut # (Auto) 3.46 Lymph # (Auto) 0.61 L [place] # (Auto) 0.45 Eos # (Auto) 0.19 Baso # (Auto) 0.06 Immature Gran # (Auto) 0.02 Sodium 134 L Potassium 3.6 Chloride 94 L Carbon Dioxide 31 Anion Gap 9 BUN 42 H Creatinine 5.94 H* D Est Cr Clr Drug Dosing 13.5 Est GFR ( Amer) 10.3 Est GFR (Non-Af Amer) 8.9 BUN/Creatinine Ratio 7.1 L Glucose 97 Calcium 8.6 Phosphorus 4.1 D Magnesium 1.7 Albumin 2.7 L Urine Color Urine Appearance Urine pH Ur Specific [place]mo Urine Protein Urine Glucose (UA) Urine Ketones Urine Blood Urine Nitrite Urine Bilirubin Urine Urobilinogen Ur Leukocyte Esterase Urine RBC Urine WBC Ur Epithelial Cells Urine Bacteria Hyaline Casts Nasal Screen MRSA (PCR) Negative 03/02/23 08:23 WBC RBC Hgb Hct MCV MCH MCHC RDW Std Deviation RDW Coeff of Juan Plt Count MPV Immature Gran % (Auto) Neut % (Auto) Lymph % (Auto) [place] % (Auto) Eos % (Auto) Baso % (Auto) Neut # (Auto) Lymph # (Auto) [place] # (Auto) Eos # (Auto) Baso # (Auto) Immature Gran # (Auto) Sodium Potassium Chloride Carbon Dioxide Anion Gap BUN Creatinine Est Cr Clr Drug Dosing Est GFR ( Amer) Est GFR (Non-Af Amer) BUN/Creatinine Ratio Glucose Calcium Phosphorus Magnesium Albumin Urine Color Red Urine Appearance Turbid A Urine pH 8.5 H Ur Specific [place] 1.020 Urine Protein 3+ H Urine Glucose (UA) Negative Urine Ketones Trace H Urine Blood 3+ H Urine Nitrite Positive A Urine Bilirubin 1+ H Urine Urobilinogen Negative Ur Leukocyte Esterase 3+ H Urine RBC >30 H Urine WBC >30 H Ur Epithelial Cells 0-5 Urine Bacteria 2+ H Hyaline Casts 0-5 Nasal Screen MRSA (PCR) PG Care Time/CCT Total # of Minutes Spent Total Time Spent with Patient: Total time spent is greater than 50% in coordination of care (as documented) at patient's floor/unit and/or counseling patient: Coding Level of Care Code 05966 SUB INP/OBS CARE 3/50MIN Diagnoses Acute renal failure N17.9 Hydronephrosis of right kidney N13.30 Pleural effusion J90 Calculus of proximal right ureter N20.1 Anemia D64.9 Anemia type: unspecified type (5) Anemia Anemia type: unspecified type Qualified Code(s): D64.9 - Anemia, unspecified
[2023-03-02 14:39] VITALS: BP 133/77; RESP 18; TEMP 97.9; O2SAT 93
[2023-03-02 14:41] VITALS: PULSE 78
--- NOTE | 2023-03-02 16:00 | Discharge Summary ---
Discharge Summary Date of Service March 02, 2023 Notes For Next Care Provider Medication Changes From Visit Cipro 500mg po daily x 7 days Flomax 0.4mg po hs Oxybutynin 5mg daily prn stent pains Admission HPI Per Admitting Provider The patient is a 68-year-old male with a past medical history including ESRD on HD, DVT, metabolic acidosis, acute GI bleeding, symptomatic anemia, right ventricular failure, HFpEF, hypertension, anxiety, aortic stenosis, CAD, GERD without esophagitis, atrial fibrillation, ITP, idiopathic polyneuropathy and cirrhosis. He presents to the emergency department with symptoms as noted above. Of note he has been on dialysis for the past 1-1/2 months. He also reports continued lower extremity swelling, that has not seem to be improved by dialysis today. Work-up in the emergency department included CT scan of abdomen pelvis which showed a 9 mm proximal ureteral stone with mild hydronephrosis and a 10 mm right lower pole renal stone. Principal Dx & Hospital Course #1 = Principal Diagnosis (1) Calculus of proximal right ureter: (2) UTI (urinary tract infection): (3) Hydronephrosis of right kidney: (4) End-stage renal disease on hemodialysis: (5) DVT (deep venous thrombosis): (6) (HFpEF) heart failure with preserved ejection fraction: (7) Hypertension: (8) CAD (coronary artery disease): (9) S/P CABG x 3: (10) S/P aortic valve replacement with bioprosthetic valve: (11) History of ITP: Plan 9 mm proximal right ureteral calculus/mild hydroureteronephrosis- Not able to void-->now s/p ureteral stent placement by Urology and now able to void, some mild hematuria UA collected after voiding and with evidence of UTI Ceftriaxone 1 g IV every 24 hours was given and will dc home with Cipro renally dosed x 7 days, f/u Urine cx after discharge Consult urology appreciated-f/u after discharge dc with Flomax daily and Oxybutynin prn stent pain. Would not use pyridium with his decreased renal function ESRD on HD- consult Nephro for HD management in hospital-had 4L removed with HD on 03/02 Still with significant extremity edema and pleural effusions CAD/hypertension/HFpEF/atrial fibrillation/status post AVR with bioprosthetic valve/status post CABG x3- held ELiquis for procedure but can restart continue amlodipine Continue carvedilol ANemia-of chronic kidney disease-managed by Haresh Segoviao-dc to home, doing very well Discharge Exam Constitutional WD/WN, vitals as above Respiratory normal respiratory effort; no cough Auscultation: + diminished lung sounds (at bases ); no crackles, no rhonchi and no wheezes Cardiovascular Rate/Rhythm: regular rate and regular rhythm Heart Sounds: + murmur (2/6 RUBI at RUSB) Chest (Breasts) Chest: + vascular access device or port (Right tunneled IJ catheter) Gastrointestinal (Abdomen) normal bowel sounds, soft, nontender, no hepatosplenomegaly Updated Medication List Medication Instructions Recorded Confirmed Type folic acid 400 mcg tablet 0.4 mg PO QAM 10/04/20 02/28/23 History cholecalciferol (vitamin D3) 50 50 mcg PO QAM 10/04/21 02/28/23 History mcg (2,000 unit) capsule apixaban 5 mg tablet (Eliquis) 5 mg PO BID #180 tabs 03/22/22 02/28/23 Rx gabapentin 100 mg capsule 100 mg PO TID #90 caps 09/15/22 02/28/23 Rx omeprazole 40 mg capsule,delayed 40 mg PO BID #180 caps 01/02/23 02/28/23 Rx release calcium acetate(phosphat bind) 667 667 mg PO TIDM #90 caps 02/07/23 02/28/23 Rx mg capsule amlodipine 10 mg tablet 10 mg PO DAILY #30 tabs 02/11/23 02/28/23 Rx rosuvastatin 10 mg tablet 10 mg PO DAILY #30 tabs 02/11/23 02/28/23 Rx escitalopram oxalate 10 mg tablet 10 mg PO HS #90 tabs 02/15/23 02/28/23 Rx (Lexapro) carvedilol 25 mg tablet 25 mg PO BIDM 02/28/23 02/28/23 History ciprofloxacin HCl 500 mg tablet 500 mg PO DAILY #7 tabs 03/02/23 Rx (Cipro) oxybutynin chloride 5 mg tablet 5 mg PO DAILY PRN stent pain #7 03/02/23 Rx tabs tamsulosin 0.4 mg capsule 0.4 mg PO HS #14 caps 03/02/23 Rx Hospital Stay Data Consultations 02/28/23 20:53 ED Decision to Admit Stat 02/28/23 23:18 Consult Urology Routine 03/01/23 09:29 Consult Nephrology Routine Procedures Performed Operation Date: 03/01/23 10:30 Actual Procedures p Cystoscopy, Right Retrograde Pyelogram, Right Ureteral Stent Placement(Right) - Jonas Caban MD Diagnostic Imagining Performed 02/28/23 19:16 CT Abd and Pelvis [CT abd pelvis wo con] Stat 03/01/23 16:00 FL retrograde includes kub Routine Pending Results Patient Have Any Pending Studies at Discharge: Yes (Urine culture) Discharge Instructions Given to Patient (Per Discharging Provider) You had a kidney stone and had a stent placed to allow flow of your urine again which helped. You have a urinary tract infection and will need to stay on antibiotics for at least 1 week. The urine culture result was not back yet but the antibiotic Cipro should work fine for this. Your doctor can follow up on the final results for the urine culture. You will need to follow up with Urology in 1-2 weeks for stone and stent management. They should contact you with this appointment date and time. Continue on with your usual dialysis sessions. Total Time Total Time Spent Total Time Spent (In Minutes): 35 min Coding Level of Care Code 40793 INP/OBS DISCH >30 MIN Diagnoses Calculus of proximal right ureter N20.1 UTI (urinary tract infection) N39.0 Hydronephrosis of right kidney N13.30 End-stage renal disease on hemodialysis N18.6; Z99.2 DVT (deep venous thrombosis) I82.409 (HFpEF) heart failure with preserved ejection fraction I50.30 Hypertension I10 CAD (coronary artery disease) I25.10 S/P CABG x 3 Z95.1 S/P aortic valve replacement with bioprosthetic valve Z95.3 History of ITP Z86.2
== END 2023-03-02 17:54 | disposition home or self-care (01) | DRG 660 ==
LOC: ED 15:11 → 3E 21:25 → SUATTDRO 21:25 → 3E 23:00